=== PATIENT | female | born 1990 | race Caucasian/White ===

== ENCOUNTER 2019-10-15 16:32 | Inpatient (IN) | payer OTHER, MEDICAID, SELFPAY ==
[2019-10-15] VITALS (13 sets, daily range): BP systolic 129–186; BP diastolic 81–119; PULSE 77–94; RESP 16–23; TEMP 36.1–36.6; O2SAT 95–99; BMI 53.1
--- NOTE | 2019-10-15 16:53 | ED_ITS ---
HPI - Neuro Symptoms/Deficit <Gregory Sharp MD - Last Filed: 10/19/19 07:05> General Chief Complaint: Neuro Symptoms/Deficit Stated Complaint: thinks she had a stroke Time Seen by Provider: 10/15/19 16:45 Source: patient Mode of arrival: Wheelchair Limitations: no limitations History of Present Illness HPI Narrative: The patient arrives by he POV complaining of right-sided weakness. Onset of symptoms was 16+ hours ago. She developed weakness when she got up to go to the toilet. She called for help back. She developed right- sided weakness and had to be assisted back to her bed. She has had weakness about the course today. She has no headache, visual changes, confusion or spe ech changes. She has no facial numbness. There was no change in her face. She has had persistent weakness the right leg and right foot. She denies ability to ambulate, but she was able to get to the family car with assistance. She is medications for hypertension, her mother thinks she takes HCTZ. She has no history of diabetes. She is nonsmoker. She has no history of heart disease or CVA. On Anticoagulants: No Related Data Previous Rx's Medication Instructions Recorded VIT#96/FERROUS FUM/FA 1 tab PO Q DAY #90 02/11/11 ( Tablet) Allergies Allergy/AdvReac Type Severity Reaction Status Date / Time Penicillins Allergy Unknown Rash Verified 10/16/19 14:04 hydrocodone AdvReac Unknown Nausea Verified 10/16/19 14:04 Review of Systems <Gregory Sharp MD - Last Filed: 10/19/19 07:05> Constitutional Constitutional: Denies chills, Denies fever(s) and Reports weakness Eyes Eyes: Denies blind spots and Denies change in vision ENT Ears, Nose, Mouth, and Throat: Denies change in voice Cardiovascular Cardiovascular: Denies chest pain, Denies irregular heart rhythm, Denies lightheadedness and Denies dyspnea Respiratory Respiratory: Denies cough, Denies dyspnea and Denies wheezing Gastrointestinal Gastrointestinal: Denies abdominal pain, Denies diarrhea, Denies nausea and Denies vomiting Musculoskeletal Musculoskeletal: Denies back pain, Denies myalgias and Reports numbness Comments: Right-sided weakness Integumentary/Breasts Skin/Breast: Denies erythema and Denies rash Neurologic Neurologic: Denies confusion, Reports numbness and Reports weakness Psychiatric Psychiatric: Denies anxiety, Denies confusion and Denies depression Allergic/Immunologic Allergic/Immunologic: Denies wheezing Patient History <Gregory Sharp MD - Last Filed: 10/19/19 07:05> Medical History (Updated 10/15/19 @ 23:08 by ELMER Schumacher) Hypertension (Acute) Tobacco dependence (Acute) Surgical History No history of previous surgery (Acute) Family History (Updated 10/15/19 @ 23:07 by ELMER Schumacher) Mother CVA (cerebral vascular accident) Father Heart disease Social History household members: spouse and children Smoking Status: Current every day smoker Smoking Status: Current every day smoker alcohol intake frequency: 0-2 drinks per day Substance Use Type: does not use Exam <Gregory Sharp MD - Last Filed: 10/19/19 07:05> Initial Vital Signs Initial Vital Signs: Vital Signs Temperature 97.3 F L 10/15/19 16:35 Pulse Rate 84 10/15/19 16:35 Respiratory Rate 16 10/15/19 16:35 Blood Pressure 176/113 H 10/15/19 16:35 Pulse Oximetry 95 10/15/19 16:35 Const General: cooperative, well developed and No acute distress Nutritional Appearance: well nourished [facility] Head: normocephalic and atraumatic Mouth: oral mucosae normal and moist mucous membranes Throat: posterior oropharynx normal Eyes General: appearance normal, both eyes and all related structures Eyelids: eyelids normal Conjunctivae: conjunctivae normal Sclera: sclerae normal Pupils: PERRL EOM: EOM intact bilaterally Neck Neck: No JVD Chest Chest: normal inspection of the chest Resp Effort & Inspection: normal respiratory effort and able to speak in complete sentences Auscultation: clear to auscultation bilaterally, no rales, no rhonchi and no wheezes Cardio Rate: regular rate Rhythm: regular rhythm Heart Sounds: no click, no gallops, no murmurs and no rubs Pulses: normal peripheral pulses GI Inspection: non-distended, large pannus and obesity Palpation: soft, no hepatosplenomegaly, No guarding, No pulsatile mass and No tender Auscultation: normal bowel sounds Back/Spine/Pelvis Back: No CVA tenderness Cervical Spine: cervical ROM normal Thoracic/Lumbar Spine: thoracic and lumbar spine normal to inspection Skin General: no rashes or lesions noted and No petechiae Neuro General: patient alert and patient oriented x3 Speech: speech normal Motor: other (Right-sided weakness.) Sensory Exam: other (Right on tingling/numbness.) Other: See NIHSS. Extrem General: no pedal edema and no calf tenderness Psych Appearance: well kempt Mental Status: mental status grossly normal Attitude: cooperative Thought Content: normal Judgment: judgment good <Ethan John DO - Last Filed: 10/16/19 06:06> Initial Vital Signs Initial Vital Signs: Vital Signs Temperature 97.3 F L 10/15/19 16:35 Pulse Rate 84 10/15/19 16:35 Respiratory Rate 16 10/15/19 16:35 Blood Pressure 176/113 H 10/15/19 16:35 Pulse Oximetry 95 10/15/19 16:35 Scores <Gregory Sharp MD - Last Filed: 10/19/19 07:05> NIH Stroke Scale Level of Conciousness: Alert, keenly responsive Ask month/age: Answers both questions correctly. Open/close eyes, close hand: Performs both tasks correctly Best gaze horizontal: Normal Visual haider: No visual loss Facial palsy: Normal symetrical movement Left arm drift: No drift for full 10 sec Right arm drift: Drifts down, not to bed Left leg drift: No drift for full 10 sec Right leg drift: Some effort against gravity, cannot maintain, drifts down to bed Limb ataxia: Present in one limb Sensory on face/arms/legs: Mild to moderate sensory loss, can tell touch Best language: No aphasia, normal Dysarthria: Normal Extinction or inattention: No abnormality Total NIH Stroke scale score: 5 Course <Gregory Sharp MD - Last Filed: 10/19/19 07:05> Course Course Narrative: The patient developed symptoms greater than 16 hours ago, limited interventions at this time. Her head CT is normal. Initial NIHSS is 5, based on right-sided weakness and numbness in the right arm. The weakness has improved since arrival. She is a smoker. Initial blood pressure was 176/119. She implies that she is compliant with her hypertension medications. A repeat blood pressure reveals systolic pressure of 183. Labetalol 10 mg IV was ordered. She has received aspirin. She is not a candidate for tPA based on the timeline. A CT angio of the head and neck has been ordered, cares transition to my ER partner, Dr. John. Assuming there is no findings suggesting need for neurosurgical intervention, the patient was admitted locally. Her blood pressure is improved to 162 systolic after receiving the labetalol. The current hospitalist, Dr Powell, has already been notified of the patient. Orders Ordered: Acetaminophen (Tylenol) 650 mg PO Q4HR PRN PRN Reason: Fever/Mild Pain (1-3) Last Admin: 10/17/19 08:35 Dose: 650 mg Documented by: FAUZIA Aspirin (Aspirin Ec) 81 mg PO DAILY COUNT INCLUDES THE [facility] Last Admin: 10/18/19 10:32 Dose: 81 mg Documented by: Admin: 10/17/19 08:34 Dose: 81 mg Documented by: Admin: 10/16/19 08:24 Dose: Not Given Documented by: Admin: 10/16/19 08:16 Dose: 81 mg Documented by: FAUZIA Atorvastatin Calcium (Lipitor) 40 mg PO BEDTIME COUNT INCLUDES THE [facility] Last Admin: 10/18/19 21:15 Dose: 40 mg Documented by: Admin: 10/17/19 20:22 Dose: 40 mg Documented by: Admin: 10/16/19 21:03 Dose: 40 mg Documented by: JEFFREY Clopidogrel Bisulfate (Plavix) 75 mg PO DAILY COUNT INCLUDES THE [facility] Last Admin: 10/18/19 10:31 Dose: 75 mg Documented by: Admin: 10/17/19 08:34 Dose: 75 mg Documented by: Admin: 10/16/19 08:24 Dose: Not Given Documented by: Admin: 10/16/19 08:16 Dose: 75 mg Documented by: FAUZIA Dextrose (D50w) 25 gm IV PRN PRN; Protocol PRN Reason: Hypoglycemia Enoxaparin Sodium (Lovenox) 40 mg SUBCUT DAILY COUNT INCLUDES THE [facility] Last Admin: 10/18/19 10:31 Dose: 40 mg Documented by: MARLYS Fish Oil (Fish Oil) 1,000 mg PO DAILY COUNT INCLUDES THE [facility] Last Admin: 10/18/19 10:31 Dose: 1,000 mg Documented by: Admin: 10/17/19 08:35 Dose: 1,000 mg Documented by: FAUZIA Insulin Aspart (Novolog Flexpen) [address] [facility] COUNT INCLUDES THE [facility]; Protocol Last Admin: 10/18/19 21:12 Dose: Not Given Documented by: Admin: 10/18/19 17:03 Dose: Not Given Documented by: Admin: 10/18/19 13:04 Dose: Not Given Documented by: Admin: 10/18/19 08:42 Dose: Not Given Documented by: Admin: 10/17/19 20:22 Dose: Not Given Documented by: Admin: 10/17/19 17:13 Dose: Not Given Documented by: Admin: 10/17/19 11:48 Dose: Not Given Documented by: Admin: 10/17/19 08:13 Dose: Not Given Documented by: Admin: 10/16/19 20:54 Dose: Not Given Documented by: Admin: 10/16/19 16:53 Dose: Not Given Documented by: Admin: 10/16/19 12:11 Dose: Not Given Documented by: FAUZIA Labetalol HCl (Trandate) 10 mg IV Q4HR PRN PRN Reason: Hypertension Lisinopril (Zestril) 10 mg PO DAILY COUNT INCLUDES THE [facility] Last Admin: 10/18/19 10:31 Dose: 10 mg Documented by: MARLYS Metformin HCl (Glucophage) 500 mg PO 0800,1700 COUNT INCLUDES THE [facility] Last Admin: 10/18/19 17:11 Dose: 500 mg Documented by: Admin: 10/18/19 10:44 Dose: 500 mg Documented by: Admin: 10/17/19 17:23 Dose: 500 mg Documented by: PATRICIO Naloxone HCl (Narcan) 0.2 mg IV Q2MIN PRN PRN Reason: Opiate Reversal Ondansetron HCl (Zofran) 4 mg IV Q6HR PRN PRN Reason: Nausea And Vomiting Sodium Chloride (Normal Saline 0.9% Flush) 10 ml IV BID COUNT INCLUDES THE [facility] Last Admin: 10/18/19 21:15 Dose: 10 ml Documented by: Admin: 10/18/19 10:32 Dose: 10 ml Documented by: Admin: 10/17/19 20:22 Dose: 10 ml Documented by: PATRICIO Sodium Chloride (Normal Saline 0.9% Flush) 10 ml IV PRN PRN PRN Reason: Flush Discontinued Medications Acetaminophen (Tylenol) 650 mg PO Q6HR PRN PRN Reason: Fever/Mild Pain (1-3) Last Admin: 10/16/19 11:20 Dose: 650 mg Documented by: FAUZIA Aspirin (Aspirin) 325 mg PO NOW ONE Stop: 10/15/19 18:36 Last Admin: 10/15/19 18:57 Dose: Not Given Documented by: KAYLEY Aspirin (Aspirin Chew) 324 mg PO NOW ONE Stop: 10/15/19 18:54 Last Admin: 10/15/19 19:00 Dose: 324 mg Documented by: KAYLEY Aspirin (Aspirin Ec) 81 mg PO DAILY EDUARDO Atorvastatin Calcium (Lipitor) 20 mg PO BEDTIME EDUARDO Clopidogrel Bisulfate (Plavix) 75 mg PO DAILY EDUARDO Sodium Chloride (Normal Saline 0.9%) 1,000 mls @ 150 mls/hr IV CONT EDUARDO Last Infusion: 10/16/19 11:20 Dose: 0 mls/hr Documented by: Admin: 10/16/19 08:58 Dose: 150 mls/hr Documented by: Infusion: 10/16/19 02:59 Dose: 0 mls/hr Documented by: Admin: 10/16/19 02:59 Dose: 150 mls/hr Documented by: Infusion: 10/16/19 00:07 Dose: 150 mls/hr Documented by: Infusion: 10/15/19 21:46 Dose: 150 mls/hr Documented by: Admin: 10/15/19 17:27 Dose: 150 mls/hr Documented by: KAYLEY Sodium Chloride (Normal Saline 0.9%) 1,000 mls @ 100 mls/hr IV CONT EDUARDO Last Infusion: 10/17/19 08:36 Dose: 0 mls/hr Documented by: Admin: 10/17/19 06:56 Dose: 100 mls/hr Documented by: Infusion: 10/17/19 06:56 Dose: 100 mls/hr Documented by: Admin: 10/16/19 21:04 Dose: 100 mls/hr Documented by: JEFFREY Labetalol HCl (Trandate) 10 mg IV NOW ONE Stop: 10/15/19 17:53 Last Admin: 10/15/19 18:38 Dose: 10 mg Documented by: KAYLEY Vital Signs Vital signs: Vital Signs - 8 hr 10/15/19 16:35 10/15/19 17:24 10/15/19 17:30 Temperature 97.3 F L Pulse Rate 84 88 87 Respiratory Rate 16 20 21 Blood Pressure 176/113 H Pulse Oximetry 95 97 98 10/15/19 17:31 10/15/19 18:00 10/15/19 18:01 Temperature Pulse Rate 88 77 82 Respiratory Rate 20 20 20 Blood Pressure 182/99 H 186/103 H Pulse Oximetry 97 98 98 10/15/19 18:30 10/15/19 18:38 10/15/19 18:44 Temperature Pulse Rate 77 94 H 90 Respiratory Rate 22 22 23 Blood Pressure 176/119 H 173/98 H Pulse Oximetry 97 99 97 10/15/19 19:08 Temperature Pulse Rate 83 Respiratory Rate Blood Pressure 162/95 H Pulse Oximetry <Ethan John, - Last Filed: 10/16/19 06:06> Course Course Narrative: Patient received in sign-out from daytime provider. I have performed an independent history and physical and concur with the above notes. Currently waiting on consultation with Stroke Team I have now spoken with Stroke Neurologist at [facility] and discussed the case. They recommend admission, echo, coags, and MRI Orders Ordered: Acetaminophen (Tylenol) 650 mg PO Q4HR PRN PRN Reason: Fever/Mild Pain (1-3) Last Admin: 10/17/19 08:35 Dose: 650 mg Documented by: FAUZIA Aspirin (Aspirin Ec) 81 mg PO DAILY COUNT INCLUDES THE [facility] Last Admin: 10/18/19 10:32 Dose: 81 mg Documented by: Admin: 10/17/19 08:34 Dose: 81 mg Documented by: Admin: 10/16/19 08:24 Dose: Not Given Documented by: Admin: 10/16/19 08:16 Dose: 81 mg Documented by: FAUZIA Atorvastatin Calcium (Lipitor) 40 mg PO BEDTIME COUNT INCLUDES THE [facility] Last Admin: 10/18/19 21:15 Dose: 40 mg Documented by: Admin: 10/17/19 20:22 Dose: 40 mg Documented by: Admin: 10/16/19 21:03 Dose: 40 mg Documented by: JEFFREY Clopidogrel Bisulfate (Plavix) 75 mg PO DAILY COUNT INCLUDES THE [facility] Last Admin: 10/18/19 10:31 Dose: 75 mg Documented by: Admin: 10/17/19 08:34 Dose: 75 mg Documented by: Admin: 10/16/19 08:24 Dose: Not Given Documented by: Admin: 10/16/19 08:16 Dose: 75 mg Documented by: FAUZIA Dextrose (D50w) 25 gm IV PRN PRN; Protocol PRN Reason: Hypoglycemia Enoxaparin Sodium (Lovenox) 40 mg SUBCUT DAILY COUNT INCLUDES THE [facility] Last Admin: 10/18/19 10:31 Dose: 40 mg Documented by: MARLYS Fish Oil (Fish Oil) 1,000 mg PO DAILY COUNT INCLUDES THE [facility] Last Admin: 10/18/19 10:31 Dose: 1,000 mg Documented by: Admin: 10/17/19 08:35 Dose: 1,000 mg Documented by: FAUZIA Insulin Aspart (Novolog Flexpen) 0 unit SUBCUT ACHS COUNT INCLUDES THE [facility]; Protocol Last Admin: 10/18/19 21:12 Dose: Not Given Documented by: Admin: 10/18/19 17:03 Dose: Not Given Documented by: Admin: 10/18/19 13:04 Dose: Not Given Documented by: Admin: 10/18/19 08:42 Dose: Not Given Documented by: Admin: 10/17/19 20:22 Dose: Not Given Documented by: Admin: 10/17/19 17:13 Dose: Not Given Documented by: Admin: 10/17/19 11:48 Dose: Not Given Documented by: Admin: 10/17/19 08:13 Dose: Not Given Documented by: Admin: 10/16/19 20:54 Dose: Not Given Documented by: Admin: 10/16/19 16:53 Dose: Not Given Documented by: Admin: 10/16/19 12:11 Dose: Not Given Documented by: FAUZIA Labetalol HCl (Trandate) 10 mg IV Q4HR PRN PRN Reason: Hypertension Lisinopril (Zestril) 10 mg PO DAILY COUNT INCLUDES THE [facility] Last Admin: 10/18/19 10:31 Dose: 10 mg Documented by: MARLYS Metformin HCl (Glucophage) 500 mg PO 0800,1700 COUNT INCLUDES THE [facility] Last Admin: 10/18/19 17:11 Dose: 500 mg Documented by: Admin: 10/18/19 10:44 Dose: 500 mg Documented by: Admin: 10/17/19 17:23 Dose: 500 mg Documented by: PATRICIO Naloxone HCl (Narcan) 0.2 mg IV Q2MIN PRN PRN Reason: Opiate Reversal Ondansetron HCl (Zofran) 4 mg IV Q6HR PRN PRN Reason: Nausea And Vomiting Sodium Chloride (Normal Saline 0.9% Flush) 10 ml IV BID COUNT INCLUDES THE [facility] Last Admin: 10/18/19 21:15 Dose: 10 ml Documented by: Admin: 10/18/19 10:32 Dose: 10 ml Documented by: Admin: 10/17/19 20:22 Dose: 10 ml Documented by: PATRICIO Sodium Chloride (Normal Saline 0.9% Flush) 10 ml IV PRN PRN PRN Reason: Flush Discontinued Medications Acetaminophen (Tylenol) 650 mg PO Q6HR PRN PRN Reason: Fever/Mild Pain (1-3) Last Admin: 10/16/19 11:20 Dose: 650 mg Documented by: FAUZIA Aspirin (Aspirin) 325 mg PO NOW ONE Stop: 10/15/19 18:36 Last Admin: 10/15/19 18:57 Dose: Not Given Documented by: ELARTIN Aspirin (Aspirin Chew) 324 mg PO NOW ONE Stop: 10/15/19 18:54 Last Admin: 10/15/19 19:00 Dose: 324 mg Documented by: RMARTIN Aspirin (Aspirin Ec) 81 mg PO DAILY COUNT INCLUDES THE [facility] Atorvastatin Calcium (Lipitor) 20 mg PO BEDTIME COUNT INCLUDES THE [facility] Clopidogrel Bisulfate (Plavix) 75 mg PO DAILY COUNT INCLUDES THE [facility] Sodium Chloride (Normal Saline 0.9%) 1,000 mls @ 150 mls/hr IV CONT COUNT INCLUDES THE [facility] Last Infusion: 10/16/19 11:20 Dose: 0 mls/hr Documented by: Admin: 10/16/19 08:58 Dose: 150 mls/hr Documented by: Infusion: 10/16/19 02:59 Dose: 0 mls/hr Documented by: Admin: 10/16/19 02:59 Dose: 150 mls/hr Documented by: Infusion: 10/16/19 00:07 Dose: 150 mls/hr Documented by: Infusion: 10/15/19 21:46 Dose: 150 mls/hr Documented by: Admin: 10/15/19 17:27 Dose: 150 mls/hr Documented by: KAYLEY Sodium Chloride (Normal Saline 0.9%) 1,000 mls @ 100 mls/hr IV CONT EDUARDO Last Infusion: 10/17/19 08:36 Dose: 0 mls/hr Documented by: Admin: 10/17/19 06:56 Dose: 100 mls/hr Documented by: Infusion: 10/17/19 06:56 Dose: 100 mls/hr Documented by: Admin: 10/16/19 21:04 Dose: 100 mls/hr Documented by: JEFFREY Labetalol HCl (Trandate) 10 mg IV NOW ONE Stop: 10/15/19 17:53 Last Admin: 10/15/19 18:38 Dose: 10 mg Documented by: KAYLEY Vital Signs Vital signs: Vital Signs - 8 hr 10/15/19 16:35 10/15/19 17:24 10/15/19 17:30 Temperature 97.3 F L Pulse Rate 84 88 87 Respiratory Rate 16 20 21 Blood Pressure 176/113 H Pulse Oximetry 95 97 98 10/15/19 17:31 10/15/19 18:00 10/15/19 18:01 Temperature Pulse Rate 88 77 82 Respiratory Rate 20 20 20 Blood Pressure 182/99 H 186/103 H Pulse Oximetry 97 98 98 10/15/19 18:30 10/15/19 18:38 10/15/19 18:44 Temperature Pulse Rate 77 94 H 90 Respiratory Rate 22 22 23 Blood Pressure 176/119 H 173/98 H Pulse Oximetry 97 99 97 10/15/19 19:08 Temperature Pulse Rate 83 Respiratory Rate Blood Pressure 162/95 H Pulse Oximetry MDM - Neuro Symptoms/Deficit <Gregory Sharp MD - Last Filed: 10/19/19 07:05> Lab Data Result diagrams: 10/17/19 06:00 10/17/19 06:00 Labs: Lab Results 10/15/19 10/15/19 10/15/19 Range/Units 16:47 16:47 16:47 WBC 9.3 (4.5-11.0) X10^3/uL RBC 6.26 H (4.0-5.2) X10^6/uL Hgb 19.1 H (12.0-16.0) g/dL Hct 57.4 H (36-46) % MCV 91.7 (80-100) fL MCH 30.5 (26-34) PG MCHC 33.3 (30-36) % RDW 14.9 H (11.6-14.8) % Plt Count 209 (150-400) X10^3/uL Neut % (Auto) 50.4 (50-75) % Lymph % (Auto) 39.6 (25-40) % [place] % (Auto) 8.5 (3-14) % Eos % (Auto) 0.9 L (2-4) % Baso % (Auto) 0.6 (0-2) % Neut # (Auto) 4700 (1050-3870) /uL Lymph # (Auto) 3700 (4011-0762) /uL [place] # (Auto) 800 (0-900) /uL Eos # (Auto) 100 (0-450) /uL Baso # (Auto) 100 (0-100) /uL PT 11.4 (10.1-12.7) SECONDS INR 1.0 (0.9-1.3) APTT 41 H (26.4-36.2) SECONDS Sodium 137 (137-145) mmol/L Potassium 4.0 (3.4-5.1) mmol/L Chloride 107 (98-107) mmol/L Carbon Dioxide 26 (22-32) mmol/L BUN 13 (7-17) mg/dL Creatinine 0.63 (0.52-1.04) mg/dL Estimated GFR > 60.0 (>60) mL/min BUN/Creatinine Ratio 20.6 (6-22) Glucose 123 H (70-100) mg/dL Calcium 9.1 (8.4-10.2) mg/dL Ethyl Alcohol < 10 ( - 10) mg/dL COVID-19 PCR (Negative) 10/15/19 Range/Units 19:04 WBC (4.5-11.0) X10^3/uL RBC (4.0-5.2) X10^6/uL Hgb (12.0-16.0) g/dL Hct (36-46) % MCV (80-100) fL MCH (26-34) PG MCHC (30-36) % RDW (11.6-14.8) % Plt Count (150-400) X10^3/uL Neut % (Auto) (50-75) % Lymph % (Auto) (25-40) % [place] % (Auto) (3-14) % Eos % (Auto) (2-4) % Baso % (Auto) (0-2) % Neut # (Auto) (1861-0462) /uL Lymph # (Auto) (1441-4403) /uL [place] # (Auto) (0-900) /uL Eos # (Auto) (0-450) /uL Baso # (Auto) (0-100) /uL PT (10.1-12.7) SECONDS INR (0.9-1.3) APTT (26.4-36.2) SECONDS Sodium (137-145) mmol/L Potassium (3.4-5.1) mmol/L Chloride (98-107) mmol/L Carbon Dioxide (22-32) mmol/L BUN (7-17) mg/dL Creatinine (0.52-1.04) mg/dL Estimated GFR (>60) mL/min BUN/Creatinine Ratio (6-22) Glucose (70-100) mg/dL Calcium (8.4-10.2) mg/dL Ethyl Alcohol ( - 10) mg/dL COVID-19 PCR Negative (Negative) Point of Care Testing Glucose POC [address] scan - head: Radiologist's Impression: 80 Gregory Sharp MD Find Patient Imaging - Mehreen Hart 29 F 1990 ACTIVITY DATE EXAM STATUS AUTHOR 10/15/19 16:[address] [address] [address] Scan Report Signed Patient: Mehreen HartMR#: [id number] : 1990Acct:[id number] Age/Sex: 29 / FDate of Service: 10/15/19 Loc: ED Accession Number: [id number] Procedure: CT Stroke Ordering Provider: Gregory Sharp MD PROCEDURE: CT STROKE INDICATIONS: Right-sided weakness, suspect CVA. TECHNIQUE: Noncontrast 4.5 mm thick angled axial sections acquired from the foramen magnum to the vertex, with coronal reformats. For radiation dose reduction, the following was used: automated exposure control, adjustment of mA and/or kV according to patient size. COMPARISON: None. FINDINGS: Image quality: Excellent. CSF spaces: Basal cisterns are patent. No extra-axial fluid collections. Ventricles are normal in size and shape. Brain: No midline shift. No intracranial masses or hemorrhage. Fontanez-white matter interface is normal. Skull and face: Calvarium and visualized facial bones are intact, without suspicious lesions. Sinuses: Visualized sinuses and mastoids are clear. IMPRESSION: 1. No CT evidence of acute intracranial process. 2. Findings called to Dr. Sharp in the emergency room at 16:10 hours [place] daylight time. This study fulfills neurological imaging criteria for inclusion or exclusion of acute stroke therapies based on available published neurological imaging guidelines. Dictated by: Kenia Ghosh M.D. on 10/15/2019 at 16:07 Approved by: Kenia Ghosh M.D. on 10/15/2019 at 16:11 ECG Data Attestation: I personally reviewed and interpreted this ECG as follows: (Normal sinus rhythm, rate 91 beats per minute. Normal intervals. Poor R-wave progression to the anterior leads. No acute ST T wave changes. ) <Ethan John, - Last Filed: 10/16/19 06:06> Lab Data Labs: Lab Results 10/15/19 10/15/19 10/15/19 Range/Units 16:47 16:47 16:47 WBC 9.3 (4.5-11.0) X10^3/uL RBC 6.26 H (4.0-5.2) X10^6/uL Hgb 19.1 H (12.0-16.0) g/dL Hct 57.4 H (36-46) % MCV 91.7 (80-100) fL MCH 30.5 (26-34) PG MCHC 33.3 (30-36) % RDW 14.9 H (11.6-14.8) % Plt Count 209 (150-400) X10^3/uL Neut % (Auto) 50.4 (50-75) % Lymph % (Auto) 39.6 (25-40) % [place] % (Auto) 8.5 (3-14) % Eos % (Auto) 0.9 L (2-4) % Baso % (Auto) 0.6 (0-2) % Neut # (Auto) 4700 (1132-3453) /uL Lymph # (Auto) 3700 (3178-5502) /uL [place] # (Auto) 800 (0-900) /uL Eos # (Auto) 100 (0-450) /uL Baso # (Auto) 100 (0-100) /uL PT 11.4 (10.1-12.7) SECONDS INR 1.0 (0.9-1.3) APTT 41 H (26.4-36.2) SECONDS Sodium 137 (137-145) mmol/L Potassium 4.0 (3.4-5.1) mmol/L Chloride 107 (98-107) mmol/L Carbon Dioxide 26 (22-32) mmol/L BUN 13 (7-17) mg/dL Creatinine 0.63 (0.52-1.04) mg/dL Estimated GFR > 60.0 (>60) mL/min BUN/Creatinine Ratio 20.6 (6-22) Glucose 123 H (70-100) mg/dL Calcium 9.1 (8.4-10.2) mg/dL Ethyl Alcohol < 10 ( - 10) mg/dL COVID-19 PCR (Negative) 10/15/19 Range/Units 19:04 WBC (4.5-11.0) X10^3/uL RBC (4.0-5.2) X10^6/uL Hgb (12.0-16.0) g/dL Hct (36-46) % MCV (80-100) fL MCH (26-34) PG MCHC (30-36) % RDW (11.6-14.8) % Plt Count (150-400) X10^3/uL Neut % (Auto) (50-75) % Lymph % (Auto) (25-40) % [place] % (Auto) (3-14) % Eos % (Auto) (2-4) % Baso % (Auto) (0-2) % Neut # (Auto) (4543-0837) /uL Lymph # (Auto) (5926-6914) /uL [place] # (Auto) (0-900) /uL Eos # (Auto) (0-450) /uL Baso # (Auto) (0-100) /uL PT (10.1-12.7) SECONDS INR (0.9-1.3) APTT (26.4-36.2) SECONDS Sodium (137-145) mmol/L Potassium (3.4-5.1) mmol/L Chloride (98-107) mmol/L Carbon Dioxide (22-32) mmol/L BUN (7-17) mg/dL Creatinine (0.52-1.04) mg/dL Estimated GFR (>60) mL/min BUN/Creatinine Ratio (6-22) Glucose (70-100) mg/dL Calcium (8.4-10.2) mg/dL Ethyl Alcohol ( - 10) mg/dL COVID-19 PCR Negative (Negative) Point of Care Testing Glucose POC 94 Critical Care Time <Gregory Sharp MD - Last Filed: 10/19/19 07:05> Critical Care Time Critical Care Time: Yes Total Critical Care Time: 30 Attestation: Time included initial evaluation of patient, medical decision making, review of EKG, radiology and lab data, and discussion of the clinical findings with the patient. Time included consultation with the admitting hospitalist. Discharge Plan Departure Patient Disposition: Admitted As Inpatient Clinical Impression: Acute CVA (cerebrovascular accident) Hypertension Qualifiers: Hypertension type: essential hypertension Qualified Code(s): I10 - Essential (primary) hypertension Discharge Date/Time: 10/15/19 21:53 Admit Date/Time: 10/15/19 20:53 Admit Provider: Emilie Verduzco
[2019-10-15] MEDS: SODIUM CHLORIDE 0.9% 1,000 ML 150 ML IV (17:27)
[2019-10-15 17:45] LABS: Add Manual Diff / Slide Review NO; BUN Creatinine Ratio 20.6 (6-22); Basophils Absolute Auto 100 /uL (0-100); Basophils Percent Auto 0.6 % (0-2); Blood Urea Nitrogen 13 mg/dL (7-17); Calcium 9.1 mg/dL (8.4-10.2); Carbon Dioxide 26 mmol/L (22-32); Chloride 107 mmol/L (98-107); Eosinophils Absolute Auto 100 /uL (0-450); Eosinophils Percent Auto 0.9 % (2-4); Estimated Glomerular Filt Rate > 60.0 mL/min (>60); Ethanol (ETOH) < 10 mg/dL; Glucose 123 mg/dL (70-100); HEMOLYSIS 39 (0-50); Hematocrit 57.4 % (36-46); Hemoglobin 19.1 g/dL (12.0-16.0); Lymphocytes Absolute Auto 3700 /uL (1100-4500); Lymphocytes Percent Auto 39.6 % (25-40); Mean Corpuscular HGB Conc 33.3 % (30-36); Mean Corpuscular Hemoglobin 30.5 PG (26-34); Mean Corpuscular Volume 91.7 fL (80-100); Monocytes Absolute Auto 800 /uL (0-900); Monocytes Percent Auto 8.5 % (3-14); Neutrophils Absolute Auto 4700 /uL (1500-7000); Neutrophils Percent Auto 50.4 % (50-75); Platelet Count 209 X10^3/uL (150-400); Red Cell Distribution Width 14.9 % (11.6-14.8); Sodium 137 mmol/L (137-145); White Blood Cell Count 9.3 X10^3/uL (4.5-11.0)
[2019-10-15 17:46] LABS: Prothrombin Time 11.4 SECONDS (10.1-12.7); Red Blood Cell Count 6.26 X10^6/uL (4.0-5.2)
[2019-10-15 17:49] LABS: PTT Partial Thromboplastin Tim 41 SECONDS (26.4-36.2)
[2019-10-15] MEDS: LABETALOL 20 MG/4 ML SYRINGE 10 MG IV (18:38)
--- NOTE | 2019-10-15 18:58 | DI.CT.S_ITS ---
PROCEDURE: CT ANGIO HEAD AND NECK INDICATIONS: CVA with right-sided deficit TECHNIQUE: Pre-contrast 4.5 mm thick sections acquired from the foramen magnum to the vertex. After the administration of intravenous contrast, 1 mm thick sections acquired from the aortic arch through the [place]. Post-contrast 4.5 mm thick sections then re-acquired from the foramen magnum to the vertex. 3-dimensional hfatcci-coiuuobia-swoervndpj (MIP) and/or volume rendering reformats were acquired of the central intracranial vasculature and neck separately. COMPARISON: None. FINDINGS: Image quality: Excellent. HEAD CT ANGIOGRAPHY: Anterior circulation: Intracranial internal carotid arteries are normal in size and flow. The flow within the paired anterior cerebral arteries is normal and symmetric. The flow within the middle cerebral arteries is normal and symmetric. The anterior communicating artery is seen. No aneurysms are seen. Posterior circulation: Visualized portions of the vertebral arteries demonstrate normal caliber, and join to form a normal appearing basilar artery. Flow within the posterior cerebral arteries is normal and symmetric. No aneurysms are seen. NECK CT ANGIOGRAPHY: Carotid system: The great vessels demonstrate a conventional anatomy as they arise from the aortic arch. The origins of the common carotid arteries appear patent. The common carotid arteries demonstrate normal caliber and courses. The bifurcation regions are both widely patent. The internal carotid arteries demonstrate normal calibers and courses. Posterior circulation: The origins of the vertebral arteries both appear widely patent. The more superior extracranial portions of both vertebral arteries also demonstrate normal courses and calibers. They join to form a normal appearing basilar artery. Soft tissues: Visualized neck soft tissues demonstrate no suspicious abnormalities. Bones: No suspicious bony lesions. Visualized cervical spine appears normally aligned. IMPRESSION: Limited exam due to patient body habitus. No branch occlusion or hemodynamically significant stenosis of the major intracranial arterial circulation. Cervical carotid and vertebral arteries demonstrate wide patency. Any quantitative measurements of stenosis were performed using NASCET criteria. Dictated by: Ravi Acharya M.D. on 10/15/2019 at 19:49 Approved by: Ravi Acharya M.D. on 10/15/2019 at 19:53
[2019-10-15] MEDS: ASPIRIN 81 MG CHEW TAB 324 MG PO (19:00)
[2019-10-15 20:02] LABS: COVID19 -Nasal RAPID Negative (Negative)
--- NOTE | 2019-10-15 22:51 | PC.NURSE ---
Pt arrived to RM 210 from ED @ 2200 Alert/oriented. SpO2 96% RA Pt is able to bend right arm to side, unable to move right leg at all. Pt oriented to room & Call system Call light w/in reach, bed alarm on for pt safety. Continue w/plan of care.
--- NOTE | 2019-10-15 23:09 | P.HP_ITS ---
History of Present Illness History of Present Illness Date Patient Seen: 10/15/19 Time Patient Seen: 21:45 Date of Onset of Symptoms: 10/14/19 Chief complaint: thinks she had a stroke Narrative: Mehreen Perez is a 29-year-old morbidly obese female resident of [facility] and smoker with a limited medical history though does include h ypertension and use of a copper T IUD presented to the emergency department after a less than 24 hour history of development of weakness on her left side. She was in the bathroom and sitting on the toilet when she felt her left arm and leg go numb. She was unable to move off of the toilet and summoned her to come and a sister into bed. When she woke up this morning she continued to have weakness on that side. She denies a history of cervical neck problems, denies aphasia, difficulty swallowing, vision changes, headache, chest pain, shortness of breath, nausea or vomiting, dysuria, diarrhea or constipation, or falling. She states that she takes medications for hypertension but does not know what it is. In the ED they assessed her NIH score of 5. CT of the brain and CTA of the head neck were both negative for acute intracranial process. Her case was discussed with [facility] who recommended close monitoring of patient overnight and to have her undergo MRI imaging of her head as well as an echocardiogram. Temperature 97.8, blood pressure 129/81, heart rate 94, respiratory rate 20, oxygen saturation 97% on room air, she weighs 158.6 kg with a BMI 53.1. WBC 9.3, RBC 6.26, hemoglobin 19.1, hematocrit 57.4, platelet count of 209, sodium 137, potassium 4.0, chloride 107, CO2 26, creatinine 0.63, BUN 13, GFR greater than 60, glucose 123, calcium 9.1, and COVID-19 negative. Patient History Medical History (Updated 10/15/19 @ 23:08 by ELMER Schumacher) Hypertension (Acute) Tobacco dependence (Acute) Surgical History No history of previous surgery (Acute) Family & Social History Family History (Updated 10/15/19 @ 23:07 by ELMER Schumacher) Mother CVA (cerebral vascular accident) Father Heart disease Social History: household members spouse,children Prior Living Arrangements House Safety & Behavioral: Feels Safe in Current Yes Environment Been Physically Hurt or No Threatened By a Person Suicidal Ideation Description None Suicide Plan Description No Plan Tobacco & Substance use: Smoking Status Current every day smoker alcohol intake frequency 0-2 drinks per day Substance Use Type does not use Meds Home Medications and Allergies Home Medications Medication Instructions Recorded Confirmed Type VIT#96/FERROUS FUM/FA 1 tab PO Q DAY #90 02/11/11 Rx ( Tablet) Allergies Allergy/AdvReac Type Severity Reaction Status Date / Time From Vicodin Allergy Unknown NAUSEA Uncoded 06/16/17 12:08 Penicillin Allergy Unknown RASH Uncoded 06/16/17 12:08 Review of Systems Review of Systems ROS: Yes All systems reviewed with the patient and are negative except as otherwise documented Exam Vital Signs (past 8 hours): - 10/15/19 16:35 10/15/19 17:24 10/15/19 17:30 Temperature 97.3 F L Pulse Rate 84 88 87 Respiratory Rate 16 20 21 Blood Pressure 176/113 H Pulse Oximetry 95 97 98 10/15/19 17:31 10/15/19 18:00 10/15/19 18:01 Temperature Pulse Rate 88 77 82 Respiratory Rate 20 20 20 Blood Pressure 182/99 H 186/103 H Pulse Oximetry 97 98 98 10/15/19 18:30 10/15/19 18:38 10/15/19 18:44 Temperature Pulse Rate 77 94 H 90 Respiratory Rate 22 22 23 Blood Pressure 176/119 H 173/98 H Pulse Oximetry 97 99 97 10/15/19 19:08 10/15/19 22:15 Temperature 97.8 F Pulse Rate 83 94 H Respiratory Rate 20 Blood Pressure 162/95 H 129/81 Pulse Oximetry 97 Oxygen Delivery Method Room Air Narrative Exam Narrative: Gen: Alert, oriented, morbidly obese 29 y.o. female, laying flat on the gurney HEENT: normocephalic, atraumatic, conjunctiva clear, sclera non-icteric, oral mucosa pink and moist Neck: supple, full ROM, no JVD, trachea is midline Resp: Lungs CTA, non-labored breathing CV: RRR, no murmur or rubs Abd: soft, non-tender, normoactive BTs Skin: Somewhat diaphoretic, no lesions or rashes, dry and intact Neuro: Alert and oriented X 4 w left-sided weakness. Speech clear and coherent. Nursing NIH stroke scale assessment at 0100 score of 8 Extremities: Normally is ambulatory, negative Mahad?s sign Psyche: normal mood and affect. Objective Labs Result Diagrams: 10/15/19 16:47 10/15/19 16:47 Labs: Laboratory Results - last 24 hr 10/15/19 10/15/19 10/15/19 16:47 16:47 16:47 WBC 9.3 RBC 6.26 H Hgb 19.1 H Hct 57.4 H MCV 91.7 MCH 30.5 MCHC 33.3 RDW 14.9 H Plt Count 209 Neut % (Auto) 50.4 Lymph % (Auto) 39.6 Mccreary % (Auto) 8.5 Eos % (Auto) 0.9 L Baso % (Auto) 0.6 Neut # (Auto) 4700 Lymph # (Auto) 3700 Mccreary # (Auto) 800 Eos # (Auto) 100 Baso # (Auto) 100 PT 11.4 INR 1.0 APTT 41 H Sodium 137 Potassium 4.0 Chloride 107 Carbon Dioxide 26 BUN 13 Creatinine 0.63 Estimated GFR > 60.0 BUN/Creatinine Ratio 20.6 Glucose 123 H Calcium 9.1 Ethyl Alcohol < 10 COVID-19 PCR 10/15/19 19:04 WBC RBC Hgb Hct MCV MCH MCHC RDW Plt Count Neut % (Auto) Lymph % (Auto) Mccreary % (Auto) Eos % (Auto) Baso % (Auto) Neut # (Auto) Lymph # (Auto) Mccreary # (Auto) Eos # (Auto) Baso # (Auto) PT INR APTT Sodium Potassium Chloride Carbon Dioxide BUN Creatinine Estimated GFR BUN/Creatinine Ratio Glucose Calcium Ethyl Alcohol COVID-19 PCR Negative Assessment & Plan Assessment & Plan narrative: Preethi Hart will be admitted as an inpatient for further evaluation of a left-sided CVA. Suspected left-sided CVA, acute, present on admission -CT of the brain and CTA of the head and neck were negative for acute intracranial process -she will undergo MRI of the head tomorrow -echocardiogram -start Plavix and aspirin on 10/15 if no evidence of an intracranial bleed -allow for permissive hypertension for brain perfusion -initiate atorvastatin 40 mg p.o. daily for anti-platelet effect -consider tertiary hospital transfer if patient develops worsening symptoms -PT/OT/speech will need to see her in the morning Tobacco dependence, chronic, present on admission -encouraged patient to quit smoking as this represents significant risk factor for CVA Morbid obesity, chronic, present on admission -she has a BMI of 53.2, she will be counseled on the need for weight loss Consults: ED consulted with [facility]. Patient is admitted under inpatient status with expected length of stay greater than 2 midnights due to severity of presenting symptoms, risk of adverse event, and complexity of treatment plan. FEN: IV NS at 100 mL/hour, NPO until swallow screen then low-sodium diet,BMP and magnesium in the am. VTE prophylaxis: Bilateral SCDs Dispo: Unknown at this time, she may require a short rehab stay or in-home rehabilitation Code Status: Full code as discussed with patient COVID-19 COVID-19 status: Negative Result date/Date tested (Pos, Neg/Pending): 10/15/19 Quality VTE Deep Vein Thrombosis/Pulmonary Embolism Present on Admission: No
[2019-10-16] VITALS (7 sets, daily range): BP systolic 145–169; BP diastolic 86–105; PULSE 77–98; RESP 16–20; TEMP 36.1–37.3; O2SAT 95–98
[2019-10-16] MEDS: SODIUM CHLORIDE 0.9% 1,000 ML 150 ML IV ×2 (02:59→08:58)
--- NOTE | 2019-10-16 05:48 | PC.NURSE ---
Slept most of the shift, awake now swallow evaluation done. No coughing noted, swallow without any problems. Able to move her RUE & RLE in bed & repositioned self in bed indep. Declined to transfer to BS, used bed barragan in bed but unable to void. Bladder scanned FLIGHT STEWARD reported 80 cc in the bladder. NPO all shift per order, will cont. POC & monitor.
[2019-10-16 06:25] LABS: HEMOLYSIS < 15 (0-50); Potassium 3.6 mmol/L (3.4-5.1)
[2019-10-16 06:26] LABS: Alanine Aminotransferase 37 IU/L (<35); Albumin 3.5 g/dL (3.5-5.0); Albumin Globulin Ratio 1.1 (1.0-2.8); Alkaline Phosphatase 66 U/L (38-126); Aspartate Aminotransferase 32 IU/L (14-36); BUN Creatinine Ratio 20.3 (6-22); Bilirubin Total 0.7 mg/dL (0.2-1.3); Blood Urea Nitrogen 13 mg/dL (7-17); Calcium 8.5 mg/dL (8.4-10.2); Carbon Dioxide 22 mmol/L (22-32); Chloride 109 mmol/L (98-107); Estimated Glomerular Filt Rate > 60.0 mL/min (>60); Globulin 3.3 g/dL (1.7-4.1); Glucose 118 mg/dL (70-100); Sodium 137 mmol/L (137-145); Total Protein 6.8 g/dL (6.3-8.2)
[2019-10-16 06:28] LABS: Add Manual Diff / Slide Review NO; Basophils Absolute Auto 0 /uL (0-100); Basophils Percent Auto 0.6 % (0-2); Eosinophils Absolute Auto 100 /uL (0-450); Hemoglobin 18.2 g/dL (12.0-16.0); Lymphocytes Absolute Auto 3600 /uL (1100-4500); Lymphocytes Percent Auto 46.6 % (25-40); Mean Corpuscular HGB Conc 33.8 % (30-36); Mean Corpuscular Hemoglobin 30.8 PG (26-34); Mean Corpuscular Volume 91.2 fL (80-100); Monocytes Absolute Auto 600 /uL (0-900); Neutrophils Absolute Auto 3400 /uL (1500-7000); Neutrophils Percent Auto 43.8 % (50-75); Platelet Count 189 X10^3/uL (150-400); Red Blood Cell Count 5.92 X10^6/uL (4.0-5.2); Red Cell Distribution Width 14.7 % (11.6-14.8); White Blood Cell Count 7.8 X10^3/uL (4.5-11.0)
[2019-10-16 07:45] LABS: Cholesterol 166 mg/dL (140-199); HDL Cholesterol 25 mg/dL (40-60); LDL Cholesterol Calculated 99 mg/dL (<100); Triglycerides 209 mg/dL (35-150)
[2019-10-16] MEDS: CLOPIDOGREL 75 MG TABLET PO (08:16)
[2019-10-16] MEDS: ASPIRIN EC 81 MG TABLET PO (08:16)
[2019-10-16 08:52] LABS: Ur Creatinine Normal (Normal); Ur Specific Gravity Normal (Normal); Urine pH Normal (Normal)
[2019-10-16 08:53] LABS: UR Morphine/Opiate cutoff 300 Negative (Negative); Urine Amphetamines Positive (Negative); Urine Barbiturates Negative (Negative); Urine Benzodiazepines Negative (Negative); Urine Cocaine Negative (Negative); Urine MDMA Negative (Negative); Urine Methadone Negative (Negative); Urine Methamphetamines Positive (Negative); Urine Oxycodone Negative (Negative); Urine Phencyclidine Negative (Negative); Urine Tetrahydrocannabinol Negative (Negative); Urine Tricyclic Antidepressant Negative (Negative)
--- NOTE | 2019-10-16 10:08 | PC.NURSE ---
Day shift: Pt off unit for MRI at approx 1005.
--- NOTE | 2019-10-16 10:16 | PC.NURSE ---
Day shift: Per Benito ct mri technologist Pt did not fit in MRI. Dr Melgar is aware. Pt back in room at this time. Call light in reach. Agrees to not get OOB w/o help from staff.
--- NOTE | 2019-10-16 10:34 | DI.ECHO.S_ITS ---
[facility]---------+ [facility] +---------+ : : [address] : : : : [id number] : : : : Phone: [phone] Echocardiogram Report + + :Name: MAURICE WANG Study Date: 10/16/2019 Height: 68 in : :[facility] Weight: 349 lb : : Gender: Female BSA: 2.6 m2 : :: 1990 Age: 29 yrs BP: 133/86 mmHg: :Reason For Study: CVA : :Ordering Physician: : :HOSPITALISTKATLIN Performed By: Brooke Kilgore : :Referring: KUSH JETT : + + Interpretation Summary The ejection fraction is estimated to be 55-60%. Injection of contrast documented no interatrial shunt. Procedure: A two-dimensional transthoracic echocardiogram with color flow and Doppler was performed. The study quality was technically adequate. A saline contrast injection was performed to assess for cardiac shunting. The injection was performed through an intravenous line in the left arm. There is no prior echocardiogram noted for this patient. The patient was in sinus rhythm with heart rates between 69-100 bpm during the exam. Left Ventricle: The left ventricle is normal in size and wall thickness. The ejection fraction is estimated to be 55-60%. Left ventricular wall motion is normal. Diastolic parameters suggest probable normal left ventricular diastolic function and normal filling pressures. Right Ventricle: The right ventricle is normal in size and function. Atria: Both atria are normal in size. A prominent eustachian valve is noted. There is no Doppler evidence for an interatrial shunt. Injection of contrast documented no interatrial shunt. Mitral Valve: The mitral valve is normal in structure and function. There is trace mitral regurgitation. Aortic Valve: The aortic valve is trileaflet. The aortic valve opens well. There is no aortic valve stenosis. No aortic regurgitation is present. Tricuspid Valve: The tricuspid valve is normal in structure and function. Pulmonary artery pressures cannot be estimated because of the lack of a measurable TR jet velocity but the IVC suggests a CVP of around 3 mmHg. There is a trace or physiologic amount of tricuspid regurgitation. Pulmonic Valve: The pulmonic valve is not well visualized. The pulmonic valve is not well seen, but is grossly normal. There is no pulmonic valvular regurgitation. Great Vessels: The aortic root is normal size. The ascending aorta is mildly enlarged. The IVC is of normal diameter and collapses greater than 50% with a sniff. This suggests a low right atrial pressure of 3 mm Hg. Pericardium/ Pleura There is no pericardial effusion. There is no pleural effusion. MMode/2D Measurements & Calculations LVIDd: 5.0 cm LVOT diam: 2.1 cm LVIDs: 3.5 cm Ao root diam: 3.4 cm FS: 29.8 % asc Aorta Diam: 3.6 cm EPSS: 1.4 cm Ao Arch Diam (Prox Trans): 2.9 cm IVSd: 0.96 cm LVPWd: 1.1 cm LV sawyer. diameter/BSA (cm/m^2): 1.9 LV sys. diameter/BSA (cm/m^2): 1.4 LA A2 area: 20.1 cm2 RA long axis: 5.2 cm LA A4 area: 17.6 cm2 RA area: 20.2 cm2 LA length (vol): 5.6 cm RA vol: 66.3 ml LA vol: 53.9 ml RA : 25.6 ml/m2 LA vol index: 20.8 ml/m2 IVC diam: 1.5 cm RVD1 (basal): 3.8 cm TAPSE: 2.3 cm Doppler Measurements & Calculations Ao V2 max: 136.8 cm/sec LVOT Max John: 101.8 cm/sec Ao V2 mean: 90.9 cm/sec LV V1 max P.1 mmHg Ao max P.5 mmHg LV V1 VTI: 20.4 cm Ao mean P.7 mmHg MELONY(I,D): 2.5 cm2 Ao V2 VTI: 28.0 cm MELONY(V,D): 2.6 cm2 sev ratio: 0.73 MLEONY indexed to BSA (cm^2/m^2): 0.97 MV E max john: 105.6 cm/sec PA V2 max: 87.5 cm/sec MV A max john: 85.3 cm/sec PA V2 mean: 61.9 cm/sec MV E/A: 1.2 PA mean P.7 mmHg Med Peak E' John: 9.9 cm/sec PA pr(Accel): 57.2 mmHg E/E' med: 10.6 Lat Peak E' John: 9.1 cm/sec E/E' lat: 11.6 E/e' average: 11.1 MV dec time: 0.20 sec [facility] 70.0 ml Reading Physician:02:51 PM
[2019-10-16] MEDS: ACETAMINOPHEN 325 MG TABLET 650 MG PO (11:20)
--- NOTE | 2019-10-16 13:29 | CM.DANOTE ---
Patient is a 29 year old female who was admitted on 10/15/19 for possible CVA. Pt has [facility] for insurance and her PCP is not listed. EMR was reviewed. Per MD, pt with morbid obesity and to have MRI/Echo/CAT scan to r/o CVA. PT/OT ordered and pending. SW met bedside with pt and explained role and she had just come back from MRI and they could not complete as pt's size did not allow for her to fit in the machine. Pt was very tearful and stating she was feeling worry and concern about what medical complications she might have and feeling very alone. Spouse had recently left to go back to [facility] where they live with their two children ages 8 and 13 yrs? Pt has a supportive sister in [place] who can come later to be with the pt. SW inquired if pt would like a referral to the Metal Flow Coordinator for additional support and pt declined offer. SW inquired if pt is feeling anxiety and pt denied and inquired if pt is established or has hx of any mental health counseling and pt denied as well and continued to cry. Pt states she is feeling a lot of back pain and states the pain is new and not chronic. SW inquired about her UDS testing positive for meth and amphetamines and pt was vague and states she is unsure why it would be positive and denied use or self medicating. SW encouraged pt to talk with MD about any medications or drug use not listed for best treatment and care. Pt appears to have spotty/patchy hair on top and longer in the back and unable to confirm if due to pt hair pulling or purposeful for another reason? Pt needed to have RN and OPAL MINER come in to help adjust pt and very vague in her answers so further bedside assessment needed later when pt better able to participate. Plan: SW to follow closely after PT/OT eval towards determining if Inpt Rehab vs SNF vs home for d/c planning and for further bedside assessment regarding possible drug use and mental health needs? JOSSELIN Joseph Discharge Planning/Care Management Advanced directive, confirm from FAMILY Start: 10/15/19 22:21 Freq: Q24H Status: Active Protocol: Document 10/15/19 22:21 KMD (Rec: 10/15/19 22:22 KMD [id number]) Advance Directive, confirm on record Time 22:22 Person contacted Patient Copy received No CM Discharge Assessment Start: 10/16/19 13:23 Freq: Status: Active Protocol: Document 10/16/19 13:23 BF (Rec: 10/16/19 13:28 BF [id number]) Discharge Planning Assessment Assigned Welder Assembler JOSSELIN Winkler Advance Directives? No Advance Directives on File No History Provided By Patient,Medical Record Has Patient been admitted in last 30 No days? Prior Living Arrangements House Household Members spouse,children Type of transporation used prior to Relies on Others admit Independent with ADL's Yes Is patient alert and oriented? Yes Caregiver for Another Yes: children ages around 8 and 13? Comment Pending MRI/CAT scan/Echo to determine rehab needs Barriers to Discharge Yes Discharge Plan Inpatient Rehab Unit Community Services Physical Therapy Transportation Arrangement to be determined based on d/c needs. Spouse lives on [id number] and sister lives in [place] Additional Comment Pending PT/OT and imaging to determine d/c needs Review Status In Process Please Provide Date Initial DC 10/16/19 Assessment Was Performed Next Review Type Continued Stay Review
--- NOTE | 2019-10-16 14:30 | OT.IP.EVAL ---
Current Diagnoses Cerebral infarction, unspecified (10/15/19) Past Medical History (Last Updated 10/15/19 @ 23:08 by ELMER Schumacher) Hypertension (Acute) Tobacco dependence (Acute) Surgical History (Last Reviewed 10/15/19 @ 17:56 by Gregory Sharp MD) No history of previous surgery (Acute) Occupational Therapy Inpatient Evaluation/Re-Eval M1 PT/OT-IP Prior Functional Status Start: 10/16/19 09:46 Freq: NEEDED Status: Active Protocol: Document 10/16/19 14:35 CGR (Rec: 10/16/19 15:07 CGR [email or web address]) Medical Review Prior Functional Status Medical History Reviewed Yes Communication Pt is an effective verbal communicator. Mobility and Gait Pt was IND in all functional mobility Activities of Daily Living and IADL's Pt was IND in all ADLs Social History Household Members spouse,children Living Arrangements House Number of Floors (Floors) Two Floors Number of Stairs To Enter/Railing? no steps to enter to lower level. 7 steps then 8 with landing and railing on L assending to get to second floor. Home Environment Standard Height Toilet,Walk in Shower,Tub/Shower Home Equipment Grab Bars In Shower Employment Status Unknown Additional Social History Comment Pt lives in a 2 story home with her mother, 8 year old sister, pt's and pt's 2 children ages 8 & 13. Pt states that her husbands mother may also be moving in. There is a bedroom on the lower level if she was unable to do stairs. M2 OT-IP Current Condition Start: 10/16/19 14:35 Freq: Status: Active Protocol: Document 10/16/19 14:35 CGR (Rec: 10/16/19 15:07 CGR [email or web address]) Occupational Therapy Current Condition Current Condition Evaluation Date 10/16/19 Treatment Diagnosis R sided weakness Diagnosis Onset Date 10/15/19 M3 OT- IP Subjective and Pain Start: 10/16/19 14:35 Freq: Status: Active Protocol: Document 10/16/19 14:35 CGR (Rec: 10/16/19 15:07 CGR [email or web address]) OT- Subjective Occupational Therapy Visit Type Type Initial Evaluation Visit Start Time 13:24 Visit Stop Time 14:30 Total Visit Minutes 37 Notes coeval with P.T. split visit from [id number] then [id number]. OT Pain Assessment Pain When Pain Assessed At Rest Pain Present Pain Present Denied Pain M4 OT- IP ADL's Start: 10/16/19 14:35 Freq: Status: Active Protocol: Document 10/16/19 14:35 CGR (Rec: 10/16/19 15:07 CGR [email or web address]) OT [id number] Comments OT Self-Feeding Comments Not performed during session. OT ADL-Grooming General Evaluation Grooming Ability Standby Assistance Areas Needing Assistance Face Washing Comments OT Grooming Comments set up needed for face washing . OT ADL-Oral Care Comments Oral Care Comments pt declined OT ADL-Dressing General Eval Lower Body Dressing Ability Total Assistance Areas Needing Assistance Socks Comments OT Dressing Comments seated EOB OT ADL-Toileting Comments OT Toileting Comments Not performed OT ADL-Bathing Comments OT Bathing Comments Not performed M5 OT- IP IADL's Start: 10/16/19 14:35 Freq: Status: Active Protocol: Document 10/16/19 14:35 CGR (Rec: 10/16/19 15:07 CGR [email or web address]) OT-Instrumental Activities of Daily Living Deficits IADL Deficits Identified Deficits Home Safety Awareness Awareness of Need for Assistance at Home Good Awareness Ability to Problem Solve Emergency Able to Problem Solve Situations Medication Management Medication Management No Deficits Identified Money Management Money Management No Deficits Identified Meal Preparation Meal Preparation Caregiver Provides Assist Traffic Operations Manager Traffic Operations Manager Caregiver Provides Assist Driving Driving Comments 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 M6 OT- IP Functional Cognition Start: 10/16/19 14:35 Freq: Status: Active Protocol: Document 10/16/19 14:35 CGR (Rec: 10/16/19 15:07 CGR [email or web address]) Cognitive Factors Limiting Selfcare Function Cognitive Ability Level of Alertness Alert Patient Orientation Name,Age,Birthday,Month,Date, Year,Day of Week,Place, Situation Attention Span Ability Capable of Focused Attention, Capable of Sustained Attention Ability to Follow Commands Able to Follow Multi-Step Commands Memory Description No Deficits Noted Safety Awareness No Deficits Noted Problem Solving Ability No deficits Noted OT- Vision and Hearing OT- Hearing Assessment OT- Hearing Assessment WFL OT- Vision Assessment Visual Acuity WFL Visual Attentiveness WFL Visual Convergence Impaired Visual Mendoza WFL Diplopia Absent Visual Spacial Neglect Not Applicable Vision Assessment Comments Pt displayed what appeared to be predictive (and inconsistent) occular pursuits vs typical smooth persuits with both vertical and horizontal movement. M7 OT- IP Mobility and Balance Start: 10/16/19 14:35 Freq: Status: Active Protocol: Document 10/16/19 14:35 CGR (Rec: 10/16/19 15:07 CGR [email or web address]) OT- Bed Mobility Assessment Supine to Sit Supine to Sit Assist Standby Assistance,Bedrails Scooting Scooting to Edge of Bed Standby Assistance OT-Transfer Assessment Sit to and From Stand Sit to and from Stand Moderate Assistance,2 Person Assistance Transfers Transfer Ability Moderate Assistance,2 Person Assistance Technique Transfer Destination Bed,Chair Transfer Technique Stand Step Pivot Devices Transfer Assistive Devices Gait Belt Comments Mobility Comments Pt was able to take minimal steps to the chair with 2 person assist and gait belt. Pt demonstrates ability to hold weight through her right leg with mobility but is poorly coordinated with movements of the R leg. OT- Gait Assessment Comments Gait Ability Comments did not occur OT- Balance Assessment Sitting Balance and Reactions Static Sitting Balance Ability Normal Standing Balance and Reactions Static Standing Balance Ability Poor M8 OT- IP Objective Assessments Start: 10/16/19 14:35 Freq: Status: Active Protocol: Document 10/16/19 14:35 CGR (Rec: 10/16/19 15:07 CGR [email or web address]) OT Gross Range of Motion Upper Extremity Range of Motion Assessment Within Functional Limits OT Strength Upper Extremity Strength Assessment Right Impaired Comments Strength Comments RUE demonstrates grossly 3-/5 throughout except R hand which demonstrates 3+/5 with effort . LUE is a very strong 5/5 OT- Coordination Assessment Upper Extremity Finger to Nose Test Right UE Impaired Finger Tapping Test Right UE Impaired OT Sensation Assessment Comments Summary Comments Pt describes increased numbness with distal patern stopping on the neck. Numbness does not effect her face at this time. Edema Edema Absent M9 OT- IP Assessment and Plan Start: 10/16/19 14:35 Freq: Status: Active Protocol: Document 10/16/19 14:35 CGR (Rec: 10/16/19 15:07 CGR [email or web address]) OT Summary Assessment and Plan Potential Rehabilitation Potential Good Analytic Complexity at Evaluation High Summary OT Impairments Strength,Balance,Coordination, Sensation,Functional Mobility, Self-Feeding,Grooming,Dressing ,Toileting,Bathing,Toilet Transfers,Shower Transfers, Activity Tolerance Assessment Summary Pt presents as a high complexity evalution s/p admission with R sided weakness. Pt demonstrates impaired vision, strength, balacne, coordination, and sensation. Pt will benefit from Rehab upon discharge as she has good potential for recovery with adequate therapy . Pt agreeable to activity on this date but demonstrates upset with realization of her limitation. Pt will continue to benefit from OT services. Goals Self-Feeding Goal Independent Grooming Goal Independent Dressing Goal Independent Toileting Goal Independent Bathing Goal Independent Toilet Transfer Goal Independent Shower Transfer Goal Independent Days to Meet Goals 20 Frequency of Treatment Frequency Of Treatment Once a Day Treatment Plan OT Treatment Plan ADL Training,Functional Mobility,Neuromuscular Re- education,Therapeutic Exercises,Vision Retraining, Patient/Family Education, Discharge Planning Other Treatment Recommendations and Next RUE rehab. Shower if able. Treatment Focus Discharge Recommendations OT Discharge Recommendations Acute Rehab Home Equipment Needs TBD Transportation Needs at Discharge Wheelchair/Cabulance
--- NOTE | 2019-10-16 15:47 | PT.IIE ---
Current Diagnoses Cerebral infarction, unspecified (10/15/19) Surgical History (Last Reviewed 10/15/19 @ 17:56 by Gregory Sharp MD) No history of previous surgery (Acute) Medical History (Last Updated 10/15/19 @ 23:08 by ELMER Schumacher) Hypertension (Acute) Tobacco dependence (Acute) Physical Therapy Inpatient Evaluation/Re-Eval M1 PT/OT-IP Prior Functional Status Start: 10/16/19 09:46 Freq: NEEDED Status: Active Protocol: Document 10/16/19 15:12 AW (Rec: 10/16/19 15:47 AW [id number]) Medical Review Prior Functional Status Medical History Reviewed Yes Communication Pt is an effective verbal communicator. Mobility and Gait Pt was IND in all functional mobility Activities of Daily Living and IADL's Pt was IND in all ADLs Social History Household Members spouse,children Living Arrangements House Number of Floors (Floors) Two Floors Number of Stairs To Enter/Railing? no steps to enter to lower level. 7 steps then 8 with landing and railing on L assending to get to second floor. Home Environment Standard Height Toilet,Walk in Shower,Tub/Shower Home Equipment Grab Bars In Shower Employment Status Unknown Additional Social History Comment Pt lives in a 2 story home with her mother, 8 year old sister, pt's and pt's 2 children ages 8 & 13. Pt states that her husbands mother may also be moving in. There is a bedroom on the lower level if she was unable to do stairs. M2 PT-IP Current Condition Start: 10/16/19 09:46 Freq: NEEDED Status: Active Protocol: Document 10/16/19 15:12 AW (Rec: 10/16/19 15:47 AW [id number]) Physical Therapy Current Condition Current Condition Evaluation Date 10/16/19 Treatment Diagnosis R hemiparesis; difficulty in walking Onset Date 10/15/19 M3 PT-IP Subjective Start: 10/16/19 09:46 Freq: NEEDED Status: Active Protocol: Document 10/16/19 15:12 AW (Rec: 10/16/19 15:47 AW [id number]) Subjective Physical Therapy Visit Type Type Initial Evaluation Visit Start Time 13:24 Visit Stop Time 14:30 Total Visit Minutes 37 Notes Co-eval with OT. Split visit [id number] and [id number] to accommodate pt phone call. Physical Therapy Visit Comments Patient Comments Pt is tearful and tired but willing to work with PT Patient Goals To improve strength and be able to take care of herself Therapy Pain Assessment Pain When Pain Assessed At Rest Pain Present Pain Present Denied Pain M4 PT-IP Mobility and Gait Start: 10/16/19 09:46 Freq: NEEDED Status: Active Protocol: Document 10/16/19 15:12 AW (Rec: 10/16/19 15:47 AW [id number]) PT-Bed Mobility Assessment Supine to Sit Supine to Sit Standby Assistance,Bedrails Scooting Scooting to Edge of Bed Standby Assistance PT-Transfer Assessment Sit to and From Stand Sit to and from Stand Moderate Assistance,2 Person Assistance Equipment Transfer Assistive Device Gait Belt Transfers Transfer Destination Chair Transfer Technique Stand Step Pivot Transfer Ability Level of Assist Moderate Assistance,2 Person Assistance Comments Mobility Comments Pt was lying in bed when PT and OT arrived. She had transferred to a [facility] earlier in the day via slide board but had not otherwise transferred since admission. She was able to move her legs toward the left side of the bed and complete supine to sit with heavy use of the left bed rail to push up to sitting . She did not lean in sitting and was able to scoot to EOB SBA. She sat for assessment and then completed sit to stand with mod A x 2. In standing, weight was biased to the left side. Pt was encouraged to attempt to distribute her weight. She had difficulty shifting to the right side but no knee buckling was observed. Shifting her weight to the left, she was able to minimally lift her right foot until just her toes were on the ground. Min assist x 1 for standing balance was provided by OT as PT prepared the chair for transfer. With mod A x 2, pt was able pivot transfer to the chair with near full weightbearing on the right side. Movement of the RLE was poorly coordinated. In sitting, pt was able to use her left leg to move her right leg into position. She was able to scoot herself back in the chair and was positioned there with call light and lunch tray within reach. Gait Assessment Comments Gait Comments Pt unable. Transfer only. See moblility comments. Stair Climbing Assessment Comments Stair Climbing Comments Not assessed. PT-Balance Assessment Sitting Balance and Reactions Static Sitting Balance Ability Normal Dynamic Sitting Balance Ability Good Standing Balance and Reactions Static Standing Balance Ability Poor Dynamic Standing Balance Ability Poor Device Used no AD M5 PT-IP Objective Assessments Start: 10/16/19 09:46 Freq: NEEDED Status: Active Protocol: Document 10/16/19 15:12 AW (Rec: 10/16/19 15:47 AW [id number]) Orientation Orientation/Cognition Level of Alertness Alert Orientation Name,Day of Week,Place, Situation Language Function Ability Expressive Aphasia Safety Awareness Decreased Safety Awareness Memory Description No Deficits Noted Comments Pt was alert and oriented. Speech was intelligible and speech content was appropriate . Gross Range of Motion Upper Extremity ROM Assessment Within Functional Limits Lower Extremity ROM Assessment Within Functional Limits Strength Upper Extremity Strength Assessment Right Impaired Lower Extremity Strength Assessment Right Impaired Hip 3-/5 Knee 3-/5 Ankle 3-/5 Comments Strength Comments LLE grossly 5/5 Coordination Assessment Gross Coordination Gross Coordination Impaired Assessment Finger to Nose Test Activity Impossible Foot Tapping Test Activity Impossible Sensation Assessment Sensation Gross Sensation Right UE Impaired,Left UE Impaired,Right LE Impaired, Left LE Impaired Light Touch Impaired Proprioception (Position) Impaired Sensation Description Numbness Comments Sensation Comments Pt describes dull light touch sensation in BLE with distal more affected than proximal. Muscle Tone Muscle Tone WNL No Muscle Tone Location Bilateral Lower Extremity Type of Tone Hypotonicity Other Assessments Other Other Assessments On vision testing, haider appear intact. Pt does exhibit poor tracking on smooth pursuits - especially horizontally - and impaired saccades. Facial symmetry is normal and tongue does not deviate. M6 PT-IP Treatment Start: 10/16/19 09:46 Freq: NEEDED Status: Active Protocol: Document 10/16/19 15:12 AW (Rec: 10/16/19 15:47 AW [id number]) Physical Therapy Treatment Education Education Provided Safety Other Treatments Other Treatment Performed Provided education on role of PT, plan of care, importance of high repetitions for rehab potential, and the need to force movement of her RUE and RLE as much as possible. M7 PT-IP Assessment and Plan Start: 10/16/19 09:46 Freq: NEEDED Status: Active Protocol: Document 10/16/19 15:12 AW (Rec: 10/16/19 15:47 AW [id number]) PT Summary Assessment and Plan Potential Rehabilitation Potential Fair Status of Condition at Evaluation Evolving Summary Impairments Strength,Balance,Coordination, Sensation,Tone,Bed Mobility, Transfers,Gait,Activity Tolerance Assessment Summary Adela is a 29 yo woman seen for PT evaluation after being admitted with right-sided weakness and numbness. She is independent at baseline and lives with family on [facility]. MRI has been ordered but not completed since MRI will not accommodate pt's habitus. CT and CTA were negative for acute process. On evaluation, pt presents with right hemiparesis, right-sided sensation impairment, balance impairment, coordination, and visual tracking difficulty. Pt was tearful at evaluation with realization of profound weakness but is willing to work hard with therapy. Pt will benefit from continued rehab at discharge to maximize functional independence prior to return home. Goals Bed Mobility Goal Independent Transfer Goal Contact Guard Assistance Gait Goal Contact Guard Assistance Gait Distance 50 Other Goals - stairs goal to be added if pt going home and needing to access second floor Days to Meet Goals 20 Frequency of Treatment Frequency Of Treatment Twice a Day Treatment Plan Physical Therapy Treatment Plan Bed Mobility Training,Transfer Training,Gait Training, Therapeutic Exercise,Balance Retraining,Discharge Planning, Neuromuscular Re-ed, Coordination Retraining Other Recommendations and Next Treatment sit to stand, standing Focus tolerance, transfers, gait with 2PA and chair follow Recommendations To Nursing Amount of Assist Needed 2 Person Assist Discharge Recommendations PT Discharge Recommendations Acute Rehab Equipment Needed for Home Before defer to rehab setting Discharge Transportation Needs at Discharge Wheelchair/Cabulance
--- NOTE | 2019-10-16 15:59 | PM.PN.1 ---
Subjective Subjective Date Patient Seen: 10/16/19 Interval history: Mehreen Perez is a 29-year-old morbidly obese female resident of [facility] with a past medical history significant for untreated hypertension, tobacco dependence, morbid obesity, methamphetamine use and copper IUD who presented to the emergency department with right-sided hemiparesis. The patient is resting in bed comfortably. She continues to have right-sided hemiparesis with mild improvement with ability to move right upper extremity more than left lower extremity. She denies headache, shortness of breath, chest pain, abdominal pain, nausea, vomiting, fever, chills, dysuria, diarrhea or constipation. She is voiding and eliminating without difficulty. Discussed stroke risk factors including untreated hypertension, tobacco dependence, morbid obesity, methamphetamine use, and now new diabetes in detail. Exam Vital Signs (past 8 hours): - 10/16/19 13:47 10/16/19 16:34 10/16/19 16:58 Temperature 98.8 F 97 F L Pulse Rate 93 H 98 H Respiratory Rate 17 17 Blood Pressure 145/102 H 162/105 H Pulse Oximetry 95 95 96 10/16/19 20:07 Temperature 98.5 F Pulse Rate 86 Respiratory Rate 20 Blood Pressure 169/104 H Pulse Oximetry 95 Oxygen Delivery Method Room Air Oxygen Flow Rate 0 Narrative Exam Narrative: General: Young female lying in bed and in no acute distress, somnolent, flushed, possibly withdrawing from methamphetamines HEENT: Normocephalic, atraumatic. External ears without defect. Pupils equal, round, and reactive to light and accommodation. Anicteric sclerae, moist conjunctivae, and no lid lag. Oropharynx free of erythema and cobble stoning with moist mucosa. Neck: Supple with full range of motion. No jugular venous distension. No lymphadenopathy or thyromegaly. Cardiovascular: Regular rate and rhythm without murmurs, rubs, or gallops appreciated. Pulmonary: Clear to auscultation bilaterally without crackles, wheezes, or rhonchi. Normal respiratory effort with no use of accessory muscles. Abdomen: Soft, obese, bowel sounds present, nontender, nondistended. No hepatosplenomegaly or masses appreciated. Extremities: No clubbing, cyanosis, or edema. Skin: Normal temperature, turgor, and texture; no rash, ulcers, or subcutaneous nodules appreciated. Neurological: Right-sided hemiparesis with mild improvement with ability to move right upper extremity more than left lower extremity. Cerebellar function not intact with [id number] and [id number] on right. No facial droop. No slurred speech. Psychiatric: Normal mood and affect. Alert and oriented to person, place, and time. Objective Labs Result Diagrams: 10/16/19 05:52 10/16/19 05:52 Labs: Laboratory Results - last 24 hr 10/16/19 10/16/19 10/16/19 05:52 05:52 05:52 WBC 7.8 RBC 5.92 H Hgb 18.2 H Hct 54.0 H MCV 91.2 MCH 30.8 MCHC 33.8 RDW 14.7 Plt Count 189 Neut % (Auto) 43.8 L Lymph % (Auto) 46.6 H Emery % (Auto) 8.0 Eos % (Auto) 1.0 L Baso % (Auto) 0.6 Neut # (Auto) 3400 Lymph # (Auto) 3600 Emery # (Auto) 600 Eos # (Auto) 100 Baso # (Auto) 0 Sodium 137 Potassium 3.6 Chloride 109 H Carbon Dioxide 22 BUN 13 Creatinine 0.64 Estimated GFR > 60.0 BUN/Creatinine Ratio 20.3 Glucose 118 H Hemoglobin A1c 7.0 H Calcium 8.5 Magnesium 2.0 Total Bilirubin 0.7 AST 32 ALT 37 H Alkaline Phosphatase 66 Total Protein 6.8 Albumin 3.5 Globulin 3.3 Albumin/Globulin Ratio 1.1 Triglycerides Cholesterol LDL Cholesterol, Calc HDL Cholesterol U Opiates 300ng/mL cut Ur Oxycodone Screen Urine Methadone Screen Ur Barbiturates Screen U Tricyclic Antidepress Ur Phencyclidine Scrn Ur Amphetamines Screen U Methamphetamines Scrn Ur MDMA Scrn (Ecstasy) U Benzodiazepines Scrn Urine Cocaine Screen U Marijuana (THC) Screen 10/16/19 10/16/19 05:52 08:00 WBC RBC Hgb Hct MCV MCH MCHC RDW Plt Count Neut % (Auto) Lymph % (Auto) Emery % (Auto) Eos % (Auto) Baso % (Auto) Neut # (Auto) Lymph # (Auto) Emery # (Auto) Eos # (Auto) Baso # (Auto) Sodium Potassium Chloride Carbon Dioxide BUN Creatinine Estimated GFR BUN/Creatinine Ratio Glucose Hemoglobin A1c Calcium Magnesium Total Bilirubin AST ALT Alkaline Phosphatase Total Protein Albumin Globulin Albumin/Globulin Ratio Triglycerides 209 H Cholesterol 166 LDL Cholesterol, Calc 99 HDL Cholesterol 25 L U Opiates 300ng/mL cut Negative Ur Oxycodone Screen Negative Urine Methadone Screen Negative Ur Barbiturates Screen Negative U Tricyclic Antidepress Negative Ur Phencyclidine Scrn Negative Ur Amphetamines Screen Positive H U Methamphetamines Scrn Positive H Ur MDMA Scrn (Ecstasy) Negative U Benzodiazepines Scrn Negative Urine Cocaine Screen Negative U Marijuana (THC) Screen Negative Assessment & Plan Assessment & Plan narrative: Mehreen Perez is a 29-year-old morbidly obese female resident of [facility] with a past medical history significant for untreated hypertension, tobacco dependence, morbid obesity, methamphetamine use and copper IUD who presented to the emergency department with right-sided hemiparesis. 1. 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 Active. -Patient presented with right-sided hemiparesis. -NIH score 5.Continue to monitor neurological status closely. -CT of the brain and CTA of the head and neck were negative for acute intracranial process -MR stroke protocol not performed due to body habitus. Consider repeat CTA head and neck in 48 hours. -EKG demonstrated SR without acute ischemic changes. Continue to monitor closely on telemetry. -Allow for permissive hypertension for 24 hours for cerebral perfusion. Plan to start antihypertensive after if indicated. -Ordered echocardiogram to assess heart structure, function and embolic source, pending. -Rsk stratify with fasting lipid panel which demonstrated fair lipid control and hemoglobin A1C at 7.0%V indicative of diabetes. -Continue aspirin 81 mg daily, plavix 75 mg daily for 3 weeks, and atorvastatin 40 mg daily at bedtime for stroke prophylaxis. -Continue physical and occupational therapy evaluation and treatment. 2. Newly diagnosed diabetes mellitus type 2, chronic, present on admission. Stable. -Hemoglobin A1c 7.0 indicative of diabetes and counseled the patient extensively on diabetes. -Continue ACHS blood glucose checks and low-dose correctional scale insulin. -Continue heart healthy/carbohydrate consistent diet 3. Untreated hypertension, chronic, present on admission. Stable. -Allow for permissive hypertension x 24 hours. Plan to start antihypertensive after if indicated. Continue monitoring BP closely. -Recommend indefinite cessation of smoking and methamphetamine use as this contributes to hypertension. 4. Tobacco dependence, chronic, present on admission. Stable. -Counseled patient on smoking cessation as this represents significant risk factor for CVA. 5. Morbid obesity, chronic, present on admission. Stable. -BMI 53.2. -Counseled patient on lifestyle modification including diet and exercise. -Consulted petroleum refining equipment operator and we appreciate her recommendations. 6. Methamphetamine use, chronic, present on admission. Stable. -Patient reports intermittent special occasion use with prior regular use. Last use several weeks ago. -Counseled patient on indefinite cessation of methamphetamine use as this represents significant risk factor for CVA. Code Status: Full code as discussed with patient VTE prophylaxis: Bilateral SCDs Disposition: Patient likely to discharge in 1-2 days possibly to inpatient stroke rehabilitation. Quality VTE Deep Vein Thrombosis/Pulmonary Embolism Present on Admission: No
--- NOTE | 2019-10-16 16:36 | PC.NURSE ---
Addendum entered by Earnestine Holt R.N. 10/16/19 22:40: Pt appears asleep most evening. Tele NSR per ICU staff. CBG @ 105. Using bedpan to void. Call light w/in reach, bed alarm on for pt safety. Continue w/plan of care. Original Note: Pt resting at this time & wanting to be left alone. SpO2 96% RA Refusing SCD's. HL left hand intact/patent. Tele in place. Call light w/in reach, bed alrm on for pt safety.
[2019-10-16] MEDS: ATORVASTATIN 20 MG TABLET 40 MG PO (21:03)
[2019-10-16] MEDS: SODIUM CHLORIDE 0.9% 1,000 ML 100 ML IV (21:04)
[2019-10-17] VITALS (9 sets, daily range): BP systolic 137–184; BP diastolic 81–103; PULSE 69–75; RESP 16–20; TEMP 35.9–36.9; O2SAT 94–98
--- NOTE | 2019-10-17 04:09 | PC.NURSE ---
Patient seen and assessed. Is alert and oriented except to day of month. NIH is 6 for weakness/numbness and ataxia of right extremities. Breath sounds CTA with RA sat of 94%. HRR and telemetry was SR. Denies nausea. BT are hypoactive and passing flatus. Voiding per bedpan; denies dysuria, frequency or urgency. Is able to turn herself. Gait not assessed as not out of bed this shift. Wearing bilateral calf SCD's. Denies pain. Fall risk score is high and bed alarm is activated.
[2019-10-17 06:42] LABS: Alanine Aminotransferase 38 IU/L (<35); Albumin 3.6 g/dL (3.5-5.0); Albumin Globulin Ratio 1.1 (1.0-2.8); Alkaline Phosphatase 64 U/L (38-126); Aspartate Aminotransferase 32 IU/L (14-36); BUN Creatinine Ratio 20.6 (6-22); Bilirubin Total 0.6 mg/dL (0.2-1.3); Blood Urea Nitrogen 13 mg/dL (7-17); Calcium 8.6 mg/dL (8.4-10.2); Carbon Dioxide 22 mmol/L (22-32); Chloride 110 mmol/L (98-107); Estimated Glomerular Filt Rate > 60.0 mL/min (>60); Globulin 3.3 g/dL (1.7-4.1); Glucose 121 mg/dL (70-100); HEMOLYSIS < 15 (0-50); Magnesium 2.1 mg/dL (1.6-2.3); Potassium 3.9 mmol/L (3.4-5.1); Sodium 138 mmol/L (137-145); Total Protein 6.9 g/dL (6.3-8.2)
[2019-10-17 06:49] LABS: Add Manual Diff / Slide Review NO; Basophils Absolute Auto 0 /uL (0-100); Basophils Percent Auto 0.3 % (0-2); Eosinophils Absolute Auto 100 /uL (0-450); Eosinophils Percent Auto 0.9 % (2-4); Hematocrit 52.7 % (36-46); Hemoglobin 17.7 g/dL (12.0-16.0); Lymphocytes Absolute Auto 3500 /uL (1100-4500); Lymphocytes Percent Auto 44.7 % (25-40); Mean Corpuscular HGB Conc 33.6 % (30-36); Mean Corpuscular Hemoglobin 30.7 PG (26-34); Mean Corpuscular Volume 91.3 fL (80-100); Monocytes Absolute Auto 700 /uL (0-900); Monocytes Percent Auto 9.4 % (3-14); Neutrophils Absolute Auto 3500 /uL (1500-7000); Neutrophils Percent Auto 44.7 % (50-75); Platelet Count 191 X10^3/uL (150-400); Red Blood Cell Count 5.77 X10^6/uL (4.0-5.2); Red Cell Distribution Width 14.6 % (11.6-14.8); White Blood Cell Count 7.8 X10^3/uL (4.5-11.0)
[2019-10-17] MEDS: SODIUM CHLORIDE 0.9% 1,000 ML 100 ML IV (06:56)
[2019-10-17] MEDS: CLOPIDOGREL 75 MG TABLET PO (08:34)
[2019-10-17] MEDS: ASPIRIN EC 81 MG TABLET PO (08:34)
[2019-10-17] MEDS: FISH OIL 1,000 MG CAPSULE 1000 MG PO (08:35)
[2019-10-17] MEDS: ACETAMINOPHEN 325 MG TABLET 650 MG PO (08:35)
--- NOTE | 2019-10-17 10:29 | PT.IPTN ---
Current Diagnoses Cerebral infarction, unspecified (10/15/19) Physical Therapy Treatment Note M2 PT-IP Current Condition Start: 10/16/19 09:46 Freq: NEEDED Status: Active Protocol: Document 10/16/19 15:12 AW (Rec: 10/16/19 15:47 AW [id number]) Physical Therapy Current Condition Current Condition Evaluation Date 10/16/19 Treatment Diagnosis R hemiparesis; difficulty in walking Onset Date 10/15/19 M3 PT-IP Subjective Start: 10/16/19 09:46 Freq: NEEDED Status: Active Protocol: Document 10/17/19 10:29 AB (Rec: 10/17/19 11:21 AB [email or web address]) Subjective Physical Therapy Visit Type Type Treatment Note Visit Start Time 10:29 Visit Stop Time 10:59 Total Visit Minutes 30 Number of PLATINUM AND PALLADIUM KETTLE TENDER Visits 0 Physical Therapy Visit Comments Patient Comments pt initially sleepy but woke up and agreed to get up. pt is weepy and has been calling familyon her phone during tx session. M4 PT-IP Mobility and Gait Start: 10/16/19 09:46 Freq: NEEDED Status: Active Protocol: Document 10/17/19 10:29 AB (Rec: 10/17/19 11:21 AB [email or web address]) PT-Bed Mobility Assessment Supine to Sit Supine to Sit Moderate Assistance,Head of Bed Elevated,Bedrails PT-Transfer Assessment Sit to and From Stand Sit to and from Stand Moderate Assistance,Maximum Assistance,1 Person Assistance ,2 Person Assistance,Use of Upper Extremities Equipment Transfer Assistive Device Gait Belt,Front Wheeled Walker Orthotic/Prosthetic Devices or Brace: No Transfers Transfer Destination Chair Transfer Technique Stand Step Pivot Transfer Ability Level of Assist Maximum Assistance,2 Person Assistance,Use of Upper Extremities Comments Mobility Comments completed supine to sit mod A and max cues. pt was able to sit on EOB SBA to CGA. completed sit to stand mod to max A x 2 and max cues. step transfer using FWW max A x 2 and max cues. pt with RLE weakness and hyperextends/lock R knee during weight bearing but still artemio during transfers. also has decrease trunk control affecting standing balance and mobiltiy. completed RLE exercises sitting on chair. positioned pt on chair. call light and table placed within reach. Gait Assessment Comments Gait Comments unable at this time M5 PT-IP Objective Assessments Start: 10/16/19 09:46 Freq: NEEDED Status: Active Protocol: Document 10/16/19 15:12 AW (Rec: 10/16/19 15:47 AW [id number]) Orientation Orientation/Cognition Level of Alertness Alert Orientation Name,Day of Week,Place, Situation Language Function Ability Expressive Aphasia Safety Awareness Decreased Safety Awareness Memory Description No Deficits Noted Comments Pt was alert and oriented. Speech was intelligible and speech content was appropriate . Gross Range of Motion Upper Extremity ROM Assessment Within Functional Limits Lower Extremity ROM Assessment Within Functional Limits Strength Upper Extremity Strength Assessment Right Impaired Lower Extremity Strength Assessment Right Impaired Hip 3-/5 Knee 3-/5 Ankle 3-/5 Comments Strength Comments LLE grossly 5/5 Coordination Assessment Gross Coordination Gross Coordination Impaired Assessment Finger to Nose Test Activity Impossible Foot Tapping Test Activity Impossible Sensation Assessment Sensation Gross Sensation Right UE Impaired,Left UE Impaired,Right LE Impaired, Left LE Impaired Light Touch Impaired Proprioception (Position) Impaired Sensation Description Numbness Comments Sensation Comments Pt describes dull light touch sensation in BLE with distal more affected than proximal. Muscle Tone Muscle Tone WNL No Muscle Tone Location Bilateral Lower Extremity Type of Tone Hypotonicity Other Assessments Other Other Assessments On vision testing, haider appear intact. Pt does exhibit poor tracking on smooth pursuits - especially horizontally - and impaired saccades. Facial symmetry is normal and tongue does not deviate. M6 PT-IP Treatment Start: 10/16/19 09:46 Freq: NEEDED Status: Active Protocol: Document 10/17/19 10:29 AB (Rec: 10/17/19 11:21 AB [email or web address]) Physical Therapy Treatment Education Education Provided Safety M7 PT-IP Assessment and Plan Start: 10/16/19 09:46 Freq: NEEDED Status: Active Protocol: Document 10/17/19 10:29 AB (Rec: 10/17/19 11:21 AB [email or web address]) PT Summary Assessment and Plan Potential Rehabilitation Potential Fair Summary Impairments ROM,Strength,Balance, Coordination,Sensation,Tone, Cognition,Bed Mobility, Transfers,Gait,Activity Tolerance Progress Towards Goals Slow Progress due to Medical Issues Assessment Summary pt with R sided weakness requiring max A x 2 for transfers. presents with R knee buckling during transfers . Pt will require SNF vs acute rehab to improve strength and mobility. Goals Bed Mobility Goal Standby Assistance Transfer Goal Minimal Assistance Gait Goal Minimal Assistance Gait Distance 25 Days to Meet Goals 10 Frequency of Treatment Frequency Of Treatment Twice a Day Treatment Plan Physical Therapy Treatment Plan Bed Mobility Training,Transfer Training,Gait Training, Therapeutic Exercise,Balance Retraining,Discharge Planning, Neuromuscular Re-ed, Coordination Retraining Other Recommendations and Next Treatment standing balance/tolerance Focus Recommendations To Nursing Amount of Assist Needed 2 Person Assist Discharge Recommendations PT Discharge Recommendations SNF Rehab,Acute Rehab Transportation Needs at Discharge Wheelchair/Cabulance
--- NOTE | 2019-10-17 10:29 | PT.IPTN ---
Current Diagnoses Cerebral infarction, unspecified (10/15/19) Physical Therapy Treatment Note M2 PT-IP Current Condition Start: 10/16/19 09:46 Freq: NEEDED Status: Active Protocol: Document 10/16/19 15:12 AW (Rec: 10/16/19 15:47 AW [id number]) Physical Therapy Current Condition Current Condition Evaluation Date 10/16/19 Treatment Diagnosis R hemiparesis; difficulty in walking Onset Date 10/15/19 M3 PT-IP Subjective Start: 10/16/19 09:46 Freq: NEEDED Status: Active Protocol: Document 10/17/19 10:29 AB (Rec: 10/17/19 11:21 AB [email or web address]) Subjective Physical Therapy Visit Type Type Treatment Note Visit Start Time 10:29 Visit Stop Time 10:59 Total Visit Minutes 30 Number of STOCK HANDLER FLOORPERSON Visits 0 Physical Therapy Visit Comments Patient Comments pt initially sleepy but woke up and agreed to get up. pt is weepy and has been calling familyon her phone during tx session. M4 PT-IP Mobility and Gait Start: 10/16/19 09:46 Freq: NEEDED Status: Active Protocol: Document 10/17/19 10:29 AB (Rec: 10/17/19 11:21 AB [email or web address]) PT-Bed Mobility Assessment Supine to Sit Supine to Sit Moderate Assistance,Head of Bed Elevated,Bedrails PT-Transfer Assessment Sit to and From Stand Sit to and from Stand Moderate Assistance,Maximum Assistance,1 Person Assistance ,2 Person Assistance,Use of Upper Extremities Equipment Transfer Assistive Device Gait Belt,Front Wheeled Walker Orthotic/Prosthetic Devices or Brace: No Transfers Transfer Destination Chair Transfer Technique Stand Step Pivot Transfer Ability Level of Assist Maximum Assistance,2 Person Assistance,Use of Upper Extremities Comments Mobility Comments completed supine to sit mod A and max cues. pt was able to sit on EOB SBA to CGA. completed sit to stand mod to max A x 2 and max cues. step transfer using FWW max A x 2 and max cues. pt with RLE weakness and hyperextends/lock R knee during weight bearing but still artemio during transfers. also has decrease trunk control affecting standing balance and mobiltiy. completed RLE exercises sitting on chair. positioned pt on chair. call light and table placed within reach. Gait Assessment Comments Gait Comments unable at this time M5 PT-IP Objective Assessments Start: 10/16/19 09:46 Freq: NEEDED Status: Active Protocol: Document 10/16/19 15:12 AW (Rec: 10/16/19 15:47 AW [id number]) Orientation Orientation/Cognition Level of Alertness Alert Orientation Name,Day of Week,Place, Situation Language Function Ability Expressive Aphasia Safety Awareness Decreased Safety Awareness Memory Description No Deficits Noted Comments Pt was alert and oriented. Speech was intelligible and speech content was appropriate . Gross Range of Motion Upper Extremity ROM Assessment Within Functional Limits Lower Extremity ROM Assessment Within Functional Limits Strength Upper Extremity Strength Assessment Right Impaired Lower Extremity Strength Assessment Right Impaired Hip 3-/5 Knee 3-/5 Ankle 3-/5 Comments Strength Comments LLE grossly 5/5 Coordination Assessment Gross Coordination Gross Coordination Impaired Assessment Finger to Nose Test Activity Impossible Foot Tapping Test Activity Impossible Sensation Assessment Sensation Gross Sensation Right UE Impaired,Left UE Impaired,Right LE Impaired, Left LE Impaired Light Touch Impaired Proprioception (Position) Impaired Sensation Description Numbness Comments Sensation Comments Pt describes dull light touch sensation in BLE with distal more affected than proximal. Muscle Tone Muscle Tone WNL No Muscle Tone Location Bilateral Lower Extremity Type of Tone Hypotonicity Other Assessments Other Other Assessments On vision testing, haider appear intact. Pt does exhibit poor tracking on smooth pursuits - especially horizontally - and impaired saccades. Facial symmetry is normal and tongue does not deviate. M6 PT-IP Treatment Start: 10/16/19 09:46 Freq: NEEDED Status: Active Protocol: Document 10/17/19 10:29 AB (Rec: 10/17/19 11:21 AB [email or web address]) Physical Therapy Treatment Exercises Exercises Gluteal Sets,Heel Slides, Seated Knee Flexion/Extension Education Education Provided Safety M7 PT-IP Assessment and Plan Start: 10/16/19 09:46 Freq: NEEDED Status: Active Protocol: Document 10/17/19 10:29 AB (Rec: 10/17/19 11:21 AB [email or web address]) PT Summary Assessment and Plan Potential Rehabilitation Potential Fair Summary Impairments ROM,Strength,Balance, Coordination,Sensation,Tone, Cognition,Bed Mobility, Transfers,Gait,Activity Tolerance Progress Towards Goals Slow Progress due to Medical Issues Assessment Summary pt with R sided weakness requiring max A x 2 for transfers. presents with R knee buckling during transfers . Pt will require SNF vs acute rehab to improve strength and mobility. Goals Bed Mobility Goal Standby Assistance Transfer Goal Minimal Assistance Gait Goal Minimal Assistance Gait Distance 25 Days to Meet Goals 10 Frequency of Treatment Frequency Of Treatment Twice a Day Treatment Plan Physical Therapy Treatment Plan Bed Mobility Training,Transfer Training,Gait Training, Therapeutic Exercise,Balance Retraining,Discharge Planning, Neuromuscular Re-ed, Coordination Retraining Other Recommendations and Next Treatment standing balance/tolerance Focus Recommendations To Nursing Amount of Assist Needed 2 Person Assist Discharge Recommendations PT Discharge Recommendations SNF Rehab,Acute Rehab Transportation Needs at Discharge Wheelchair/Cabulance
--- NOTE | 2019-10-17 11:50 | PT.IPTN ---
Addendum entered and electronically signed by Mary Kate Malin PTA 10/18/19 09:11: Mary Kate Malin PTA reesigned SPTA Amarilys Plank's from 10/17/19 pm note secondary to time stamp error with Ivonne Naravez PTA esign yesterday and documentation not pulled into note correctly to view. Original Note: Current Diagnoses Cerebral infarction, unspecified (10/15/19) Physical Therapy Treatment Note M2 PT-IP Current Condition Start: 10/16/19 09:46 Freq: NEEDED Status: Active Protocol: Document 10/17/19 11:50 TP (Rec: 10/17/19 12:37 TP [id number]) Physical Therapy Current Condition Current Condition Evaluation Date 10/16/19 Treatment Diagnosis R hemiparesis; difficulty in walking Onset Date 10/15/19 M3 PT-IP Subjective Start: 10/16/19 09:46 Freq: NEEDED Status: Active Protocol: Document 10/17/19 11:50 TP (Rec: 10/17/19 12:37 TP [id number]) Subjective Physical Therapy Visit Type Type Treatment Note Visit Start Time 11:50 Visit Stop Time 12:02 Total Visit Minutes 12 Notes Student BUSHRA Panda supervised by BUSHRA Coronado. Pt's sister present throughout tx. Number of CREATIVE TECHNOLOGIST Visits 1 Physical Therapy Visit Comments Patient Comments Pt in pain sitting in chair. Wants to return to bed. Patient Goals To improve strength and be able to take care of herself Therapy Pain Assessment Pain When Pain Assessed At Rest Pain Present Pain Present Pain Reported M4 PT-IP Mobility and Gait Start: 10/16/19 09:46 Freq: NEEDED Status: Active Protocol: Document 10/17/19 11:50 TP (Rec: 10/17/19 12:37 TP [id number]) PT-Bed Mobility Assessment Rolling Type of Rolling Log Rolling Sit to Supine Sit to Supine Moderate Assistance,1 Person Assistance Scooting Scooting Up and Down in Bed Minimal Assistance,Moderate Assistance PT-Transfer Assessment Sit to and From Stand Sit to and from Stand Moderate Assistance,Maximum Assistance,2 Person Assistance ,Use of Upper Extremities Equipment Transfer Assistive Device Gait Belt,Front Wheeled Walker Orthotic/Prosthetic Devices or Brace: No Transfers Transfer Destination Bed Transfer Technique Stand Step Pivot Transfer Ability Level of Assist Moderate Assistance,Maximum Assistance,2 Person Assistance ,Use of Upper Extremities Comments Mobility Comments Pt sitting reclined in chair with sister present in room upon arrival. Pt expressed desire to return to bed, noting pain in back from sitting in chair. Stated she is a side sleeper and would like to lay on her side. Gait belt donned for safety. Bed and chair positioned for transfer to L uninvolved side. Sit to stand MaxAx2, with SPTA in front blocking R foot and knee, and CREATIVE TECHNOLOGIST on R involved side assisting R hand hold on FWW, Mod-MaxA x2. Pt stood to weightbear for approx. 10 sec. with Min-ModA x2. Step pivot and sit at EOB , FWW Min-ModA x2. Sit to supine, Min A x1 to assist with BLE. Bridging for lateral shift R with Reema x1 to anchor BLE. Log roll to L, SBA. Pt positioned in L sidelying, pillow support between legs and for RUE. Call light and all other needs within reach. Bed alarm activated for safety. Lunch placed on tray at EOB. Sister present upon exit. Gait Assessment Comments Gait Comments see mobility comments Stair Climbing Assessment Comments Stair Climbing Comments Not assessed PT-Balance Assessment Sitting Balance and Reactions Static Sitting Balance Ability Normal Dynamic Sitting Balance Ability Good Standing Balance and Reactions Static Standing Balance Ability Poor Dynamic Standing Balance Ability Poor Device Used FWW M5 PT-IP Objective Assessments Start: 10/16/19 09:46 Freq: NEEDED Status: Active Protocol: Document 10/16/19 15:12 AW (Rec: 10/16/19 15:47 AW [id number]) Orientation Orientation/Cognition Level of Alertness Alert Orientation Name,Day of Week,Place, Situation Language Function Ability Expressive Aphasia Safety Awareness Decreased Safety Awareness Memory Description No Deficits Noted Comments Pt was alert and oriented. Speech was intelligible and speech content was appropriate . Gross Range of Motion Upper Extremity ROM Assessment Within Functional Limits Lower Extremity ROM Assessment Within Functional Limits Strength Upper Extremity Strength Assessment Right Impaired Lower Extremity Strength Assessment Right Impaired Hip 3-/5 Knee 3-/5 Ankle 3-/5 Comments Strength Comments LLE grossly 5/5 Coordination Assessment Gross Coordination Gross Coordination Impaired Assessment Finger to Nose Test Activity Impossible Foot Tapping Test Activity Impossible Sensation Assessment Sensation Gross Sensation Right UE Impaired,Left UE Impaired,Right LE Impaired, Left LE Impaired Light Touch Impaired Proprioception (Position) Impaired Sensation Description Numbness Comments Sensation Comments Pt describes dull light touch sensation in BLE with distal more affected than proximal. Muscle Tone Muscle Tone WNL No Muscle Tone Location Bilateral Lower Extremity Type of Tone Hypotonicity Other Assessments Other Other Assessments On vision testing, haider appear intact. Pt does exhibit poor tracking on smooth pursuits - especially horizontally - and impaired saccades. Facial symmetry is normal and tongue does not deviate. M6 PT-IP Treatment Start: 10/16/19 09:46 Freq: NEEDED Status: Active Protocol: Document 10/17/19 11:50 TP (Rec: 10/17/19 12:37 TP [id number]) Physical Therapy Treatment Education Education Provided Safety Other Treatments Other Treatment Performed Education for safe use of FWW for transfers. M7 PT-IP Assessment and Plan Start: 10/16/19 09:46 Freq: NEEDED Status: Active Protocol: Document 10/17/19 11:50 TP (Rec: 10/17/19 12:37 TP [id number]) PT Summary Assessment and Plan Potential Rehabilitation Potential Fair Status of Condition at Evaluation Evolving Summary Impairments ROM,Strength,Balance, Coordination,Sensation,Tone, Cognition,Bed Mobility, Transfers,Gait,Activity Tolerance Progress Towards Goals Slow Progress due to Medical Issues Assessment Summary Pt has R sided weakness and pain in back, decreasing mobility. Decrease in LE strength results in slow, uncontrolled eccentric contraction when sitting from a standing position. Pt also uses momentum to move trunk, R UE and R LE during bed mobility. Pt used this technique, and hit her R arm/ hand on bedrail. Denied pain in R UE, and skin intact. Pt education needed for safe bed mobility with hemiparesis. Goals Bed Mobility Goal Standby Assistance Transfer Goal Minimal Assistance Gait Goal Minimal Assistance Gait Distance 25 Days to Meet Goals 10 Frequency of Treatment Frequency Of Treatment Twice a Day Treatment Plan Physical Therapy Treatment Plan Bed Mobility Training,Transfer Training,Gait Training, Therapeutic Exercise,Balance Retraining,Discharge Planning, Neuromuscular Re-ed, Coordination Retraining Other Recommendations and Next Treatment standing balance/tolerance, Focus bed mobility Recommendations To Nursing Amount of Assist Needed 2 Person Assist Discharge Recommendations PT Discharge Recommendations SNF Rehab,Acute Rehab Equipment Needed for Home Before defer to rehab setting Discharge Transportation Needs at Discharge Wheelchair/Cabulance
--- NOTE | 2019-10-17 12:02 | PT.IPTN ---
Note reviewed by Lida Carosn PTA Current Diagnoses Cerebral infarction, unspecified (10/15/19) Physical Therapy Treatment Note M2 PT-IP Current Condition Start: 10/16/19 09:46 Freq: NEEDED Status: Active Protocol: Document 10/16/19 15:12 AW (Rec: 10/16/19 15:47 AW [id number]) Physical Therapy Current Condition Current Condition Evaluation Date 10/16/19 Treatment Diagnosis R hemiparesis; difficulty in walking Onset Date 10/15/19 M3 PT-IP Subjective Start: 10/16/19 09:46 Freq: NEEDED Status: Active Protocol: Document 10/17/19 10:29 AB (Rec: 10/17/19 11:21 AB [id number]) Subjective Physical Therapy Visit Type Type Treatment Note Visit Start Time 10:29 Visit Stop Time 10:59 Total Visit Minutes 30 Number of MANAGER OF PROJECT MANAGEMENT Visits 0 Physical Therapy Visit Comments Patient Comments pt initially sleepy but woke up and agreed to get up. pt is weepy and has been calling familyon her phone during tx session. M4 PT-IP Mobility and Gait Start: 10/16/19 09:46 Freq: NEEDED Status: Active Protocol: Document 10/17/19 10:29 AB (Rec: 10/17/19 11:21 AB [id number]) PT-Bed Mobility Assessment Supine to Sit Supine to Sit Moderate Assistance,Head of Bed Elevated,Bedrails PT-Transfer Assessment Sit to and From Stand Sit to and from Stand Moderate Assistance,Maximum Assistance,1 Person Assistance ,2 Person Assistance,Use of Upper Extremities Equipment Transfer Assistive Device Gait Belt,Front Wheeled Walker Orthotic/Prosthetic Devices or Brace: No Transfers Transfer Destination Chair Transfer Technique Stand Step Pivot Transfer Ability Level of Assist Maximum Assistance,2 Person Assistance,Use of Upper Extremities Comments Mobility Comments completed supine to sit mod A and max cues. pt was able to sit on EOB SBA to CGA. completed sit to stand mod to max A x 2 and max cues. step transfer using FWW max A x 2 and max cues. pt with RLE weakness and hyperextends/lock R knee during weight bearing but still artemio during transfers. also has decrease trunk control affecting standing balance and mobiltiy. completed RLE exercises sitting on chair. positioned pt on chair. call light and table placed within reach. Gait Assessment Comments Gait Comments unable at this time M5 PT-IP Objective Assessments Start: 10/16/19 09:46 Freq: NEEDED Status: Active Protocol: Document 10/16/19 15:12 AW (Rec: 10/16/19 15:47 AW [id number]) Orientation Orientation/Cognition Level of Alertness Alert Orientation Name,Day of Week,Place, Situation Language Function Ability Expressive Aphasia Safety Awareness Decreased Safety Awareness Memory Description No Deficits Noted Comments Pt was alert and oriented. Speech was intelligible and speech content was appropriate . Gross Range of Motion Upper Extremity ROM Assessment Within Functional Limits Lower Extremity ROM Assessment Within Functional Limits Strength Upper Extremity Strength Assessment Right Impaired Lower Extremity Strength Assessment Right Impaired Hip 3-/5 Knee 3-/5 Ankle 3-/5 Comments Strength Comments LLE grossly 5/5 Coordination Assessment Gross Coordination Gross Coordination Impaired Assessment Finger to Nose Test Activity Impossible Foot Tapping Test Activity Impossible Sensation Assessment Sensation Gross Sensation Right UE Impaired,Left UE Impaired,Right LE Impaired, Left LE Impaired Light Touch Impaired Proprioception (Position) Impaired Sensation Description Numbness Comments Sensation Comments Pt describes dull light touch sensation in BLE with distal more affected than proximal. Muscle Tone Muscle Tone WNL No Muscle Tone Location Bilateral Lower Extremity Type of Tone Hypotonicity Other Assessments Other Other Assessments On vision testing, haider appear intact. Pt does exhibit poor tracking on smooth pursuits - especially horizontally - and impaired saccades. Facial symmetry is normal and tongue does not deviate. M6 PT-IP Treatment Start: 10/16/19 09:46 Freq: NEEDED Status: Active Protocol: Document 10/17/19 10:29 AB (Rec: 10/17/19 11:21 AB [id number]) Physical Therapy Treatment Exercises Exercises Gluteal Sets,Heel Slides, Seated Knee Flexion/Extension Education Education Provided Safety M7 PT-IP Assessment and Plan Start: 10/16/19 09:46 Freq: NEEDED Status: Active Protocol: Document 10/17/19 10:29 AB (Rec: 10/17/19 11:21 AB [id number]) PT Summary Assessment and Plan Potential Rehabilitation Potential Fair Summary Impairments ROM,Strength,Balance, Coordination,Sensation,Tone, Cognition,Bed Mobility, Transfers,Gait,Activity Tolerance Progress Towards Goals Slow Progress due to Medical Issues Assessment Summary pt with R sided weakness requiring max A x 2 for transfers. presents with R knee buckling during transfers . Pt will require SNF vs acute rehab to improve strength and mobility. Goals Bed Mobility Goal Standby Assistance Transfer Goal Minimal Assistance Gait Goal Minimal Assistance Gait Distance 25 Days to Meet Goals 10 Frequency of Treatment Frequency Of Treatment Twice a Day Treatment Plan Physical Therapy Treatment Plan Bed Mobility Training,Transfer Training,Gait Training, Therapeutic Exercise,Balance Retraining,Discharge Planning, Neuromuscular Re-ed, Coordination Retraining Other Recommendations and Next Treatment standing balance/tolerance Focus Recommendations To Nursing Amount of Assist Needed 2 Person Assist Discharge Recommendations PT Discharge Recommendations SNF Rehab,Acute Rehab Transportation Needs at Discharge Wheelchair/Cabulance
--- NOTE | 2019-10-17 14:59 | PM.PN.1 ---
Subjective Subjective Date Patient Seen: 10/17/19 Interval history: Patient is a 29-year-old female who was admitted to the hospital for an acute left brain CVA. Patient has morbid obesity in this unable to have an MRI of the brain. CT a of the head neck were negative. She continues to have profound weakness involving the right arm and right leg. Right arm weakness appears to be worse than right leg. She requires a maximum 2 person assist. Patient is unable an unsafe to be discharged home. Will continue to pursue acute rehabilitation post discharge. Patient denies any blurred vision, and denies any history of speech abnormalities. Exam Vital Signs (past 8 hours): - 10/17/19 07:53 10/17/19 08:00 10/17/19 12:00 Temperature 96.7 F L 96.6 F L Pulse Rate 73 69 Respiratory Rate 16 16 Blood Pressure 151/89 H 153/98 H Pulse Oximetry 98 94 94 Oxygen Delivery Method Room Air Oxygen Flow Rate 0 Narrative Exam Narrative: Pleasant obese female lying in bed in no obvious distress Lungs: Clear to auscultation Cardiac exam regular rate and rhythm normal S1-S2 Abdomen: Soft nontender nondistended Extremities: No edema Neuro exam: Cranial nerves 2-12 are intact, strength is weak 3 plus out of 5 in the right lower extremity, 1+ out of 5 in the right upper extremity, patient reports numbness along the right side, reflexes are brisk and equal, gait is not assessed Speech is fluent and clear, Objective Labs Result Diagrams: 10/17/19 06:00 10/17/19 06:00 Labs: Laboratory Results - last 24 hr 10/17/19 10/17/19 06:00 06:00 WBC 7.8 RBC 5.77 H Hgb 17.7 H Hct 52.7 H MCV 91.3 MCH 30.7 MCHC 33.6 RDW 14.6 Plt Count 191 Neut % (Auto) 44.7 L Lymph % (Auto) 44.7 H [place] % (Auto) 9.4 Eos % (Auto) 0.9 L Baso % (Auto) 0.3 Neut # (Auto) 3500 Lymph # (Auto) 3500 [place] # (Auto) 700 Eos # (Auto) 100 Baso # (Auto) 0 Sodium 138 Potassium 3.9 Chloride 110 H Carbon Dioxide 22 BUN 13 Creatinine 0.63 Estimated GFR > 60.0 BUN/Creatinine Ratio 20.6 Glucose 121 H Calcium 8.6 Magnesium 2.1 Total Bilirubin 0.6 AST 32 ALT 38 H Alkaline Phosphatase 64 Total Protein 6.9 Albumin 3.6 Globulin 3.3 Albumin/Globulin Ratio 1.1 Assessment & Plan Assessment & Plan narrative: Mehreen Perez is a 29-year-old morbidly obese female resident of [facility] with a past medical history significant for untreated hypertension, tobacco dependence, morbid obesity, methamphetamine use and copper IUD who presented to the emergency department with right-sided hemiparesis. 1. 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 Active. -Patient presented with right-sided hemiparesis. -NIH score 5.Continue to monitor neurological status closely. -CT of the brain and CTA of the head and neck were negative for acute intracranial process -MR stroke protocol not performed due to body habitus. Consider repeat CTA head and neck in 48 hours. -EKG demonstrated SR without acute ischemic changes. Continue to monitor closely on telemetry. -Allow for permissive hypertension for 24 hours for cerebral perfusion. Plan to start antihypertensive after if indicated. -Rsk stratify with fasting lipid panel which demonstrated fair lipid control and hemoglobin A1C at 7.0%V indicative of diabetes. -Continue aspirin 81 mg daily, plavix 75 mg daily for 3 weeks, and atorvastatin 40 mg daily at bedtime for stroke prophylaxis. -Continue physical and occupational therapy evaluation and treatment.+ -patient would benefit from acute rehab at discharge, will pursue acute rehab versus [facility] as she is now a 2 person maximum assist. 2. Newly diagnosed diabetes mellitus type 2, chronic, present on admission. Stable. -Hemoglobin A1c 7.0 indicative of diabetes and counseled the patient extensively on diabetes. -Continue [facility] blood glucose checks and low-dose correctional scale insulin. -Continue heart healthy/carbohydrate consistent diet -would initiate metformin at this time, 500 b.i.d. 3. Untreated hypertension, chronic, present on admission. Stable. -Allow for permissive hypertension x 24 hours. Plan to start antihypertensive after if indicated. Continue monitoring BP closely. -Recommend indefinite cessation of smoking and methamphetamine use as this contributes to hypertension. -will start DANA-inhibitor given history of diabetes 4. Tobacco dependence, chronic, present on admission. Stable. -Counseled patient on smoking cessation as this represents significant risk factor for CVA. 5. Morbid obesity, chronic, present on admission. Stable. -BMI 53.2. -Counseled patient on lifestyle modification including diet and exercise. -Consulted visual c developer and we appreciate her recommendations. 6. Methamphetamine use, chronic, present on admission. Stable. -Patient reports intermittent special occasion use with prior regular use. Last use several weeks ago. -Counseled patient on indefinite cessation of methamphetamine use as this represents significant risk factor for CVA. Code Status: Full code as discussed with patient VTE prophylaxis: Bilateral SCDs will initiate Lovenox as well Disposition: Patient likely to discharge in 1-2 days possibly to inpatient stroke rehabilitation. Quality VTE Deep Vein Thrombosis/Pulmonary Embolism Present on Admission: No
--- NOTE | 2019-10-17 15:00 | OT.IP.TRT ---
Current Diagnoses Cerebral infarction, unspecified (10/15/19) Occupational Therapy Treatment Note M2 OT-IP Current Condition Start: 10/16/19 14:35 Freq: Status: Active Protocol: Document 10/16/19 14:35 CGR (Rec: 10/16/19 15:07 CGR [id number]) Occupational Therapy Current Condition Current Condition Evaluation Date 10/16/19 Treatment Diagnosis R sided weakness Diagnosis Onset Date 10/15/19 M3 OT- IP Subjective and Pain Start: 10/16/19 14:35 Freq: Status: Active Protocol: Document 10/17/19 14:50 [facility] (Rec: 10/17/19 16:05 [facility] [id number]) OT- Subjective Occupational Therapy Visit Type Type Treatment Note Visit Start Time 14:50 Visit Stop Time 15:00 Total Visit Minutes 10 Occupational Therapy Visit Comments Patient Comments Pt very drowsy and sleepy but willing to talk to OT . Patient/Caregiver Goals Pt wanting to go home, but realizes would benefit from acute rehab prior to going home. OT Pain Assessment Pain When Pain Assessed At Rest Pain Present Pain Present Denied Pain M4 OT- IP ADL's Start: 10/16/19 14:35 Freq: Status: Active Protocol: Document 10/16/19 14:35 CGR (Rec: 10/16/19 15:07 CGR [id number]) OT [id number] Comments OT Self-Feeding Comments Not performed during session. OT ADL-Grooming General Evaluation Grooming Ability Standby Assistance Areas Needing Assistance Face Washing Comments OT Grooming Comments set up needed for face washing . OT ADL-Oral Care Comments Oral Care Comments pt declined OT ADL-Dressing General Eval Lower Body Dressing Ability Total Assistance Areas Needing Assistance Socks Comments OT Dressing Comments seated EOB OT ADL-Toileting Comments OT Toileting Comments Not performed OT ADL-Bathing Comments OT Bathing Comments Not performed M5 OT- IP IADL's Start: 10/16/19 14:35 Freq: Status: Active Protocol: Document 10/16/19 14:35 [facility] (Rec: 10/16/19 15:07 CGR [email or web address]) OT-Instrumental Activities of Daily Living Deficits IADL Deficits Identified Deficits Home Safety Awareness Awareness of Need for Assistance at Home Good Awareness Ability to Problem Solve Emergency Able to Problem Solve Situations Medication Management Medication Management No Deficits Identified Money Management Money Management No Deficits Identified Meal Preparation Meal Preparation Caregiver Provides Assist Automotive Hardware Engineer Automotive Hardware Engineer Caregiver Provides Assist Driving Driving Comments 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 M6 OT- IP Functional Cognition Start: 10/16/19 14:35 Freq: Status: Active Protocol: Document 10/17/19 14:50 [facility] (Rec: 10/17/19 16:05 [facility] [id number]) Cognitive Factors Limiting Selfcare Function Cognitive Tests ACL Pt able to answer all home safety questions with 100% accuracy. M9 OT- IP Assessment and Plan Start: 10/16/19 14:35 Freq: Status: Active Protocol: Document 10/17/19 14:50 [facility] (Rec: 10/17/19 16:05 [facility] [id number]) OT Summary Assessment and Plan Potential Rehabilitation Potential Good Analytic Complexity at Evaluation High Summary OT Impairments Strength,Balance,Coordination, Sensation,Functional Mobility, Self-Feeding,Grooming,Dressing ,Toileting,Bathing,Toilet Transfers,Shower Transfers, Activity Tolerance Progress Towards Goals Slow Progress due to Activity Tolerance Assessment Summary Pt will benefit from acute rehab to help improve strength , coordination, smoothness of movement for right UE and how it coordinates with the rest of her body. Goals Self-Feeding Goal Independent Grooming Goal Independent Dressing Goal Independent Toileting Goal Independent Bathing Goal Independent Toilet Transfer Goal Independent Shower Transfer Goal Independent Days to Meet Goals 19 Frequency of Treatment Frequency Of Treatment Once a Day Treatment Plan OT Treatment Plan ADL Training,Functional Mobility,Neuromuscular Re- education,Therapeutic Exercises,Vision Retraining, Patient/Family Education, Discharge Planning Other Treatment Recommendations and Next stand at sink Treatment Focus Discharge Recommendations OT Discharge Recommendations Acute Rehab Home Equipment Needs TBD Transportation Needs at Discharge Wheelchair/Cabulance
--- NOTE | 2019-10-17 16:15 | DIET.PN ---
Dietary Progress Note two attempts to work c pt today, first pt was sleeping in am, second pt was working c hospitalist. Per nursing pt may be more receptive to nutrition education tomorrow, will plan for same.
[2019-10-17] MEDS: METFORMIN HCL 500 MG TABLET PO (17:23)
[2019-10-17] MEDS: SODIUM CHLORIDE 0.9% FLUSH 10 ML IV (20:22)
[2019-10-17] MEDS: ATORVASTATIN 20 MG TABLET 40 MG PO (20:22)
--- NOTE | 2019-10-17 22:52 | PC.NURSE ---
Pt currently sleeping. NIH 6. pt ate her dinner, no problem swallowing. voiding without difficulty. pt had a bed bath. cms+. still has some numbness to RUE and RLE. pt reported its improving. call light in reach. bed alarm active.
[2019-10-18] VITALS (8 sets, daily range): BP systolic 123–158; BP diastolic 70–99; PULSE 68–87; RESP 16–20; TEMP 36.1–36.9; O2SAT 92–97
--- NOTE | 2019-10-18 02:15 | PC.NURSE ---
Patient is oriented but very drowsy so minimally responsive to questions asked. NIH = 5 as still with weakness/numbness/ataxia in right extremities. Breath sounds diminished but CTA with RA sat of 97%. HRR. Denies nausea. BT present; has not had a BM since 10/13. Denies dysuria, frequency or urgency with urination. Able to move self in bed. Gait not assessed at this time but reportedly needing 2 assist to pivot from bed to chair. Denies pain. Refuses SCD's tonight so reminded to ankle wave. Fall risk score is high and bed alarm is activated.
--- NOTE | 2019-10-18 09:08 | PC.NURSE ---
Patient still sleeping in bed. Woke patient up to attempt breakfast and medications. Patient states she did not sleep well last night I was uncomfortable and declined taking her morning medications at this time. States she will take them later, and wants to sleep. Will attempt again. Call light within reach. Continue to follow.
[2019-10-18] MEDS: CLOPIDOGREL 75 MG TABLET PO (10:31)
[2019-10-18] MEDS: lisinopriL 10 MG TABLET PO (10:31)
[2019-10-18] MEDS: ENOXAPARIN 40 MG/0.4 ML SYRINGE SUBCUT (10:31)
[2019-10-18] MEDS: FISH OIL 1,000 MG CAPSULE 1000 MG PO (10:31)
[2019-10-18] MEDS: SODIUM CHLORIDE 0.9% FLUSH 10 ML IV ×2 (10:32→21:15)
[2019-10-18] MEDS: ASPIRIN EC 81 MG TABLET PO (10:32)
[2019-10-18] MEDS: METFORMIN HCL 500 MG TABLET PO ×2 (10:44→17:11)
--- NOTE | 2019-10-18 12:27 | PT.IPTN ---
Current Diagnoses Cerebral infarction, unspecified (10/15/19) Physical Therapy Treatment Note M2 PT-IP Current Condition Start: 10/16/19 09:46 Freq: NEEDED Status: Active Protocol: Document 10/18/19 12:02 TP (Rec: 10/18/19 14:13 TP [id number]) Physical Therapy Current Condition Current Condition Evaluation Date 10/16/19 Treatment Diagnosis R hemiparesis; difficulty in walking Onset Date 10/15/19 M3 PT-IP Subjective Start: 10/16/19 09:46 Freq: NEEDED Status: Active Protocol: Document 10/18/19 12:02 TP (Rec: 10/18/19 14:13 TP [id number]) Subjective Physical Therapy Visit Type Type Treatment Note Visit Start Time 12:02 Visit Stop Time 12:27 Total Visit Minutes 25 Notes Student BUSHRA Panda supervised by BUSHRA Hartmann. 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 Patient Goals To improve strength and be able to take care of herself M4 PT-IP Mobility and Gait Start: 10/16/19 09:46 Freq: NEEDED Status: Active Protocol: Document 10/18/19 12:02 TP (Rec: 10/18/19 14:13 TP [id number]) PT-Bed Mobility Assessment Supine to Sit Supine to Sit Standby Assistance Sit to Supine Sit to Supine Standby Assistance Scooting Scooting to Edge of Bed Standby Assistance PT-Transfer Assessment Sit to and From Stand Sit to and from Stand Minimal Assistance,Moderate Assistance,2 Person Assistance ,Use of Upper Extremities Equipment Transfer Assistive Device Gait Belt,Front Wheeled Walker ,Platform Walker Orthotic/Prosthetic Devices or Brace: No Transfers Transfer Destination Bed,Chair Transfer Technique Stand Step Pivot Transfer Ability Level of Assist Minimal Assistance,Moderate Assistance,2 Person Assistance ,Use of Upper Extremities Comments Mobility Comments Pt in L sidelying resting in bed, flat upon arrival. Pt agreeable to participate with PT, but tearful and frustrated to still be in the hospital. Expressed multiple times the desire to D/C home to see her kids. Impulsive supine to sit , SBA. Gait belt and non-skid socks donned for safety. Sit to stand, FWW Min-ModA x2. Step pivot to chair FWW Min- ModA x2 with assistance [facility] for R hand on FWW and management of FWW. Stand to sit Min-ModA x2 with verbal and contact cues to reach back LUE to chair and lower slowly . Pt called sister on cell phone to request her presence for caregiver training this afternoon. NURISA spoke with sister, explaining necessity of pt to mobilize safely prior to discharge. Sister will be present for caregiver training today at 1500. Sit to stand with PFWW, ModA x2 successful on 2nd attempt with wt shift foward. Standing with Min-ModA x1 to adjust platform to FWW for R UE support. Ambulation in room approximately 25' R platform FWW, Min-ModA x2, with assistance needed to navigate PFWW. Ambulation occurs using momentum for R circumduction to advance R LE. Stand to sit at L EOB. Impulsive sit to supine, then L sidelying SBA. Pt positioned in L sidelying with pillow support. Call light, bed alarmed and all other needs within reach. Nursing notified of pt's progress and CGT in pm. Gait Assessment Gait Gait Assistance Required: Minimum Assistance,Moderate Assistance,2 Person Assist Distance (Feet) 25 Able to Maintain Weight Bearing Status Yes During Gait Assistive Devices Assistive Device Platform Walker Orthotic/Prosthetic Devices or Brace: No Gait Deviations General Gait Pattern Ataxic,Decreased Stride Length ,Decreased Feet Clearance, Flexed Trunk,Step-to Gait Factors Limiting Gait Function Factors Limiting Gait Function Abnormal Tonal Influences, Decreased Activity Tolerance, Decreased Sensation,Decreased Strength,Incoordination, Limited Range of Motion,Pain, Poor Balance,Poor Safety Awareness Comments Gait Comments see mobility comments Stair Climbing Assessment Comments Stair Climbing Comments Not assessed PT-Balance Assessment Sitting Balance and Reactions Static Sitting Balance Ability Normal Dynamic Sitting Balance Ability Good Standing Balance and Reactions Static Standing Balance Ability Poor Dynamic Standing Balance Ability Poor Device Used FWW, PFWW M5 PT-IP Objective Assessments Start: 10/16/19 09:46 Freq: NEEDED Status: Active Protocol: Document 10/16/19 15:12 AW (Rec: 10/16/19 15:47 AW [id number]) Orientation Orientation/Cognition Level of Alertness Alert Orientation Name,Day of Week,Place, Situation Language Function Ability Expressive Aphasia Safety Awareness Decreased Safety Awareness Memory Description No Deficits Noted Comments Pt was alert and oriented. Speech was intelligible and speech content was appropriate . Gross Range of Motion Upper Extremity ROM Assessment Within Functional Limits Lower Extremity ROM Assessment Within Functional Limits Strength Upper Extremity Strength Assessment Right Impaired Lower Extremity Strength Assessment Right Impaired Hip 3-/5 Knee 3-/5 Ankle 3-/5 Comments Strength Comments LLE grossly 5/5 Coordination Assessment Gross Coordination Gross Coordination Impaired Assessment Finger to Nose Test Activity Impossible Foot Tapping Test Activity Impossible Sensation Assessment Sensation Gross Sensation Right UE Impaired,Left UE Impaired,Right LE Impaired, Left LE Impaired Light Touch Impaired Proprioception (Position) Impaired Sensation Description Numbness Comments Sensation Comments Pt describes dull light touch sensation in BLE with distal more affected than proximal. Muscle Tone Muscle Tone WNL No Muscle Tone Location Bilateral Lower Extremity Type of Tone Hypotonicity Other Assessments Other Other Assessments On vision testing, haider appear intact. Pt does exhibit poor tracking on smooth pursuits - especially horizontally - and impaired saccades. Facial symmetry is normal and tongue does not deviate. M6 PT-IP Treatment Start: 10/16/19 09:46 Freq: NEEDED Status: Active Protocol: Document 10/18/19 12:02 TP (Rec: 10/18/19 14:13 TP [id number]) Physical Therapy Treatment Education Education Provided Safety Other Treatments Other Treatment Performed Education for safe use of FWW, PFWW for transfers. M7 PT-IP Assessment and Plan Start: 10/16/19 09:46 Freq: NEEDED Status: Active Protocol: Document 10/18/19 12:02 TP (Rec: 10/18/19 14:13 TP [id number]) PT Summary Assessment and Plan Potential Rehabilitation Potential Fair Status of Condition at Evaluation Evolving Summary Impairments ROM,Strength,Balance, Coordination,Sensation,Tone, Cognition,Bed Mobility, Transfers,Gait,Activity Tolerance Progress Towards Goals Slow Progress due to Pain,Slow Progress due to Medical Issues Assessment Summary Pt is motivated to discharge home to be with kids. Desires to be independent without addressing current mobility needs. Pt's R sided weakness makes safe mobility difficult. Dynamic standing balance impaired, requiring R platform FWW with Min-ModA x2, with specific assistance for PFWW management. Gait and balance improved with cues to slow down and control movement. Bed mobility impulsive. Education needed to provide techniques for safe bed mobility. SNF rehab recommended for pt. Pt says she will not go to a usp and will discharge herself. PT to continue strength and endurance for impaired R UE and LE, gait training with R platform FWW, and techniques for bed mobility with R sided weakness . Caregiver training to occur today at 1500. Pt says [id number] may have FWW. Information for acquiring platform will be provided during caregiver training. Goals Bed Mobility Goal Standby Assistance Transfer Goal Minimal Assistance Gait Goal Minimal Assistance Gait Distance 25 Days to Meet Goals 10 Frequency of Treatment Frequency Of Treatment Twice a Day Treatment Plan Physical Therapy Treatment Plan Bed Mobility Training,Transfer Training,Gait Training, Therapeutic Exercise,Balance Retraining,Discharge Planning, Neuromuscular Re-ed, Coordination Retraining Other Recommendations and Next Treatment standing balance/tolerance, Focus ambulation, safe bed mobility Recommendations To Nursing Amount of Assist Needed 2 Person Assist Discharge Recommendations PT Discharge Recommendations SNF Rehab,Acute Rehab Other Discharge Recommendations Caregiver training to occur today for assessment of safety and mobility for home at 1500 in case of pt refusal of SNF recommendation. Equipment Needed for Home Before Platform, FWW, pt checking to Discharge see if bariatric FWW present at home, defer to rehab setting Transportation Needs at Discharge Wheelchair/Cabulance
--- NOTE | 2019-10-18 13:04 | DIET.PN ---
Dietary Progress Note Assessment: 29y F admitted for acute left brain CVA referred to nutrition for morbid obesity (BMI 50.8) and new onset DM2 (A1c 7.0). HT: 172.7cm WT: 151.5kg BMI:50.8 Labs: A1c 7.0, TG 208 H, HDL 25 L MNA: not calculated in Admit Assessment Quinn: 19 Usual Day: B: cereal L: whatever is available D: meat, starch (noodles/potato), veg Pt shops for groceries independently, admits to more snacking and more sugary foods to cope c pandemic. Has never been told she was diabetic before this admit. Nutrition Diagnosis: 1. altered nutrition laboratory values r/t undesirable coping mechanisms aeb pt reports eating sugary snacks to cope c stress of global pandemic, A1c 7.0, TG 208, pt BMI 50.8. 2. morbid obesity r/t undesirable food choices aeb BMI 50.8, pt admits snacking more on sugar during covid. Interventions: 1. Discussed plan to return for DM ed and reiterated importance of healthy eating as mobility is compromised at this time. Pts size and recent CVA will make weight loss and care challenging. Pt turned self in bed but needed my help to adjust R leg as she could not move it independently when rolling. Diet Order: HH/CCD Monitoring/Evaluations: RD to continue DM training and healthy eating education daily until d/c
--- NOTE | 2019-10-18 16:32 | PT.IPTN ---
Addendum entered and electronically signed by Derrek Malin PTA 10/19/19 09:16: provided added information during tx: had tingling in B hands prior to hospitalization. He is concerned that his hasn't received another or results of CT or MRI talked about since ER admission date. PLATFORM SUPERVISOR instructed PROM R ankle DF and MTPs flexion to facilitated with cuing for performance to improve self activation during gait advancement with no trace muscle contraction noted, demonstration of extensor tone PF, knee extension and hip IR. Encourage TELEPHONE INSTRUMENT SUPERVISOR to assist patient with additional ROM to R foot/ toes between PT treatments for muscle re-education reinforcement. Original Note: Current Diagnoses Cerebral infarction, unspecified (10/15/19) Physical Therapy Treatment Note M2 PT-IP Current Condition Start: 10/16/19 09:46 Freq: NEEDED Status: Active Protocol: Document 10/18/19 12:02 TP (Rec: 10/18/19 14:13 TP [id number]) Physical Therapy Current Condition Current Condition Evaluation Date 10/16/19 Treatment Diagnosis R hemiparesis; difficulty in walking Onset Date 10/15/19 M3 PT-IP Subjective Start: 10/16/19 09:46 Freq: NEEDED Status: Active Protocol: Document 10/18/19 15:19 SP (Rec: 10/18/19 17:37 SP [id number]) Subjective Physical Therapy Visit Type Type Treatment Note Visit Start Time 15:19 Visit Stop Time 16:32 Total Visit Minutes 51 Notes Student BUSHRA Panda attended and provided assist as needed during mobility, supervised by Derrek TOMLINSON. completed caregiver training with assisting with mobility transfers, gait during tx. Split tx ([id number], [id number] ) secondary to needing acquire DME needs for tx and discuss with PT and care mgt team patient and family DC discussion to continue tx needs to assess. Physical Therapy Visit Comments Patient Comments Pt continues to discuss wants to go home to see her kids and do PT at home. Patient Goals To improve strength and be able to take care of herself Therapy Pain Assessment Pain Present Pain Present Denied Pain M4 PT-IP Mobility and Gait Start: 10/16/19 09:46 Freq: NEEDED Status: Active Protocol: Document 10/18/19 15:19 SP (Rec: 10/18/19 17:37 SP [id number]) PT-Bed Mobility Assessment Supine to Sit Supine to Sit Standby Assistance Sit to Supine Sit to Supine Standby Assistance Scooting Scooting to Edge of Bed Standby Assistance Scooting Up and Down in Bed Standby Assistance PT-Transfer Assessment Sit to and From Stand Sit to and from Stand Contact Guard Assistance, Moderate Assistance,2 Person Assistance,Use of Upper Extremities Equipment Transfer Assistive Device Gait Belt,Platform Walker Orthotic/Prosthetic Devices or Brace: No Transfers Transfer Destination Bed,Toilet,Wheelchair Transfer Technique Stand Step Pivot Transfer Ability Level of Assist Contact Guard Assistance, Moderate Assistance,2 Person Assistance,Use of Upper Extremities Comments Mobility Comments Pt in L sidelying when arrived , in room when arrived . Long discussion on DC plans and progress making in PT in am and recommendation of acute rehab/skilled rehab to improve strength and functional mobiltiy. Patient very resistant and feels would be beneficial. PLATFORM SUPERVISOR /SPTA left room to get w/c and slide board if needed for transfers depending on support need. Pt wanted to assess for home and if can help her. L sidelying > sitting SBA with use of L bed rail with LUE and pushing to transition to sitting. Scoot to EOB SBA, sitting at EOB good balance without self support of UE. donned gait belt, SPT transfer using L bed rail to stand, Min A by and CGA by PLATFORM SUPERVISOR, transitioned LUE to w/c L arm rest step pivot transfer EOB to w/c Reema x1, CGA x1 for balance then cued for safe slow descent with good demonstration. Pt was able sit <> stand from w/c pushing up from w/c arm rest LUE Mod A x1, CGA x1 then patient placed RUE onto platform of FWW assisted strap for safety secure. Pt ambulated across room and back step to gait Mod A x1 by , CGA by PLATFORM SUPERVISOR with alot assisting PFWW pacing and reposition obstacle mgt and cuing quality R LE postioning/ sequencing with PFWW approx 25 ft then returned to L side bed. Step pivot backing up to EOB and reaching back prior to sitting with Min A for grading safely . Sit > stand from EOB Min A x1, CGA x1 using PFWW walked to bathroom with cuing for pivoting to L, Mod A x1, CGA x1 for balance and backing up to toilet. Pt used L grab bar for slow descent to toilet with Mod A of , CGA of PLATFORM SUPERVISOR. Pt was able to complete toileting including BM and self hygiene in sitting stable . Sit to stand Mod A of 1, Min A x1 to PFWW while using grab bar for self support. Ambulated to bed usign PFWW Min A x1and CGA x 1. Pt step pivot backing up and side step at EOB with PFWW assist of cuing. Min A for slow descent of and cuing for reaching back with LUE. sitting>L sidelying SBA, provided pillow for support. Pt had call light and all needs in reach and leavign as well, TELEPHONE INSTRUMENT SUPERVISOR in room doing sugar assessment when left. Gait Assessment Gait Gait Assistance Required: Contact Guard Assist,Minimum Assistance,2 Person Assist Distance (Feet) 25 Able to Maintain Weight Bearing Status Yes During Gait Assistive Devices Assistive Device Platform Walker Gait Deviations General Gait Pattern Ataxic,Decreased Stride Length ,Decreased Feet Clearance, Flexed Trunk,Step-to Gait Factors Limiting Gait Function Factors Limiting Gait Function Abnormal Tonal Influences, Decreased Activity Tolerance, Decreased Sensation,Decreased Strength,Incoordination, Limited Range of Motion,Pain, Poor Balance,Poor Safety Awareness Comments Gait Comments see mobility comments Stair Climbing Assessment Comments Stair Climbing Comments Not assessed, stated an stay on main level, no stairs to enter house if needed. PT-Balance Assessment Sitting Balance and Reactions Static Sitting Balance Ability Normal Dynamic Sitting Balance Ability Good Standing Balance and Reactions Static Standing Balance Ability Good Dynamic Standing Balance Ability Fair Device Used PFWW M5 PT-IP Objective Assessments Start: 10/16/19 09:46 Freq: NEEDED Status: Active Protocol: Document 10/16/19 15:12 AW (Rec: 10/16/19 15:47 AW [id number]) Orientation Orientation/Cognition Level of Alertness Alert Orientation Name,Day of Week,Place, Situation Language Function Ability Expressive Aphasia Safety Awareness Decreased Safety Awareness Memory Description No Deficits Noted Comments Pt was alert and oriented. Speech was intelligible and speech content was appropriate . Gross Range of Motion Upper Extremity ROM Assessment Within Functional Limits Lower Extremity ROM Assessment Within Functional Limits Strength Upper Extremity Strength Assessment Right Impaired Lower Extremity Strength Assessment Right Impaired Hip 3-/5 Knee 3-/5 Ankle 3-/5 Comments Strength Comments LLE grossly 5/5 Coordination Assessment Gross Coordination Gross Coordination Impaired Assessment Finger to Nose Test Activity Impossible Foot Tapping Test Activity Impossible Sensation Assessment Sensation Gross Sensation Right UE Impaired,Left UE Impaired,Right LE Impaired, Left LE Impaired Light Touch Impaired Proprioception (Position) Impaired Sensation Description Numbness Comments Sensation Comments Pt describes dull light touch sensation in BLE with distal more affected than proximal. Muscle Tone Muscle Tone WNL No Muscle Tone Location Bilateral Lower Extremity Type of Tone Hypotonicity Other Assessments Other Other Assessments On vision testing, haider appear intact. Pt does exhibit poor tracking on smooth pursuits - especially horizontally - and impaired saccades. Facial symmetry is normal and tongue does not deviate. M6 PT-IP Treatment Start: 10/16/19 09:46 Freq: NEEDED Status: Active Protocol: Document 10/18/19 15:19 SP (Rec: 10/18/19 17:37 SP [id number]) Physical Therapy Treatment Education Education Provided Safety Other Treatments Other Treatment Performed Education for safe use PFWW for transfers. M7 PT-IP Assessment and Plan Start: 10/16/19 09:46 Freq: NEEDED Status: Active Protocol: Document 10/18/19 15:19 SP (Rec: 10/18/19 17:37 SP [id number]) PT Summary Assessment and Plan Potential Rehabilitation Potential Fair Status of Condition at Evaluation Evolving Summary Impairments ROM,Strength,Balance, Coordination,Sensation,Tone, Cognition,Bed Mobility, Transfers,Gait,Activity Tolerance Progress Towards Goals Slow Progress due to Pain,Slow Progress due to Medical Issues Assessment Summary Pt is motivated to discharge home to be with kids. Desires to be independent without addressing current mobility needs. Pt's R sided weakness makes safe mobility difficult. Dynamic standing balance impaired, requiring R platform FWW with Min-ModA x2, with specific assistance for PFWW management. Gait and balance improved with cues to slow down and control movement. Bed mobility impulsive. Education needed to provide techniques for safe bed mobility. SNF rehab recommended for pt. Pt says she will not go to a half-way and will discharge herself. PT to continue strength and endurance for impaired R UE and LE, gait training with R platform FWW, and techniques for bed mobility with R sided weakness . Caregiver training to occur today at 1500. Pt says [id number] may have FWW. Information for acquiring platform will be provided during caregiver training. Goals Bed Mobility Goal Standby Assistance Transfer Goal Minimal Assistance Gait Goal Minimal Assistance Gait Distance 25 Days to Meet Goals 10 Frequency of Treatment Frequency Of Treatment Twice a Day Treatment Plan Physical Therapy Treatment Plan Bed Mobility Training,Transfer Training,Gait Training, Therapeutic Exercise,Balance Retraining,Discharge Planning, Neuromuscular Re-ed, Coordination Retraining Other Recommendations and Next Treatment standing balance/tolerance, Focus ambulation, safe slow bed mobility with RUE/ RLE repositioning Recommendations To Nursing Amount of Assist Needed 2 Person Assist Discharge Recommendations PT Discharge Recommendations SNF Rehab,Acute Rehab Other Discharge Recommendations Pt agreeable to acute rehab at end of tx to improve strength . Equipment Needed for Home Before R Platform, defer to rehab Discharge setting Transportation Needs at Discharge Wheelchair/Cabulance
--- NOTE | 2019-10-18 17:19 | PM.PN.1 ---
Subjective Subjective Date Patient Seen: 10/18/19 Interval history: Patient continues to have significant right upper extremity weakness, right lower extremity weakness appears to be improved. She reports feeling tired. Otherwise patient has no significant complaints Exam Vital Signs (past 8 hours): - 10/18/19 11:55 10/18/19 15:45 Temperature 97.1 F L 97.6 F Pulse Rate 68 83 Respiratory Rate 16 18 Blood Pressure 123/76 140/99 H Pulse Oximetry 96 93 Oxygen Delivery Method Room Air Oxygen Flow Rate 0 Narrative Exam Narrative: Pleasant female resting comfortably in no obvious distress Lungs: Clear to auscultation Cardiac exam: Regular rate and rhythm normal S1-S2 Abdomen: Soft nontender nondistended Extremities: No edema Neuro exam: Unchanged from yesterday Objective Labs Result Diagrams: 10/17/19 06:00 10/17/19 06:00 Assessment & Plan Assessment & Plan narrative: Assessment & Plan narrative: Mehreen Perez is a 29-year-old morbidly obese female resident of [facility] with a past medical history significant for untreated hypertension, tobacco dependence, morbid obesity, methamphetamine use and copper IUD who presented to the emergency department with right-sided hemiparesis. 1. 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 Active. -Patient presented with right-sided hemiparesis. -NIH score 5.Continue to monitor neurological status closely. -CT of the brain and CTA of the head and neck were negative for acute intracranial process -MR stroke protocol not performed due to body habitus. -EKG demonstrated SR without acute ischemic changes. Continue to monitor closely on telemetry. --Rsk stratify with fasting lipid panel which demonstrated fair lipid control and hemoglobin A1C at 7.0%V indicative of diabetes. -Continue aspirin 81 mg daily, plavix 75 mg daily for 3 weeks, and atorvastatin 40 mg daily at bedtime for stroke prophylaxis. -Continue physical and occupational therapy evaluation and treatment.+ -patient would benefit from acute rehab at discharge, will pursue acute rehab versus senior care as she is now a 2 person maximum assist. -patient has been accepted to acute rehab anticipate discharge tomorrow 2. Newly diagnosed diabetes mellitus type 2, chronic, present on admission. Stable. -Hemoglobin A1c 7.0 indicative of diabetes and counseled the patient extensively on diabetes. -Continue [facility] blood glucose checks and low-dose correctional scale insulin. -Continue heart healthy/carbohydrate consistent diet -would initiate metformin at this time, 500 b.i.d. 3. Untreated hypertension, chronic, present on admission. Stable. -Allow for permissive hypertension x 24 hours. Plan to start antihypertensive after if indicated. Continue monitoring BP closely. -Recommend indefinite cessation of smoking and methamphetamine use as this contributes to hypertension. -will start DANA-inhibitor given history of diabetes 4. Tobacco dependence, chronic, present on admission. Stable. -Counseled patient on smoking cessation as this represents significant risk factor for CVA. 5. Morbid obesity, chronic, present on admission. Stable. -BMI 53.2. -Counseled patient on lifestyle modification including diet and exercise. -Consulted rn palliative care and we appreciate her recommendations. 6. Methamphetamine use, chronic, present on admission. Stable. -Patient reports intermittent special occasion use with prior regular use. Last use several weeks ago. -Counseled patient on indefinite cessation of methamphetamine use as this represents significant risk factor for CVA. Code Status: Full code as discussed with patient VTE prophylaxis: Bilateral SCDs will initiate Lovenox as well Disposition: Patient likely to discharge tomorrow to acute rehab Quality VTE Deep Vein Thrombosis/Pulmonary Embolism Present on Admission: No
--- NOTE | 2019-10-18 17:26 | OT.IPNOTE ---
Pt just completed caregiver training earlier with FOOD CHECKER and her family and now realizing that it would be best for her to go to rehab. Pt too tired at this time to do OT treatment. Therefore check on pt tomorrow.
[2019-10-18] MEDS: ATORVASTATIN 20 MG TABLET 40 MG PO (21:15)
[2019-10-19] VITALS: BP 144/103; PULSE 86; RESP 20; TEMP 36.2; O2SAT 95
[2019-10-19 03:01] VITALS: BP 155/88; PULSE 75; RESP 18; TEMP 36.6; O2SAT 95
[2019-10-19 07:00] VITALS: BP 136/99; PULSE 78; RESP 16; TEMP 36.3; O2SAT 96
[2019-10-19] MEDS: lisinopriL 10 MG TABLET PO (09:40)
[2019-10-19] MEDS: FISH OIL 1,000 MG CAPSULE 1000 MG PO (09:40)
[2019-10-19] MEDS: ENOXAPARIN 40 MG/0.4 ML SYRINGE SUBCUT (09:40)
[2019-10-19] MEDS: METFORMIN HCL 500 MG TABLET PO (09:40)
[2019-10-19] MEDS: ASPIRIN EC 81 MG TABLET PO (09:40)
[2019-10-19] MEDS: CLOPIDOGREL 75 MG TABLET PO (09:40)
[2019-10-19] MEDS: SODIUM CHLORIDE 0.9% FLUSH 10 ML IV (09:40)
--- NOTE | 2019-10-19 10:33 | PC.NURSE ---
Patient sleeping this morning, woke up to eat breakfast and then went right back to sleep. Patient withdrawn and not receptive to care at this time. She took medications without difficulty, then when O.T. entered for second time this morning to attempt working with patient she kept her eyes closed and mumbled, not wanting to wake up again. Patient moving her self and turning in bed easily, laying on her right side with multiple pillows. Per critical care clinical nurse specialist patient received bed bath and also agreed to shower. Call light within reach, and bed alarm on for safety. Continue to follow.
--- NOTE | 2019-10-19 10:38 | OT.IPNOTE ---
Attempted to see pt for Ot treatment and pt wanting to sleep and states too tired, therefore to try to see pt in the PM.
[2019-10-19 11:00] VITALS: BP 144/92; PULSE 73; RESP 16; TEMP 36.2; O2SAT 97
--- NOTE | 2019-10-19 11:29 | PM.DS.1 ---
History of Present Illness History of Present Illness Chief complaint: thinks she had a stroke Narrative: Mehreen Perez is a 29-year-old morbidly obese female resident of [facility] and smoker with a limited medical history though does include hypertension and use of a copper T IUD presented to the emergency department after a less than 24 hour history of development of weakness on her left side. She was in the bathroom and sitting on the toilet when she felt her left arm and leg go numb. She was unable to move off of the toilet and summoned her to come and a sister into bed. When she woke up this morning she continued to have weakness on that side. She denies a history of cervical neck problems, denies aphasia, difficulty swallowing, vision changes, headache, chest pain, shortness of breath, nausea or vomiting, dysuria, diarrhea or constipation, or falling. She states that she takes medications for hypertension but does not know what it is. In the ED they assessed her NIH score of 5. CT of the brain and CTA of the head neck were both negative for acute intracranial process. Her case was discussed with [facility] who recommended close monitoring of patient overnight and to have her undergo MRI imaging of her head as well as an echocardiogram. Temperature 97.8, blood pressure 129/81, heart rate 94, respiratory rate 20, oxygen saturation 97% on room air, she weighs 158.6 kg with a BMI 53.1. WBC 9.3, RBC 6.26, hemoglobin 19.1, hematocrit 57.4, platelet count of 209, sodium 137, potassium 4.0, chloride 107, CO2 26, creatinine 0.63, BUN 13, GFR greater than 60, glucose 123, calcium 9.1, and COVID-19 negative. Discharge Providers Provider Date of admission: 10/15/19 20:53 Discharge Date: 10/19/19 Consults: 10/15/19 22:28 Consult to Discharge Planning Routine Comment: Consult to Occupational Therapy Evaluate & Treat Comment: Physician Instructions: Evaluate and treat Consult to Physical Therapy Evaluate & Treat Comment: Physician Instructions: Evaluate and Treat 10/17/19 07:02 Consult to Dietitian, Adult Urgent Comment: Reason For Exam: CVA/DM Discharge provider: Lionel Castanon MD Summary Hospital Course Discharge Diagnosis: 1. Acute left-sided CVA with right hemiparesis, present on admission 2. Type 2 diabetes, non-insulin requiring, new diagnosis present on admission 3. Chronic hypertension 4. Tobacco dependence 5. Methamphetamine abuse/dependence 6. Severe obesity, BMI 53 Hospital Course: Mehreen Perez is a 29-year-old morbidly obese female resident of [facility] with a past medical history significant for untreated hypertension, tobacco dependence, morbid obesity, methamphetamine use and copper IUD who presented to the emergency department with right-sided hemiparesis. 1. 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 Active. -Patient presented with right-sided hemiparesis. NIH score 5. -labs notable for polycythemia hemoglobin 19.1, hematocrit 57.4 on admission likely contributor to CVA and requiring further hematology evaluation -Neurologically stable with some improvement since admission but still with significant weakness on the right side. She is 2 person max assist -CT of the brain and CTA of the head and neck were negative for acute intracranial process -MR stroke protocol not performed due to body habitus. -EKG demonstrated SR without acute ischemic changes. No AFib on telemetry -total cholesterol 166, triglycerides 209, LDL 99, HDL 25 -Continue aspirin 81 mg daily, plavix 75 mg daily for 3 weeks, and atorvastatin 40 mg daily at bedtime. -Continue physical and occupational therapy evaluation and treatment. -patient appears quite withdrawn, consider initiating SSRI -discharge to acute inpatient rehab at [facility] 2. Polycythemia, present on admission, active -hemoglobin 19.1, hematocrit 57.4 on admission, last hemoglobin 17.7 and hematocrit 52.7, normal WBC and platelet counts -differential includes due to cigarette smoking versus myeloproliferative disorder such as polycythemia vera -consider hematology consult at acute inpatient rehab 3. Newly diagnosed diabetes mellitus type 2, chronic, present on admission. Stable. -Hemoglobin A1c 7.0 indicative of diabetes and counseled the patient extensively on diabetes. -Continue ACHS blood glucose checks and low-dose correctional scale insulin. -Continue heart healthy/carbohydrate consistent diet -started metformin 500 mg b.i.d. 4. Untreated hypertension, chronic, present on admission. Stable. -Allowed for permissive hypertension x 24 hours. -Recommend indefinite cessation of smoking and methamphetamine use as this contributes to hypertension. -initiated lisinopril 10 mg daily in light of history of diabetes 5. Tobacco dependence, chronic, present on admission. Stable. -Counseled patient on smoking cessation as this represents significant risk factor for CVA. 6. Morbid obesity, chronic, present on admission. Stable. -BMI 53.2. -Counseled patient on lifestyle modification including diet and exercise. -Consulted water fabricator operator and we appreciate her recommendations. 7. Methamphetamine use, chronic, present on admission. Stable. -Patient reports intermittent special occasion use with prior regular use. Last use several weeks ago. -Counseled patient on indefinite cessation of methamphetamine use as this represents significant risk factor for CVA. Code Status: Full code as discussed with patient VTE prophylaxis: Enoxaparin Status at Discharge Cognitive/behavioral status at discharge: oriented Functional status at discharge: bed bound Overall status at discharge: patient is not back to baseline Time Spent with Patient Time spent: Greater than 30 minutes Exam Vital Signs (past 8 hours): - 10/19/19 07:00 Temperature 97.4 F L Pulse Rate 78 Respiratory Rate 16 Blood Pressure 136/99 H Pulse Oximetry 96 Oxygen Delivery Method Room Air Oxygen Flow Rate 0 Objective Labs Result Diagrams: 10/17/19 06:00 10/17/19 06:00 Discharge Plan Discharge Plan Patient Disposition: Xfer Inpatient Rehab Other facility: [facility] Discharge orders & Medications Discharge Orders: Discharge (Order); Ordered 10/19/19 Ordered By: Lionel Castanon Prescriptions: Continued VIT#96/FERROUS FUM/FA ( Tablet) 1 tab PO Q DAY Qty: 90 RF: 3 Discharge Health Status Multidrug resistant organism: No MDRO Diet/Activity/Treatments Diet: Carb-consistent/Diabetic Liquid consistency: Normal/Thin Food texture: Regular Special Rehabilitation Services Reason for rehabilitation: Therapy following stroke Rehab type: Physical therapy and Occupational therapy Quality VTE Deep Vein Thrombosis/Pulmonary Embolism Present on Admission: No
--- NOTE | 2019-10-19 11:59 | PT.IPTN ---
Addendum entered and electronically signed by Sanjuanita Hernández PT 10/19/19 12:04: Pt notes tingling to right face, arm, leg during mobility, not present at rest at this time. Original Note: Current Diagnoses Cerebral infarction, unspecified (10/15/19) Physical Therapy Treatment Note M2 PT-IP Current Condition Start: 10/16/19 09:46 Freq: NEEDED Status: Active Protocol: Document 10/18/19 12:02 TP (Rec: 10/18/19 14:13 TP [id number]) Physical Therapy Current Condition Current Condition Evaluation Date 10/16/19 Treatment Diagnosis R hemiparesis; difficulty in walking Onset Date 10/15/19 M3 PT-IP Subjective Start: 10/16/19 09:46 Freq: NEEDED Status: Active Protocol: Document 10/19/19 11:40 AW (Rec: 10/19/19 12:02 AW [id number]) Subjective Physical Therapy Visit Type Type Treatment Note Visit Start Time 11:25 Visit Stop Time 11:36 Total Visit Minutes 11 Number of FINANCE INTERN Visits 0 Physical Therapy Visit Comments Patient Comments Pt states she is very tired and has not slept much. Therapy Pain Assessment Pain Present Pain Present Denied Pain M4 PT-IP Mobility and Gait Start: 10/16/19 09:46 Freq: NEEDED Status: Active Protocol: Document 10/19/19 11:40 AW (Rec: 10/19/19 12:02 AW [id number]) PT-Bed Mobility Assessment Supine to Sit Supine to Sit Standby Assistance Sit to Supine Sit to Supine Standby Assistance Scooting Scooting to Edge of Bed Standby Assistance PT-Transfer Assessment Sit to and From Stand Sit to and from Stand Moderate Assistance,1 Person Assistance,Use of Upper Extremities Equipment Transfer Assistive Device Gait Belt,Platform Walker Orthotic/Prosthetic Devices or Brace: No Transfers Transfer Destination Bed,Chair Transfer Technique Stand Step Pivot Transfer Ability Level of Assist Moderate Assistance,1 Person Assistance,Use of Upper Extremities Comments Mobility Comments Pt in R sidelying when arrived . She required some encouragement but was ultimately willing to work with PT. She completed supine to sit SBA, using momentum to get to sitting. She needed verbal cues to increase awareness of and to protect her right shoulder. She was able to sit EOB without UE support. She then used momentum to bring her right arm up to the platform. PT assisted to secure the strap on the platform. Pt stood from the bed mod A x 1 and ambulated 5 feet to transfer to the chair. Gait with PFWW required mod A x 1 to steady the walker and verbal cueing for RLE advancement. Transfer to the chair required mod A x 1 to control descent. Pt agreed to stand again and was able to distribute her weight more evenly but continued with L>R WB. She stood ~3 minutes before requesting return to the bed. She ambulated the 5 feet back to the bed with PFWW mod A x 1. She sat and completed sit to supine SBA. Pt was positioned on the bed with call light in reach. Gait Assessment Gait Gait Assistance Required: Moderate Assistance,1 Person Assist Distance (Feet) 5 Assistive Devices Assistive Device Platform Walker Orthotic/Prosthetic Devices or Brace: No Gait Deviations General Gait Pattern Ataxic,Decreased Stride Length ,Decreased Feet Clearance, Flexed Trunk,Step-to Gait Factors Limiting Gait Function Factors Limiting Gait Function Abnormal Tonal Influences, Decreased Activity Tolerance, Decreased Sensation,Decreased Strength,Incoordination, Limited Range of Motion,Pain, Poor Balance,Poor Safety Awareness Comments Gait Comments see mobility comments M5 PT-IP Objective Assessments Start: 10/16/19 09:46 Freq: NEEDED Status: Active Protocol: Document 10/16/19 15:12 AW (Rec: 10/16/19 15:47 AW [id number]) Orientation Orientation/Cognition Level of Alertness Alert Orientation Name,Day of Week,Place, Situation Language Function Ability Expressive Aphasia Safety Awareness Decreased Safety Awareness Memory Description No Deficits Noted Comments Pt was alert and oriented. Speech was intelligible and speech content was appropriate . Gross Range of Motion Upper Extremity ROM Assessment Within Functional Limits Lower Extremity ROM Assessment Within Functional Limits Strength Upper Extremity Strength Assessment Right Impaired Lower Extremity Strength Assessment Right Impaired Hip 3-/5 Knee 3-/5 Ankle 3-/5 Comments Strength Comments LLE grossly 5/5 Coordination Assessment Gross Coordination Gross Coordination Impaired Assessment Finger to Nose Test Activity Impossible Foot Tapping Test Activity Impossible Sensation Assessment Sensation Gross Sensation Right UE Impaired,Left UE Impaired,Right LE Impaired, Left LE Impaired Light Touch Impaired Proprioception (Position) Impaired Sensation Description Numbness Comments Sensation Comments Pt describes dull light touch sensation in BLE with distal more affected than proximal. Muscle Tone Muscle Tone WNL No Muscle Tone Location Bilateral Lower Extremity Type of Tone Hypotonicity Other Assessments Other Other Assessments On vision testing, haider appear intact. Pt does exhibit poor tracking on smooth pursuits - especially horizontally - and impaired saccades. Facial symmetry is normal and tongue does not deviate. M6 PT-IP Treatment Start: 10/16/19 09:46 Freq: NEEDED Status: Active Protocol: Document 10/19/19 11:40 AW (Rec: 10/19/19 12:02 AW [id number]) Physical Therapy Treatment Education Education Provided Safety M7 PT-IP Assessment and Plan Start: 10/16/19 09:46 Freq: NEEDED Status: Active Protocol: Document 10/19/19 11:40 AW (Rec: 10/19/19 12:02 AW [id number]) PT Summary Assessment and Plan Potential Rehabilitation Potential Fair Status of Condition at Evaluation Stable Summary Impairments ROM,Strength,Balance, Coordination,Sensation,Tone, Cognition,Bed Mobility, Transfers,Gait,Activity Tolerance Progress Towards Goals Slow Progress due to Medical Issues,Slow Progress due to Activity Tolerance Goals Bed Mobility Goal Standby Assistance Transfer Goal Minimal Assistance Gait Goal Minimal Assistance Gait Distance 25 Days to Meet Goals 10 Frequency of Treatment Frequency Of Treatment Twice a Day Treatment Plan Physical Therapy Treatment Plan Bed Mobility Training,Transfer Training,Gait Training, Therapeutic Exercise,Balance Retraining,Discharge Planning, Neuromuscular Re-ed, Coordination Retraining Other Recommendations and Next Treatment trial FWW (remove platform) Focus with 2PA for ambulation; standing balance/tolerance, safe slow bed mobility with RUE/ RLE repositioning Recommendations To Nursing Amount of Assist Needed 2 Person Assist,PT/OT Assist Only Discharge Recommendations PT Discharge Recommendations SNF Rehab,Acute Rehab Equipment Needed for Home Before defer to rehab setting Discharge Transportation Needs at Discharge Wheelchair/Cabulance
[2019-10-19 13:48] LABS: COVID19 -Nasal RAPID Negative (Negative)
--- NOTE | 2019-10-19 14:18 | PT-IP ANOTE ---
Contacted pt for PM treatment. She was getting dressed and gathering her belongings with help from ELBERT. Plan is for S transport to [facility] rehab at 1500. Counseled pt to continue to increase awareness of her right shoulder for joint protection as she moves, especially because she tends to use momentum to position herself. No charge.
--- NOTE | 2019-10-19 14:37 | CM.DPNOTE ---
DC Note [facility] inpt rehab has secured auth from patient's insurance and is accepted for admission today. Patient aware an agreeable to this plan. Arranged BLS for p/u at 1500, updated Annmarie at [facility]. COVID-19 test completed and Neg. Faxed DC summary per Annmarie's request. Completed BLS medical necessity form which was signed by Dr Castanon. N2N number given to NICOLAS Cowan P# [phone] P: DC to [facility] via BLS today JOSSELIN Wen
--- NOTE | 2019-10-19 15:21 | PC.NURSE ---
Report called to Sanjuanita at [facility] rehab. IV dc'd and patient dressed with assistance of FIREPERSON, waiting for order picker by [facility] for transport. Paperwork packet ready. Patient requested her sister Maria Guadalupe [phone] be notified, unable to reach her but left message.
[2019-10-19 16:00] VITALS: BP 139/101; PULSE 102; RESP 20; TEMP 36.1
== END 2019-10-19 16:10 | DRG 45 ==
LOC: ED 18:58 → AC 20:54
PROVIDERS: Emergency Medicine; Internal Medicine; Admitting Provider Nurse Practitioner Family; Emergency Provider Emergency Medicine; Referring Provider Emergency Medicine; Visit Provider Nurse Practitioner Family
DX: I63.9 Cerebral infarction, unspecified (principal); G81.91 Hemiplegia, unspecified affecting right dominant side; Z68.43 Body mass index [BMI] 50.0-59.9, adult; E66.01 Morbid (severe) obesity due to excess calories; F15.20 Other stimulant dependence, uncomplicated; D75.1 Secondary polycythemia; I10 Essential (primary) hypertension; F17.210 Nicotine dependence, cigarettes, uncomplicated; R29.705 NIHSS score 5; E11.9 Type 2 diabetes mellitus without complications; Z11.59 Encounter for screening for other viral diseases
CPT/HCPCS: 36415; 70450; 70496; 70498; 80048; 80053; 80061; 80305; 80320; 82962; 83036; 83735; 85025; 85610; 85730; 87635; 93005; 93306; 96361; 96374; 97110; 97116; 97163; 97167; 97530; 99285; 99291; A9270; J1650; Q9967

== ENCOUNTER 2021-07-22 04:55 | Emergency (ER) | payer OTHER, MEDICAID, SELFPAY ==
[2019-10-15 22:15] VITALS: BMI 53.1
[2021-07-22] VITALS (8 sets, daily range): BP systolic 151–265; BP diastolic 91–160; PULSE 92–125; RESP 16–24; O2SAT 97–99; BMI 48.7
--- NOTE | 2021-07-22 04:56 | ED.DENTAL ---
HPI - Dental/Oral General Chief complaint: Dental/Oral Stated complaint: dental abcess, right side face swollen Time Seen by Provider: 07/22/21 04:56 History of Present Illness HPI Narrative: 31-year-old female smoker with history of diabetes, hypertension and prior stroke presents with a chief complaint of a dental fracture few days ago and subsequent rapid and significant swelling of her right lower jaw. She is having significant pain and difficulty opening her mouth and therefore eating and drinking less than normal. She admits that she has not been taking her blood pressure or diabetic meds either. Her brother just 2 days ago and she admits that this is likely contributing to her difficulty in managing herself. To complicate things further she was playing catch with a baseball with her kid and was struck in the face by baseball in the same location that she had facial swelling from the dental abscess. She she denies nausea or vomiting. She has had no fever but admits to chills. She denies any blurred vision or trouble with speech. She denies abdominal pain. Related Data Home Medications Medication Instructions Recorded Confirmed Adult Aspirin EC Low Strength 81 mg PO DAILY 07/22/21 07/22/21 lisinopril 10 mg PO DAILY 07/22/21 07/22/21 metformin 500 mg PO BID 07/22/21 07/22/21 Previous Rx's Medication Instructions Recorded VIT#96/FERROUS FUM/FA 1 tab PO Q DAY #90 02/11/11 ( Tablet) clindamycin HCl 300 mg capsule 300 mg PO Q8H #30 cap 07/22/21 ketorolac 10 mg tablet 10 mg PO Q6H PRN #20 tab 07/22/21 Allergies Allergy/AdvReac Type Severity Reaction Status Date / Time Penicillins Allergy Unknown Rash Verified 10/16/19 14:04 hydrocodone AdvReac Unknown Nausea Verified 10/16/19 14:04 Review of Systems Review of Systems Narrative: GENERAL: See HPI HEENT: See HPI RESPIRATORY: Denies dyspnea, cough, wheezing, hemoptysis, sputum. CARDIOVASCULAR: Denies chest pain, palpitations, orthopnea, edema, GASTROINTESTINAL: Denies nausea, vomiting, abdominal pain, diarrhea, constipation, melena. : Denies dysuria, frequency, incontinence, hematuria, urinary retention. MUSCULOSKELETAL: denies weakness, joint pain, or bony pain SKIN: Denies rash, skin lesions, or other NEUROLOGIC: Denies weakness, headache, numbness, change in speech, confusion, seizures, incoordination. PSYCHIATRIC: No concerning psychosocial issues. 12 point review of systems is negative except for those stated above Patient History Medical History Hypertension Tobacco dependence Surgical History No history of previous surgery Family History Mother CVA (cerebral vascular accident) Father Heart disease Social History household members: spouse and children Smoking Status: Current every day smoker Smoking Status: Current every day smoker alcohol intake frequency: 0-2 drinks per day Substance Use Type: does not use Exam Narrative Exam Narrative: GENERAL: [31] year old patient appears stated age. Well-developed patient, in mild distress. Tearful, clearly uncomfortable HEAD: Atraumatic. Normocephalic. EYES: Pupils equal round and reactive. Extraocular motions intact. No scleral icterus. No injection or drainage. ENT: Significant right mandibular pain and swelling, it is tense and indurated with erythema and even ecchymosis. Intraoral exam demonstrates poor dentition throughout with dental fractures in the right lower molar, there is no obvious or palpable abscess internally. Nose without bleeding, purulent drainage. Throat without erythema, tonsillar hypertrophy or exudate. Airway patent. NECK: Trachea midline. Non tender CARDIOVASCULAR: Tachycardic but regular rhythm without murmurs, gallops, or rubs. RESPIRATORY: Clear to auscultation. Breath sounds equal bilaterally. No wheezes, rales, or rhonchi. GASTROINTESTINAL: Abdomen soft, non-tender, nondistended. EXTREMITIES: No edema or joint tenderness. BACK: Nontender without deformity or crepitance. No flank tenderness. NEURO: AOx3. SKIN: No rash or erythema of visible areas Initial Vital Signs Initial Vital Signs: Vital Signs Pulse Rate 125 H 07/22/21 05:02 Respiratory Rate 20 07/22/21 05:02 Blood Pressure 265/160 H 07/22/21 05:02 Pulse Oximetry 99 07/22/21 05:02 Course Orders Ordered: ED Orders 07/22/21 05:05 CT facial bones w con Stat 07/22/21 05:10 A1C [Hemoglobin A1C% w Est Avg Glu] Stat CBC Auto Diff [Complete Blood Count AUTO DIFF] Stat CMP [Comprehensive Metabolic Panel] Stat HCG Quantitative /Beta subunit Stat Lactate (Lactic Acid) Stat 07/22/21 05:15 Blood Culture Stat 07/22/21 06:05 Urine Culture Stat Urine Microscopic Stat 07/22/21 06:20 COVID19 -Nasal RAPID/Pre-Proc Stat Clindamycin Phosphate (Cleocin) 600 mg in 50 mls @ 50 mls/hr IV Q8H EDUARDO Last Infusion: 07/22/21 05:45 Dose: Infused Documented by: Discontinued Medications Sodium Chloride (Normal Saline 0.9%) 1,000 mls @ 1,000 mls/hr IV BOLUS ONE Stop: 07/22/21 06:01 Last Titration: 07/22/21 06:51 Dose: Infused Documented by: Sodium Chloride (Normal Saline 0.9%) 1,000 mls @ 1,000 mls/hr IV BOLUS ONE Stop: 07/22/21 07:09 Last Admin: 07/22/21 06:51 Dose: 1,000 mls/hr Documented by: Insulin Human Regular (Insulin Regular 100 Unit/Ml 3 Ml Vial) 10 unit SUBCUT NOW ONE Stop: 07/22/21 06:31 Last Admin: 07/22/21 07:00 Dose: Not Given Documented by: Insulin Human Regular (Insulin Regular 100 Unit/Ml 3 Ml Vial) 6 unit SUBCUT NOW ONE Stop: 07/22/21 06:39 Last Admin: 07/22/21 06:39 Dose: 6 unit Documented by: Ketorolac Tromethamine (Ketorolac 30 Mg/Ml Vial) 15 mg IV NOW ONE Stop: 07/22/21 05:03 Last Admin: 07/22/21 05:11 Dose: 15 mg Documented by: Labetalol HCl (Labetalol 20 Mg/4 Ml Syringe) 20 mg IV NOW ONE Stop: 07/22/21 06:31 Last Admin: 07/22/21 06:35 Dose: 20 mg Documented by: Vital Signs Vital signs: Vital Signs - 8 hr 07/22/21 05:02 07/22/21 05:30 07/22/21 05:31 Pulse Rate 122 H 114 H 114 H Respiratory Rate 20 Blood Pressure 265/160 H 210/127 H Pulse Oximetry 99 99 98 07/22/21 06:08 07/22/21 06:30 07/22/21 06:47 Pulse Rate 117 H 117 H 99 H Respiratory Rate 16 Blood Pressure 220/123 H 199/116 H 151/91 H Pulse Oximetry 99 98 97 07/22/21 06:58 Pulse Rate 93 H Respiratory Rate Blood Pressure 151/91 H Pulse Oximetry MDM - Dental/Oral Lab Data Result diagrams: 07/22/21 05:10 07/22/21 05:10 Labs: Lab Results 07/22/21 07/22/21 07/22/21 Range/Units 05:10 05:10 05:10 WBC 10.9 (4.5-11.0) X10^3/uL RBC 6.14 H (4.0-5.2) X10^6/uL Hgb 18.8 H (12.0-16.0) g/dL Hct 56.2 H (36-46) % MCV 91.5 (80-100) fL MCH 30.6 (26-34) PG MCHC 33.5 (30-36) % RDW 14.1 (11.6-14.8) % Plt Count 193 (150-400) X10^3/uL Neut % (Auto) 52.7 (50-75) % Lymph % (Auto) 37.0 (25-40) % [place] % (Auto) 9.1 (3-14) % Eos % (Auto) 0.4 L (2-4) % Baso % (Auto) 0.8 (0-2) % Neut # (Auto) 5700 (5576-8841) /uL Lymph # (Auto) 4000 (7498-6967) /uL [place] # (Auto) 1000 H (0-900) /uL Eos # (Auto) 0 (0-450) /uL Baso # (Auto) 100 (0-100) /uL Plt Morphology Comment * RBC Morphology Normal morphology Sodium 134 L (137-145) mmol/L Potassium 3.5 (3.4-5.1) mmol/L Chloride 100 (98-107) mmol/L Carbon Dioxide 24 (22-32) mmol/L BUN 10 (7-17) mg/dL Creatinine 0.76 (0.52-1.04) mg/dL Estimated GFR > 60 (>60) mL/min BUN/Creatinine Ratio 13.2 (6-22) Glucose 552 H* (70-100) mg/dL Hemoglobin A1c (4.0-6.0) % Lactate 2.7 H (0.7-2.1) mmol/L Calcium 8.3 L (8.4-10.2) mg/dL Total Bilirubin 0.6 (0.2-1.3) mg/dL AST 22 (14-36) IU/L ALT 30 (<35) IU/L Alkaline Phosphatase 117 (38-126) U/L Total Protein 7.6 (6.3-8.2) g/dL Albumin 3.9 (3.5-5.0) g/dL Globulin 3.7 (1.7-4.1) g/dL Albumin/Globulin Ratio 1.1 (1.0-2.8) HCG, Quant mIU/mL Urine RBC (0-5/HPF) Urine WBC (0-5/HPF) Ur Squamous Epith Cells (0-5/HPF) Urine Bacteria (None) Ur Culture Indicated? SARS-CoV-2 (PCR) (Negative) 07/22/21 07/22/21 07/22/21 Range/Units 05:10 05:10 06:05 WBC (4.5-11.0) X10^3/uL RBC (4.0-5.2) X10^6/uL Hgb (12.0-16.0) g/dL Hct (36-46) % MCV (80-100) fL MCH (26-34) PG MCHC (30-36) % RDW (11.6-14.8) % Plt Count (150-400) X10^3/uL Neut % (Auto) (50-75) % Lymph % (Auto) (25-40) % [place] % (Auto) (3-14) % Eos % (Auto) (2-4) % Baso % (Auto) (0-2) % Neut # (Auto) (5014-8861) /uL Lymph # (Auto) (8490-8472) /uL [place] # (Auto) (0-900) /uL Eos # (Auto) (0-450) /uL Baso # (Auto) (0-100) /uL Plt Morphology Comment RBC Morphology Sodium (137-145) mmol/L Potassium (3.4-5.1) mmol/L Chloride (98-107) mmol/L Carbon Dioxide (22-32) mmol/L BUN (7-17) mg/dL Creatinine (0.52-1.04) mg/dL Estimated GFR (>60) mL/min BUN/Creatinine Ratio (6-22) Glucose (70-100) mg/dL Hemoglobin A1c > 14.0 H (4.0-6.0) % Lactate (0.7-2.1) mmol/L Calcium (8.4-10.2) mg/dL Total Bilirubin (0.2-1.3) mg/dL AST (14-36) IU/L ALT (<35) IU/L Alkaline Phosphatase (38-126) U/L Total Protein (6.3-8.2) g/dL Albumin (3.5-5.0) g/dL Globulin (1.7-4.1) g/dL Albumin/Globulin Ratio (1.0-2.8) HCG, Quant < 2.4 mIU/mL Urine RBC 1-5/hpf (0-5/HPF) Urine WBC 0-1/hpf (0-5/HPF) Ur Squamous Epith Cells 1-5 /hpf (0-5/HPF) Urine Bacteria Many (>30) H (None) Ur Culture Indicated? Specimen cultured SARS-CoV-2 (PCR) (Negative) 07/22/21 Range/Units 06:20 WBC (4.5-11.0) X10^3/uL RBC (4.0-5.2) X10^6/uL Hgb (12.0-16.0) g/dL Hct (36-46) % MCV (80-100) fL MCH (26-34) PG MCHC (30-36) % RDW (11.6-14.8) % Plt Count (150-400) X10^3/uL Neut % (Auto) (50-75) % Lymph % (Auto) (25-40) % [place] % (Auto) (3-14) % Eos % (Auto) (2-4) % Baso % (Auto) (0-2) % Neut # (Auto) (5709-2398) /uL Lymph # (Auto) (9943-1504) /uL [place] # (Auto) (0-900) /uL Eos # (Auto) (0-450) /uL Baso # (Auto) (0-100) /uL Plt Morphology Comment RBC Morphology Sodium (137-145) mmol/L Potassium (3.4-5.1) mmol/L Chloride (98-107) mmol/L Carbon Dioxide (22-32) mmol/L BUN (7-17) mg/dL Creatinine (0.52-1.04) mg/dL Estimated GFR (>60) mL/min BUN/Creatinine Ratio (6-22) Glucose (70-100) mg/dL Hemoglobin A1c (4.0-6.0) % Lactate (0.7-2.1) mmol/L Calcium (8.4-10.2) mg/dL Total Bilirubin (0.2-1.3) mg/dL AST (14-36) IU/L ALT (<35) IU/L Alkaline Phosphatase (38-126) U/L Total Protein (6.3-8.2) g/dL Albumin (3.5-5.0) g/dL Globulin (1.7-4.1) g/dL Albumin/Globulin Ratio (1.0-2.8) HCG, Quant mIU/mL Urine RBC (0-5/HPF) Urine WBC (0-5/HPF) Ur Squamous Epith Cells (0-5/HPF) Urine Bacteria (None) Ur Culture Indicated? SARS-CoV-2 (PCR) Negative (Negative) Urine Dip Bedside Urine Glucose 1000 mg/dl Bedside Urine Bilirubin - Negative Bedside Urine Ketone - Negative Urine Specific [place] 1.010 Bedside Urine Occult Blood +++ Bedside Urine pH 6.0 Bedside Urine Protein +/- 15 Bedside Urine Urobilinogen - Negative Bedside Urine Nitrite - Negative Bedside Urine Leukocytes - Negative Esterase Imaging Data CT Facial Bones: Radiologist's Impression: Right lower mandible periodontal abscess MDM Narrative Medical decision making narrative: 31F with multiple comorbidities presents with a chief complaint of severe right lower jaw pain and swelling after breaking a tooth a few days ago. She recently lost her brother and the combination of these 2 events of led her to become medically noncompliant and as a result had significantly elevated blood pressure and blood sugars. I told her very early on my plan was to admit her to CT blood pressure, blood glucose and pain regarding her abscess under control. We had extensive discussion at the bedside and patient understands my concern including the risks of leaving which include stroke, permanent disability and potentially even . That being said she would still prefer to leave, stating that she has too many things to do at home to plan for her brother's . She understands that she may return at any point without any fear of pushed back or poor treatment. She has had questions answered to her apparent satisfaction. Discharge Plan Departure Patient Disposition: Left Against Medical Advice Clinical Impression: Abscess, dental, HTN (hypertension), Acute hyperglycemia Instructions: Tooth Abscess, DI for Dental Pain Activity Restrictions/Additional Instructions: *You have been diagnosed with [ dental abscess, hyperglycemia, and hypertension. As we discussed, I really think you'd be best off to stay in the hospital, but I completely understand that your circumstances are difficult. I'm sorry to hear about your brother.] *What to do: *Please continue to take your regular medications as directed. [x ] New medication prescriptions sent to your pharmacy: [ [facility]] [ ] New medication written as a paper prescription [ ] No new medications given *Please follow up with your primary care provider in 2-3 days, call for an appointment. Let them know you were seen in the Emergency Department and that we ask that you be seen in follow up. We will electronically transmit a record of today's note if your PCP is in our system *As we discussed, if you have any change in your plans and would like to come back, please do so without any fear of pushback from us. *If you do not have a primary care provider please contact the [facility] Resource line at [phone]. They will ask some questions about your medical history and help get you set up with a doctor in the community. *Return to Emergency Department if you should have any new, worsening or concerning symptoms, such as [fever greater than 101 F, shaking chills, worsening pain, persistent vomiting or other bothersome symptoms] Prescriptions: New clindamycin HCl 300 mg capsule 300 mg PO Q8H Qty: 30 0RF ketorolac 10 mg tablet 10 mg PO Q6H PRN (Reason: pain) Qty: 20 0RF No Action VIT#96/FERROUS FUM/FA ( Tablet) 1 tab PO Q DAY Qty: 90 3RF Adult Aspirin EC Low Strength 81 mg 81 mg PO DAILY 0RF metformin 500 mg 500 mg PO BID 0RF lisinopril 10 mg 10 mg PO DAILY 0RF Stand Alone Forms: Against Medical Advice
--- NOTE | 2021-07-22 05:05 | DI.CT.S_ITS ---
PROCEDURE: CT FACIAL BONES W CON INDICATIONS: dental abscess plus hit in face by baseball, pain and swelli TECHNIQUE: After the administration of intravenous contrast, 2.5 mm axial sections acquired from the mid-neck to the frontal sinuses, with coronal and sagittal reformats. For radiation dose reduction, the following was used: automated exposure control, adjustment of mA and/or kV according to patient size. COMPARISON: None. FINDINGS: Image quality: Excellent. Soft tissues: Soft tissue swelling noted in the right face adjacent to the body of the mandible. There is a small, approximately 8 millimeter in maximum diameter fluid collection with peripheral enhancement adjacent to the right mandible. Fluid collection is adjacent to right lower 1st molar. Periapical lucency noted adjacent to the right lower 1st molar. Enlarged bilateral level 2 neck lymph nodes are noted which are likely reactive. Vascular: Visualized vascular structures appear patent throughout. Bony vascular foramina and canals appear normal. Bones: Facial bones appear intact, without fractures, erosions, or destruction. Visualized portions of the skull base and auditory canals also appear normal. Numerous absent teeth. Periapical lucencies noted adjacent to numerous teeth. Multiple dental caries. Sinuses: Paranasal sinuses are aerated without fluid levels, mucosal thickening, or mucoceles. Mastoid air cells are aerated. IMPRESSION: 1. No fracture. 2. Extensive periodontal disease, dental caries and multiple absent teeth. 3. Cellulitis involving the right face soft tissues adjacent to the right mandible. 4. 8 millimeter right facial abscess likely related to right lower 1st molar periodontal abscess. Dictated by: Taylor Madden MD, PhD on 07/22/2021 at 8:02 Approved by: Taylor Madden MD, PhD on 07/22/2021 at 8:14
[2021-07-22] MEDS: CLINDAMYCIN 600 MG/50 ML PIGGYBACK 50 MG IV (05:10)
[2021-07-22] MEDS: SODIUM CHLORIDE 0.9% 1,000 ML 1000 ML IV ×2 (05:10→06:51)
[2021-07-22] MEDS: KETOROLAC 30 MG/ML VIAL 15 MG IV (05:11)
[2021-07-22 05:37] LABS: Basophils Absolute Auto 100 /uL (0-100); Basophils Percent Auto 0.8 % (0-2); Eosinophils Absolute Auto 0 /uL (0-450); Eosinophils Percent Auto 0.4 % (2-4); Hematocrit 56.2 % (36-46); Hemoglobin 18.8 g/dL (12.0-16.0); Lymphocytes Absolute Auto 4000 /uL (1100-4500); Mean Corpuscular HGB Conc 33.5 % (30-36); Mean Corpuscular Hemoglobin 30.6 PG (26-34); Mean Corpuscular Volume 91.5 fL (80-100); Monocytes Absolute Auto 1000 /uL (0-900); Monocytes Percent Auto 9.1 % (3-14); Neutrophils Absolute Auto 5700 /uL (1500-7000); Neutrophils Percent Auto 52.7 % (50-75); Platelet Count 193 X10^3/uL (150-400); Red Blood Cell Count 6.14 X10^6/uL (4.0-5.2); Red Cell Distribution Width 14.1 % (11.6-14.8); White Blood Cell Count 10.9 X10^3/uL (4.5-11.0)
[2021-07-22 05:38] LABS: Add Manual Diff / Slide Review SLIDE REVIEW
[2021-07-22 05:42] LABS: Alanine Aminotransferase 30 IU/L (<35); Albumin 3.9 g/dL (3.5-5.0); Albumin Globulin Ratio 1.1 (1.0-2.8); Alkaline Phosphatase 117 U/L (38-126); Aspartate Aminotransferase 22 IU/L (14-36); BUN Creatinine Ratio 13.2 (6-22); Bilirubin Total 0.6 mg/dL (0.2-1.3); Blood Urea Nitrogen 10 mg/dL (7-17); Calcium 8.3 mg/dL (8.4-10.2); Carbon Dioxide 24 mmol/L (22-32); Chloride 100 mmol/L (98-107); Estimated Glomerular Filt Rate > 60 mL/min (>60); Globulin 3.7 g/dL (1.7-4.1); HEMOLYSIS 20 (0-50); Potassium 3.5 mmol/L (3.4-5.1); Sodium 134 mmol/L (137-145); Total Protein 7.6 g/dL (6.3-8.2)
[2021-07-22 05:48] LABS: Glucose 552 mg/dL (70-100)
[2021-07-22 05:57] LABS: Lactate (Lactic Acid) 2.7 mmol/L (0.7-2.1)
[2021-07-22 06:06] LABS: RBC Morphology Normal Morphology
[2021-07-22 06:16] LABS: HCG Quantitative /Beta subunit < 2.4 mIU/mL
[2021-07-22 06:32] LABS: RBC Urine 1-5/HPF (0-5/HPF); WBC Urine 0-1/HPF (0-5/HPF)
[2021-07-22 06:33] LABS: Bacteria Urine Many (>30); Culture Indicated Urine Specimen Cultured; Squamous Epithelial Cell Urine 1-5 /HPF (0-5/HPF)
[2021-07-22] MEDS: LABETALOL 20 MG/4 ML SYRINGE IV (06:35)
[2021-07-22] MEDS: INSULIN REGULAR 100 UNIT/ML 3 ML VIAL 6 UNIT SUBCUT (06:39)
[2021-07-22 06:47] LABS: COVID19 -Nasal RAPID Negative (Negative)
[2021-07-22 06:52] LABS: Hemoglobin A1C% w Est Avg Glu > 14.0 % (4.0-6.0)
--- NOTE | 2021-07-22 06:59 | PC.NURSE ---
pt resting on stretcher, states the pressure in her jaw is gone and it feels much better, waiting for ct medication results for re-evaluation
[2021-07-22 07:23] LABS: Reflexed Lactate in 2 Hours Y
== END 2021-07-22 07:43 | disposition left against medical advice (07) ==
PROVIDERS: Emergency Provider Emergency Medicine
DX: K04.7 Periapical abscess without sinus (principal); I10 Essential (primary) hypertension; R73.9 Hyperglycemia, unspecified
CPT/HCPCS: 36415; 70487; 80053; 81003; 81015; 82962; 83036; 83605; 84702; 85025; 87040; 87077; 87086; 87186; 87635; 96361; 96365; 96372; 96375; 99284; C9803; J1885; Q9967

== ENCOUNTER → 2022-08-18 11:04 | Outpatient (CLI) | payer OTHER, MEDICAID, SELFPAY ==
[2019-10-15 22:15] VITALS: BMI 53.1
[2022-08-18 19:52] LABS: Add Manual Diff / Slide Review NO; Basophils Absolute Auto 0 /uL (0-100); Basophils Percent Auto 0.4 % (0-2); Eosinophils Absolute Auto 100 /uL (0-450); Eosinophils Percent Auto 0.7 % (2-4); Hematocrit 56.1 % (36-46); Hemoglobin 19.1 g/dL (12.0-16.0); Lymphocytes Absolute Auto 4500 /uL (1100-4500); Lymphocytes Percent Auto 46.9 % (25-40); Mean Corpuscular HGB Conc 34.1 % (30-36); Mean Corpuscular Hemoglobin 30.4 PG (26-34); Mean Corpuscular Volume 89.3 fL (80-100); Monocytes Absolute Auto 700 /uL (0-900); Monocytes Percent Auto 7.7 % (3-14); Neutrophils Absolute Auto 4200 /uL (1500-7000); Neutrophils Percent Auto 44.3 % (50-75); Platelet Count 210 X10^3/uL (150-400); Red Blood Cell Count 6.29 X10^6/uL (4.0-5.2); Red Cell Distribution Width 14.2 % (11.6-14.8); White Blood Cell Count 9.5 X10^3/uL (4.5-11.0)
[2022-08-18 20:01] LABS: Alanine Aminotransferase 34 IU/L (<35); Albumin 3.8 g/dL (3.5-5.0); Albumin Globulin Ratio 1.1 (1.0-2.8); Alkaline Phosphatase 106 U/L (38-126); Aspartate Aminotransferase 66 IU/L (14-36); BUN Creatinine Ratio 24.7 (6-22); Bilirubin Total 0.7 mg/dL (0.2-1.3); Blood Urea Nitrogen 19 mg/dL (7-17); Carbon Dioxide 23 mmol/L (22-32); Chloride 104 mmol/L (98-107); Cholesterol 83 mg/dL (140-199); Estimated Glomerular Filt Rate > 60 mL/min (>60); Globulin 3.6 g/dL (1.7-4.1); Glucose 202 mg/dL (70-100); HDL Cholesterol 30 mg/dL (40-60); HEMOLYSIS 44 (0-50); LDL Cholesterol Calculated 27 mg/dL (<100); Potassium 4.3 mmol/L (3.4-5.1); Sodium 135 mmol/L (137-145); Total Protein 7.4 g/dL (6.3-8.2); Triglycerides 131 mg/dL (35-150)
[2022-08-18 20:29] LABS: TSH w/ Reflex to FT4 0.51 uIU/mL (0.47-4.68)
[2022-08-18 20:49] LABS: Creatinine Urine Random 191.5 mg/dL
[2022-08-18 21:15] LABS: Microalbumin Urine Random 20.7 mg/dL (0-1.6)
[2022-08-20 10:55] LABS: x Labcorp Estim. Avg Glu (eAG) 321 mg/dL (.); x Labcorp Hemoglobin A1c 12.8 % (4.8-5.6)
== END ==
PROVIDERS: PCP Physician Assistant; Visit Provider Physician Assistant
DX: E11.59 Type 2 diabetes mellitus with other circulatory complications (principal); E66.01 Morbid (severe) obesity due to excess calories; I10 Essential (primary) hypertension; Z68.43 Body mass index [BMI] 50.0-59.9, adult
CPT/HCPCS: 80053; 80061; 82043; 82570; 83036; 84443; 85025

== ENCOUNTER 2024-01-02 11:20 | Observation (INO) | payer OTHER, MEDICAID, SELFPAY ==
[2019-10-15 22:15] VITALS: BMI 53.1
[2024-01-02] VITALS (23 sets, daily range): BP systolic 135–186; BP diastolic 93–113; PULSE 96–120; RESP 13–25; TEMP 36.6–37.9; O2SAT 92–98; BMI 41.8
[2024-01-02 11:59] LABS: Add Manual Diff / Slide Review NO; Basophils Absolute Auto 100 /uL (0-100); Basophils Percent Auto 0.8 % (0-2); Eosinophils Absolute Auto 100 /uL (0-450); Hematocrit 52.6 % (36-46); Hemoglobin 17.8 g/dL (12.0-16.0); Lymphocytes Absolute Auto 2800 /uL (1100-4500); Lymphocytes Percent Auto 25.6 % (25-40); Mean Corpuscular HGB Conc 33.8 % (30-36); Mean Corpuscular Hemoglobin 30.3 PG (26-34); Mean Corpuscular Volume 89.6 fL (80-100); Monocytes Absolute Auto 900 /uL (0-900); Monocytes Percent Auto 8.6 % (3-14); Neutrophils Absolute Auto 7000 /uL (1500-7000); Platelet Count 289 X10^3/uL (150-400); Red Blood Cell Count 5.87 X10^6/uL (4.0-5.2); Red Cell Distribution Width 13.9 % (11.6-14.8)
--- NOTE | 2024-01-02 12:02 | ED_ITS ---
HPI - General Adult General Chief complaint: Abdominal Pain Stated complaint: constipation t-3 Time Seen by Provider: 01/02/24 11:40 Source: patient Mode of arrival: Ambulatory History of Present Illness HPI narrative: 33-year-old woman with a history of hypertension, hyperlipidemia, diabetes with a BMI of 42 presents with severe abdominal pain and complaints of no bowel movement for 10 days. She is exceedingly uncomfortable and finding a difficult position to be in. She notes she is passing small amounts of gas. She has a low-grade fever on arrival and is slightly tachycardic. She complains that she is nauseated but no vomiting, no chest pain or palpitations. Oral intake has been decreased over the last number of days because of the severity of the abdominal pain. Related Data Home Medications Medication Instructions Recorded Confirmed lancets 30 gauge (TRUEplus Lancets) #100 ea 09/03/22 01/02/24 Previous Rx's Medication Instructions Recorded aspirin 81 mg tablet,delayed 81 mg PO DAILY #90 tabs 07/09/22 release (Adult Aspirin Regimen) dapagliflozin propanediol 10 mg 10 mg PO DAILY #90 tabs 09/03/22 tablet (Farxiga) losartan 50 mg tablet 50 mg PO DAILY #90 tabs 09/29/22 amlodipine 5 mg tablet 5 mg PO DAILY #90 tabs 05/31/23 atorvastatin 40 mg tablet 40 mg PO DAILY #90 tabs 05/31/23 metformin 1,000 mg tablet,extended 1,000 mg PO BID #180 tabs 05/31/23 release 24hr (osmotic) blood sugar diagnostic (Blood #300 ea 09/08/23 Glucose Test strips) blood-glucose meter (Blood Glucose #1 ea 09/08/23 Monitoring kit) lancets (Lancets, Super Thin) #300 ea 09/08/23 Allergies Allergy/AdvReac Type Severity Reaction Status Date / Time Penicillins Allergy Unknown Rash Verified 05/10/23 09:45 hydrocodone AdvReac Unknown Nausea Verified 05/10/23 09:45 COCONUT OIL Allergy Unknown SKIN HIVES Uncoded 05/10/23 09:45 lisinopril AdvReac Intermediate Cough Uncoded 05/10/23 09:45 losartan AdvReac Intermediate cough, Uncoded 05/10/23 09:45 dizziness Review of Systems Review of Systems Narrative: Pertinent positive and negative findings as per HPI Patient History Medical History Paralysis Stroke (~2019) Tobacco dependence Hypertension (~2018) Surgical History History of section No history of previous surgery Family History Mother Stroke Cancer Diabetes mellitus Hyperlipidemia Hypertension Father Heart disease Epileptic seizure Brother Hyperlipidemia Brother Leukemia Sister Hypertension Grandfather Stroke Grandmother Cancer Social History household members: spouse and children Smoking Status: Current every day smoker alcohol intake: never Smoking Status: Current every day smoker alcohol intake frequency: 0-2 drinks per day Substance Use Type: does not use Exam Initial Vital Signs Initial Vital Signs: Vital Signs Temperature 100.3 F H 01/02/24 11:26 Pulse Rate 115 H 01/02/24 11:26 Respiratory Rate 18 01/02/24 11:26 Blood Pressure 186/112 H 01/02/24 11:26 Pulse Oximetry 96 01/02/24 11:26 Oxygen Delivery Method Room Air 01/02/24 11:26 General: Chronically ill-appearing in significant distress, flushed, diaphoretic significant abdominal pain she is able to cooperate with exam HEENT: Moist mucous membranes, normal sclera with reactive pupils, Respiratory: Lungs are clear to auscultation, no wheezing no rales no rhonchi. Full and symmetrical air movement Cardiac: Tachycardic without murmurs Abdomen: BMI of 42, obese, mild distention, tenderness diffusely with increased tenderness in the lower quadrants. No rebound or guarding. No flank pain Skin: Face is flushed, mildly diaphoretic, no obvious areas of cellulitis or skin breakdown Neurologic: Grossly neurologically intact with no obvious asymmetries or abnormalities Extremities: No trauma, Psych: Cooperative, appropriate insight and affect Course Orders Ordered: ED Orders 01/02/24 11:45 Complete Blood Count AUTO DIFF Stat Comprehensive Metabolic Panel Stat Lactate (Lactic Acid) Stat Lipase Stat 01/02/24 12:03 CT abdomen pelvis w con Stat 01/02/24 12:08 Blood Culture Stat 01/02/24 17:00 Urinalysis and Microscopic Stat Urine Culture Stat 01/02/24 17:47 Education, smoking cessation ONGOING 01/03/24 Basic Metabolic Panel Routine Complete Blood Count AUTO DIFF Routine Acetaminophen (Acetaminophen 325 Mg Tablet) 650 mg PO Q6H PRN PRN Reason: Fever/Mild Pain (1-3) Hydrocodone Bitart/Acetaminophen (Hydrocodone/Acet 5/325 Tablet) 1 tab PO Q4H PRN PRN Reason: Pain, Moderate (4-6) Atorvastatin Calcium (Atorvastatin 20 Mg Tablet) 40 mg PO DAILY EDUARDO Hydromorphone HCl (Hydromorphone 0.5 Mg Inj) 0.5 mg IV Q15MIN PRN PRN Reason: Pain, Last Admin: 01/02/24 19:01 Dose: 0.5 mg Documented By: Admin: 01/02/24 17:05 Dose: 0.5 mg Documented By: ESV(2) Admin: 01/02/24 15:35 Dose: 0.5 mg Documented By: ESV(2) Admin: 01/02/24 12:09 Dose: 0.5 mg Documented By: ESV(2) Lactated Ringer's (Lactated Ringers) 1,000 mls @ 75 mls/hr IV CONT EDUARDO Last Admin: 01/02/24 18:59 Dose: 75 mls/hr Documented By: ESV Dextrose (D10w) 100 mls @ 999 mls/hr IV PRN PRN PRN Reason: Hypoglycemia Ciprofloxacin (Cipro) 400 mg in 200 mls @ 200 mls/hr IV Q12H EDUARDO Metronidazole (Flagyl) 500 mg in 100 mls @ 100 mls/hr IV Q8H EDUARDO Ibuprofen (Ibuprofen 600 Mg Tablet) 600 mg PO Q6H PRN PRN Reason: Fever/Mild Pain (1-3) Insulin Glargine (Insulin Glargine 100 Unit/Ml 3ml Pen) 20 unit SUBCUT 2100 COUNTS INCLUDE 234 BEDS AT THE [facility] Insulin Human Lispro (Insulin Lispro 100 Unit/Ml 3ml Vial) 0 unit SUBCUT ACHS EDUARDO; Protocol Naloxone HCl (Naloxone 0.4 Mg/Ml Vial) 0.2 mg IV Q2MIN PRN PRN Reason: Opiate Reversal Ondansetron HCl (Ondansetron 4 Mg/2 Ml Inj) 4 mg IV NOW PRN PRN Reason: Nausea And Vomiting Last Admin: 01/02/24 12:09 Dose: 4 mg Documented By: ESV(2) Ondansetron HCl (Ondansetron 4 Mg Odt) 4 mg PO NOW PRN PRN Reason: Nausea And Vomiting Discontinued Medications Sodium Chloride (Normal Saline 0.9%) 1,000 mls @ 1,000 mls/hr IV BOLUS ONE Stop: 01/02/24 13:01 Last Infusion: 01/02/24 13:27 Dose: Infused Documented By: ESV(2) Admin: 01/02/24 12:09 Dose: 1,000 mls/hr Documented By: ESV(2) Ceftriaxone Sodium 2,000 mg/ (Sodium Chloride) 100 mls @ 200 mls/hr IV NOW ONE Stop: 01/02/24 15:23 Last Infusion: 01/02/24 16:14 Dose: Infused Documented By: ESV(2) Admin: 01/02/24 15:35 Dose: 200 mls/hr Documented By: ESV(2) Metronidazole (Flagyl) 500 mg in 100 mls @ 100 mls/hr IV NOW ONE Stop: 01/02/24 16:21 Last Infusion: 01/02/24 17:32 Dose: Infused Documented By: ESV(2) Admin: 01/02/24 16:14 Dose: 100 mls/hr Documented By: ESV(2) Vital Signs Vital signs: Vital Signs - 8 hr 01/02/24 13:00 01/02/24 13:30 01/02/24 14:00 Temperature 98.9 F Pulse Rate 102 H 105 H 104 H Respiratory Rate 25 H 21 22 Blood Pressure Pulse Oximetry 95 94 94 Oxygen Delivery Method Room Air 01/02/24 14:30 01/02/24 14:49 01/02/24 14:49 Temperature Pulse Rate 103 H 102 H Respiratory Rate 24 24 Blood Pressure 144/93 H Pulse Oximetry 98 Oxygen Delivery Method 01/02/24 15:00 01/02/24 15:30 01/02/24 16:00 Temperature Pulse Rate 100 H 96 H 101 H Respiratory Rate 21 17 17 Blood Pressure Pulse Oximetry 96 98 96 Oxygen Delivery Method 01/02/24 16:08 01/02/24 16:08 01/02/24 16:15 Temperature Pulse Rate 103 H Respiratory Rate 19 Blood Pressure 142/97 H 155/106 H Pulse Oximetry 95 Oxygen Delivery Method 01/02/24 16:15 01/02/24 16:30 01/02/24 16:30 Temperature Pulse Rate 100 H 99 H Respiratory Rate 25 H 13 Blood Pressure 158/107 H Pulse Oximetry 95 96 Oxygen Delivery Method 01/02/24 16:45 01/02/24 16:45 01/02/24 17:06 Temperature Pulse Rate 101 H 100 H Respiratory Rate 13 Blood Pressure 157/98 H Pulse Oximetry 96 98 Oxygen Delivery Method 01/02/24 17:07 Temperature 97.8 F Pulse Rate Respiratory Rate Blood Pressure 135/97 H Pulse Oximetry Oxygen Delivery Method Medical Decision Making Lab Data 01/02/24 11:45 01/02/24 11:45 Labs: Lab Results 01/02/24 01/02/24 Range/Units 11:45 17:00 WBC 11.0 (4.5-11.0) X10^3/uL RBC 5.87 H (4.0-5.2) X10^6/uL Hgb 17.8 H (12.0-16.0) g/dL Hct 52.6 H (36-46) % MCV 89.6 (80-100) fL MCH 30.3 (26-34) PG MCHC 33.8 (30-36) % RDW 13.9 (11.6-14.8) % Plt Count 289 (150-400) X10^3/uL Neut % (Auto) 64.0 (50-75) % Lymph % (Auto) 25.6 (25-40) % [place] % (Auto) 8.6 (3-14) % Eos % (Auto) 1.0 L (2-4) % Baso % (Auto) 0.8 (0-2) % Neut # (Auto) 7000 (5165-7355) /uL Lymph # (Auto) 2800 (4845-2688) /uL [place] # (Auto) 900 (0-900) /uL Eos # (Auto) 100 (0-450) /uL Baso # (Auto) 100 (0-100) /uL Sodium 132 L (137-145) mmol/L Potassium 4.2 (3.4-5.1) mmol/L Chloride 103 (98-107) mmol/L Carbon Dioxide 22 (22-32) mmol/L BUN 16 (7-17) mg/dL Creatinine 0.60 (0.52-1.04) mg/dL Estimated GFR > 60 (>60) mL/min BUN/Creatinine Ratio 26.7 H (6-22) Glucose 398 H (70-100) mg/dL Lactate 1.1 (0.7-2.1) mmol/L Calcium 9.0 (8.4-10.2) mg/dL Total Bilirubin 0.7 (0.2-1.3) mg/dL AST 16 (14-36) IU/L ALT 22 (<35) IU/L Alkaline Phosphatase 138 H (38-126) U/L Total Protein 7.6 (6.3-8.2) g/dL Albumin 3.6 (3.5-5.0) g/dL Globulin 4.0 (1.7-4.1) g/dL Albumin/Globulin Ratio 0.9 L (1.0-2.8) Lipase 214 (23-300) U/L Urine Color Yellow Urine Appearance Cloudy Urine pH 5.0 (4.5-8.0) Ur Specific [place] 1.020 (1.000-1.035) Urine Protein Trace H (Negative) Urine Glucose (UA) 3+ H (Negative) g/dL Urine Ketones Negative (NEGATIVE) Urine Occult Blood 1+ H (Negative) Urine Nitrate Positive H (Negative) Urine Bilirubin Negative (NEGATIVE) Urine Urobilinogen 1.0 (0.2) E.U./dL Ur Leukocyte Esterase Negative (NEGATIVE) Urine RBC 0-1/hpf (0-5/HPF) Urine WBC 0-1/hpf (0-5/HPF) Ur Squamous Epith Cells 1-5 /hpf (0-5/HPF) Urine Bacteria Many (>30) H (None) Ur Culture Indicated? Specimen cultured Vol Urine Centrifuged 10ml (spun) Point of Care Testing Test Results Negative Urine Dip Bedside Urine Glucose Negative Bedside Urine Bilirubin - Negative Bedside Urine Ketone - Negative Urine Specific [place] 1.010 Bedside Urine Occult Blood + Bedside Urine pH 5.5 Bedside Urine Protein +/- 15 Bedside Urine Urobilinogen - Negative Bedside Urine Nitrite + Positive Bedside Urine Leukocytes - Negative Esterase Point of care testing: Point of Care Testing Test Results Negative Urine Dip Bedside Urine Glucose Negative Bedside Urine Bilirubin - Negative Bedside Urine Ketone - Negative Urine Specific [place] 1.010 Bedside Urine Occult Blood + Bedside Urine pH 5.5 Bedside Urine Protein +/- 15 Bedside Urine Urobilinogen - Negative Bedside Urine Nitrite + Positive Bedside Urine Leukocytes - Negative Esterase Imaging Data CT scan - abdomen/pelvis: Radiologist's Impression: PROCEDURE: CT ABDOMEN PELVIS W CON INDICATIONS: abdominal pain TECHNIQUE: After the administration of intravenous contrast, axial sections acquired from the lung bases to the pubic symphysis. Coronal and sagittal reformats were performed. For radiation dose reduction, the following was used: automated exposure control, adjustment of mA and/or kV according to patient size. COMPARISON: [facility], US, PELVIC COMPLETE, 03/21/2013, 21:29. [facility], CR, L-SPINE 2-3 VIEWS, 02/27/2014, 10:44. FINDINGS: Image quality: Diagnostic. Lower Chest: No significant findings. ABDOMEN: Liver: No solid mass. Incidental note is made of focal fatty infiltration adjacent to the falciform ligament, which is not regarded to be pathologic. Gallbladder: No radiopaque gallstones or wall thickening. Biliary ducts: No biliary dilation. Pancreas: No ductal dilation. Spleen: Size is within normal limits. Adrenal Glands: No adrenal nodules. Kidneys and Ureters: No hydronephrosis. No solid mass. No complex renal cystic lesion which requires follow up. Bowel and peritoneum: Abnormal rectal wall thickening can be seen, with surrounding inflammatory change. Just to the right of the rectum, there is a focus of soft tissue density material, as on series 2, image 128 and on series 4, image 96 measuring 4 x 3.3 cm in greatest axial dimension, with a craniocaudal extent of 2.8 cm. There is a moderate amount of free fluid seen within the perirectal/presacral region. No definite free air is seen. A few distal colonic diverticuli can be seen. The more proximal colon is within normal limits. No dilated loops of small bowel are seen. Ventral Wall: No significant ventral hernia. Abdominal Nodes: No retroperitoneal or mesenteric adenopathy by size criteria. Vessels: Aorta and inferior vena cava are normal in size. PELVIS: Pelvic Organs: No adnexal masses are seen on either side. Physiologic cystic changes can be seen of the ovaries. The IUD is seen at its expected location. Bladder: No bladder wall thickening, accounting for underdistention. Pelvic Nodes: No enlarged lymph nodes. Miscellaneous: No inguinal hernias are seen. Bones: No aggressive osseous abnormality. Incidental note is made of a limbus vertebral body involving the anterior superior portion of the L1 vertebral body. Mild levoconvex scoliotic curvature is noted. IMPRESSION: Abnormal rectal wall thickening, with surrounding inflammatory change. Just to the right of the rectum, there is a 4 cm focus of abnormal soft tissue density seen, which may represent a contained perforation. No definite free air is seen. No drainable abscess is seen at this time. Additional findings: L1 limbus type vertebral body Levoconvex lumbar scoliotic curvature IUD Note: Case discussed by telephone with Dr. Best at 1:36 p.m. [place] time on January 02, 2024. Dictated by: Titus James M.D. on 01/02/2024 at 12:29 MDM Narrative Medical decision making narrative: CC: Abdominal pain with no bowel movement for 10 days Complicating co-morbidities: BMI of 42, diabetes, hypertension, hyperlipidemia Data collected from: patient Medical records reviewed: Primary care notes from May and approximately a year ago are reviewed Differential considered: Bowel obstruction, neoplastic process, bowel perforation, acute appendicitis Exam documented above, pertinent findings include: Severe abdominal pain tender lower abdomen without rebound or guarding Lab Test results independently reviewed as above. Pertinent findings: CBC shows a white count of 11 with H&H elevated at 17.8 and 52.6 which is close to her baseline. Platelets are normal at 289 chemistries show normal creatinine, elevated blood glucose, slightly elevated alkaline phosphatase with remaining LFTs unremarkable Lipase is reassuring Imaging studies independently reviewed: CT scan of the abdomen is obtained. Reviewed in real-time with the radiologist with concern for phlegmon perirectally developing no obvious free air and no area of specific abscess that might be accessed via Interventional Radiology Consultations: Discussed with Dr. Isaac, general surgery. He is going to come into examined the patient. Treatments: Zofran, fluids, pain medications. She is started on ceftriaxone and Flagyl. She does have a penicillin allergy Re-evaluations: 325pm pain is much better controlled, patient looks much more comfortable, reviewed CT and lab findings. Informed her that Dr. Isaac was going to come and examine her offer recommendations Discussion: 33-year-old woman with severe lower abdominal/pelvic pain with no bowel movement for [address] scan suggests perirectal abscess or developing infection. No clearly drainable area. Patient is not septic. Antibiotics are initiated, care is discussed with Dr. Isaac, general surgery. We will be admitting the patient with plan for continued IV antibiotics and serial exams. Discussed with Dr. Tobin, hospitalist who a consult regarding her diabetes and hypertension management. Findings reviewed with the patient including recommendations for hospitalization and she agrees at this time. Discharge Plan Departure Patient Disposition: Admitted as Observation Clinical Impression: Acute proctitis Hypertension Qualifiers: Hypertension type: primary hypertension Qualified Code(s): I10 - Essential (primary) hypertension Diabetes Qualifiers: Diabetes mellitus type: type 2 Diabetes mellitus watermelon inspector insulin use: without watermelon inspector use Abdominal pain Qualifiers: Abdominal location: lower abdomen, unspecified Qualified Code(s): R10.30 - Lower abdominal pain, unspecified Admit Date/Time: 01/02/24 17:55 Admit Provider: Errol Isaac
[2024-01-02 12:06] LABS: Alanine Aminotransferase 22 IU/L (<35); Albumin 3.6 g/dL (3.5-5.0); Albumin Globulin Ratio 0.9 (1.0-2.8); Alkaline Phosphatase 138 U/L (38-126); Aspartate Aminotransferase 16 IU/L (14-36); BUN Creatinine Ratio 26.7 (6-22); Bilirubin Total 0.7 mg/dL (0.2-1.3); Blood Urea Nitrogen 16 mg/dL (7-17); Carbon Dioxide 22 mmol/L (22-32); Chloride 103 mmol/L (98-107); Estimated Glomerular Filt Rate > 60 mL/min (>60); Glucose 398 mg/dL (70-100); HEMOLYSIS 16 (0-50); Lipase 214 U/L (23-300); Potassium 4.2 mmol/L (3.4-5.1); Sodium 132 mmol/L (137-145); Total Protein 7.6 g/dL (6.3-8.2)
[2024-01-02] MEDS: ONDANSETRON 4 MG/2 ML INJ IV (12:09)
[2024-01-02] MEDS: HYDROMORPHONE 0.5 MG INJ IV ×5 (12:09→21:29)
[2024-01-02] MEDS: SODIUM CHLORIDE 0.9% 1,000 ML 1000 ML IV (12:09)
[2024-01-02 12:59] LABS: Lactate (Lactic Acid) 1.1 mmol/L (0.7-2.1)
[2024-01-02] MEDS: cefTRIAXone 2,000 MG in SODIUM CHLORIDE 0.9% 100 ML 200 MG IV (15:35)
[2024-01-02] MEDS: metroNIDAZOLE 500 MG/100 ML PIGGYBACK 100 MG IV (16:14)
--- NOTE | 2024-01-02 16:48 | PM.CN ---
History of Present Illness Consult details Date Patient Seen: 01/02/24 Time Patient Seen: 16:48 Chief complaint: constipation t-3 Narrative: Mehreen is a 33-year-old woman who presented to the hospital today for about 24 hours of right lower abdominal pain as well as rectal pain. She notes that she has been constipated for 9 days. She denies noticing any rectal bleeding or mucus discharge. She has never had a colonoscopy. No personal or family history of inflammatory bowel disease. CT shows inflammation around the rectum with a possible phlegmon versus abscess just to the right of the mid to upper rectum. She has a history of hypertension and diabetes for which she takes amlodipine, losartan, dapagliflozin and metformin. Meds Home Medications and Allergies Home Medications Medication Instructions Recorded Confirmed Type aspirin 81 mg tablet,delayed 81 mg PO DAILY #90 tabs 07/09/22 05/10/23 Rx release (Adult Aspirin Regimen) dapagliflozin propanediol 10 mg 10 mg PO DAILY #90 tabs 09/03/22 05/10/23 Rx tablet (Farxiga) lancets 30 gauge (TRUEplus Lancets) #100 ea 09/03/22 05/10/23 History losartan 50 mg tablet 50 mg PO DAILY #90 tabs 09/29/22 05/10/23 Rx amlodipine 5 mg tablet 5 mg PO DAILY #90 tabs 05/31/23 Rx atorvastatin 40 mg tablet 40 mg PO DAILY #90 tabs 05/31/23 Rx metformin 1,000 mg tablet,extended 1,000 mg PO BID #180 tabs 05/31/23 Rx release 24hr (osmotic) blood sugar diagnostic (Blood #300 ea 09/08/23 Rx Glucose Test strips) blood-glucose meter (Blood Glucose #1 ea 09/08/23 Rx Monitoring kit) lancets (Lancets, Super Thin) #300 ea 09/08/23 Rx Allergies Allergy/AdvReac Type Severity Reaction Status Date / Time Penicillins Allergy Unknown Rash Verified 05/10/23 09:45 hydrocodone AdvReac Unknown Nausea Verified 05/10/23 09:45 COCONUT OIL Allergy Unknown SKIN HIVES Uncoded 05/10/23 09:45 lisinopril AdvReac Intermediate Cough Uncoded 05/10/23 09:45 losartan AdvReac Intermediate cough, Uncoded 05/10/23 09:45 dizziness Exam Vital Signs (past 8 hours): - 01/02/24 11:26 01/02/24 11:39 01/02/24 11:43 Temperature 100.3 F H Pulse Rate 115 H 120 H 115 H Respiratory Rate 18 21 Blood Pressure 186/112 H Pulse Oximetry 96 97 97 Oxygen Delivery Method Room Air 01/02/24 11:43 01/02/24 11:45 01/02/24 11:45 Temperature Pulse Rate 111 H Respiratory Rate 20 Blood Pressure 144/106 H 160/106 H Pulse Oximetry 96 Oxygen Delivery Method Room Air 01/02/24 12:00 01/02/24 12:00 01/02/24 12:09 Temperature 100.3 F H Pulse Rate 107 H Respiratory Rate 24 Blood Pressure 166/113 H Pulse Oximetry 97 Oxygen Delivery Method 01/02/24 12:15 01/02/24 12:15 01/02/24 12:30 Temperature Pulse Rate 106 H Respiratory Rate 25 H Blood Pressure 152/101 H 163/101 H Pulse Oximetry 92 Oxygen Delivery Method 01/02/24 12:30 01/02/24 13:00 01/02/24 13:30 Temperature 98.9 F Pulse Rate 109 H 102 H 105 H Respiratory Rate 18 25 H 21 Blood Pressure Pulse Oximetry 93 95 94 Oxygen Delivery Method Room Air 01/02/24 14:00 01/02/24 14:30 01/02/24 14:49 Temperature Pulse Rate 104 H 103 H 102 H Respiratory Rate 22 24 24 Blood Pressure Pulse Oximetry 94 98 Oxygen Delivery Method 01/02/24 14:49 01/02/24 15:00 01/02/24 15:30 Temperature Pulse Rate 100 H 96 H Respiratory Rate 21 17 Blood Pressure 144/93 H Pulse Oximetry 96 98 Oxygen Delivery Method 01/02/24 16:00 01/02/24 16:08 01/02/24 16:08 Temperature Pulse Rate 101 H 103 H Respiratory Rate 17 19 Blood Pressure 142/97 H Pulse Oximetry 96 95 Oxygen Delivery Method Oxygen Delivery Method Room Air Narrative Exam Narrative: Obese Abdomen is tender to palpation in the right lower quadrant with localized peritoneal findings Digital rectal exam was performed and there was no blood or mucus noted Objective Labs 01/02/24 11:45 01/02/24 11:45 Labs: Laboratory Results - last 24 hr 01/02/24 11:45 WBC 11.0 RBC 5.87 H Hgb 17.8 H Hct 52.6 H MCV 89.6 MCH 30.3 MCHC 33.8 RDW 13.9 Plt Count 289 Neut % (Auto) 64.0 Lymph % (Auto) 25.6 [place] % (Auto) 8.6 Eos % (Auto) 1.0 L Baso % (Auto) 0.8 Neut # (Auto) 7000 Lymph # (Auto) 2800 [place] # (Auto) 900 Eos # (Auto) 100 Baso # (Auto) 100 Sodium 132 L Potassium 4.2 Chloride 103 Carbon Dioxide 22 BUN 16 Creatinine 0.60 Estimated GFR > 60 BUN/Creatinine Ratio 26.7 H Glucose 398 H Lactate 1.1 Calcium 9.0 Total Bilirubin 0.7 AST 16 ALT 22 Alkaline Phosphatase 138 H Total Protein 7.6 Albumin 3.6 Globulin 4.0 Albumin/Globulin Ratio 0.9 L Lipase 214 PFSH Medical History Paralysis Stroke (~2019) Tobacco dependence Hypertension (~2018) Surgical History History of section No history of previous surgery Family History Mother Stroke Cancer Diabetes mellitus Hyperlipidemia Hypertension Father Heart disease Epileptic seizure Brother Hyperlipidemia Brother Leukemia Sister Hypertension Grandfather Stroke Grandmother Cancer Social History household members: spouse and children Tobacco & Substance Use Smoking Status: Current every day smoker Assessment & Plan Assessment and plan (1) Acute proctitis: Status: Acute Plan 33-year-old woman with proctitis of uncertain etiology. Possible sources include a low diverticulitis, a high perirectal abscess, ulcerative colitis, rectal cancer or some other form of proctitis. I recommend admission for IV antibiotics. If she does not improve after a few days we should repeat the CT to see if it was more clear where the source of the inflammation is coming from. If she improves on IV antibiotics we can arrange for an outpatient colonoscopy. Time-Based Coding :: [TOTAL MINUTES] spent with patient and on the chart (including review of chart, obtaining history, exam, reviewing outside data, placing orders, documenting exam and treatment plan, and counseling patient) on [DATE].
[2024-01-02 17:10] LABS: Bilirubin Urine UA NEGATIVE (NEGATIVE); Color Urine UA YELLOW; Glucose Urine UA 3+ g/dL (Negative); Ketones Urine UA NEGATIVE (NEGATIVE); Leukocyte Esterase Urine UA NEGATIVE (NEGATIVE); Nitrite Urine UA POSITIVE (Negative); Occult Blood Urine UA 1+ (Negative); Protein Urine UA TRACE (Negative)
[2024-01-02 17:12] LABS: Appearance Urine UA CLOUDY
[2024-01-02 17:32] LABS: Urine Volume 10mL (spun)
[2024-01-02 17:35] LABS: Bacteria Urine Many (>30); Culture Indicated Urine Specimen Cultured; RBC Urine 0-1/HPF (0-5/HPF); Squamous Epithelial Cell Urine 1-5 /HPF (0-5/HPF); WBC Urine 0-1/HPF (0-5/HPF)
[2024-01-02] MEDS: LACTATED RINGERS 1,000 ML 75 ML IV (18:59)
--- NOTE | 2024-01-02 19:13 | PM.CALLCOV.1 ---
Call Coverage Note Note Date of Patient Contact: 01/02/24 Time of Patient Contact: 19:13 Narrative of Care Provided: Appreciate surgical admission, medicine service to consult for diabetes and medical management. Blood glucose is 398, Will start with medium sliding scale and lantus 20 U nightly. Hold home dapagliflozin and metformin during admission. Will hold home BP medications for now as well given presentation with possible infection, and current normotension. Formal consultation to follow tomorrow morning.
[2024-01-02] MEDS: CIPROFLOXACIN 400 MG/200 ML PIGGYBACK 200 MG IV (21:02)
[2024-01-02] MEDS: INSULIN GLARGINE 100 UNIT/ML 3ML PEN 20 UNIT SUBCUT (21:30)
[2024-01-02] MEDS: INSULIN LISPRO 100 UNIT/ML 3ML VIAL SUBCUT (21:30)
[2024-01-03] MEDS: metroNIDAZOLE 500 MG/100 ML PIGGYBACK 100 MG IV ×3 (00:55→16:22)
[2024-01-03 01:02] VITALS: BP 137/91; PULSE 108; RESP 18; TEMP 37; O2SAT 94
[2024-01-03] MEDS: HYDROMORPHONE 0.5 MG INJ IV ×4 (02:01→09:59)
[2024-01-03 06:31] LABS: Add Manual Diff / Slide Review NO; Basophils Absolute Auto 100 /uL (0-100); Basophils Percent Auto 0.7 % (0-2); Eosinophils Absolute Auto 100 /uL (0-450); Eosinophils Percent Auto 1.3 % (2-4); Hematocrit 50.8 % (36-46); Hemoglobin 16.7 g/dL (12.0-16.0); Lymphocytes Absolute Auto 3100 /uL (1100-4500); Lymphocytes Percent Auto 29.3 % (25-40); Mean Corpuscular HGB Conc 32.9 % (30-36); Mean Corpuscular Hemoglobin 29.9 PG (26-34); Monocytes Absolute Auto 1000 /uL (0-900); Monocytes Percent Auto 9.7 % (3-14); Neutrophils Absolute Auto 6300 /uL (1500-7000); Platelet Count 275 X10^3/uL (150-400); Red Blood Cell Count 5.58 X10^6/uL (4.0-5.2); Red Cell Distribution Width 13.9 % (11.6-14.8); White Blood Cell Count 10.7 X10^3/uL (4.5-11.0)
[2024-01-03 06:46] LABS: BUN Creatinine Ratio 22.6 (6-22); Blood Urea Nitrogen 14 mg/dL (7-17); Calcium 8.5 mg/dL (8.4-10.2); Carbon Dioxide 25 mmol/L (22-32); Chloride 106 mmol/L (98-107); Estimated Glomerular Filt Rate > 60 mL/min (>60); Glucose 180 mg/dL (70-100); HEMOLYSIS < 15 (0-50); Potassium 3.9 mmol/L (3.4-5.1); Sodium 135 mmol/L (137-145)
[2024-01-03] MEDS: CIPROFLOXACIN 400 MG/200 ML PIGGYBACK 200 MG IV ×2 (08:49→20:45)
[2024-01-03] MEDS: LACTATED RINGERS 1,000 ML 75 ML IV (11:17)
[2024-01-03 11:20] VITALS: BP 139/85; PULSE 96; RESP 22; TEMP 36.5; O2SAT 94
[2024-01-03] MEDS: HYDROMORPHONE 1 MG INJ IV ×4 (12:21→20:44)
[2024-01-03] MEDS: ONDANSETRON 4 MG/2 ML INJ IV ×3 (12:26→20:45)
--- NOTE | 2024-01-03 13:53 | PM.PN.1 ---
Subjective Subjective Date Patient Seen: 01/03/24 Time Patient Seen: 13:53 Interval history: Feels about the same as yesterday. When asked, she would like to try to eat something. Exam Vital Signs (past 8 hours): - 01/03/24 09:00 01/03/24 11:20 Temperature 97.7 F Pulse Rate 96 H Respiratory Rate 22 Blood Pressure 139/85 Pulse Oximetry 94 Oxygen Delivery Method Room Air Oxygen Flow Rate 0 Oxygen Delivery Method Room Air Oxygen Flow Rate 0 Narrative Exam Narrative: Abdomen is soft, tender to palpation in the right lower quadrant Objective Labs 01/03/24 06:15 01/03/24 06:15 Labs: Laboratory Results - last 24 hr 01/02/24 01/03/24 17:00 06:15 WBC 10.7 RBC 5.58 H Hgb 16.7 H Hct 50.8 H MCV 91.0 MCH 29.9 MCHC 32.9 RDW 13.9 Plt Count 275 Neut % (Auto) 59.0 Lymph % (Auto) 29.3 [place] % (Auto) 9.7 Eos % (Auto) 1.3 L Baso % (Auto) 0.7 Neut # (Auto) 6300 Lymph # (Auto) 3100 [place] # (Auto) 1000 H Eos # (Auto) 100 Baso # (Auto) 100 Sodium 135 L Potassium 3.9 Chloride 106 Carbon Dioxide 25 BUN 14 Creatinine 0.62 Estimated GFR > 60 BUN/Creatinine Ratio 22.6 H Glucose 180 H D Calcium 8.5 Urine Color Yellow Urine Appearance Cloudy Urine pH 5.0 Ur Specific [place] 1.020 Urine Protein Trace H Urine Glucose (UA) 3+ H Urine Ketones Negative Urine Occult Blood 1+ H Urine Nitrate Positive H Urine Bilirubin Negative Urine Urobilinogen 1.0 Ur Leukocyte Esterase Negative Urine RBC 0-1/hpf Urine WBC 0-1/hpf Ur Squamous Epith Cells 1-5 /hpf Urine Bacteria Many (>30) H Ur Culture Indicated? Specimen cultured Vol Urine Centrifuged 10ml (spun) [facility] Medical History Paralysis Stroke (~2019) Tobacco dependence Hypertension (~2018) Surgical History History of section No history of previous surgery Family History Mother Stroke Cancer Diabetes mellitus Hyperlipidemia Hypertension Father Heart disease Epileptic seizure Brother Hyperlipidemia Brother Leukemia Sister Hypertension Grandfather Stroke Grandmother Cancer Social History household members: spouse and children Smoking Status: Current every day smoker alcohol intake: never Assessment & Plan Assessment and plan (1) Acute proctitis: Status: Acute Plan Trial of full liquid diet with NPO midnight Time-Based Coding :: [TOTAL MINUTES] spent with patient and on the chart (including review of chart, obtaining history, exam, reviewing outside data, placing orders, documenting exam and treatment plan, and counseling patient) on [DATE].
--- NOTE | 2024-01-03 14:27 | PM.CN ---
History of Present Illness Consult details Date Patient Seen: 01/03/24 Time Patient Seen: 14:27 Chief complaint: constipation t-3 Reason for consult: blood sugar and medical management. Requesting provider: Errol Isaac Narrative: 33 year old female with PMH of prior CVA, HTN, DM2 admitted with proctitis. Patient states recently her blood sugars have been in the 200s at home. Usually has normal blood pressures. She denies recent chest pain, shortness of breath, abdominal pain. She has had chronic neuropathy she states since her stroke. CT imaging yesterday showed a 4 cm soft tissue denisty near her rectum, unclear etiology. Patient is on cipro and flagyl, reports hives with penicillins. Today pain medications were increased, which has helped with her rectal pain today. Blood sugar was 398 on admit BMP, ordered 20 U lantus last evening and she has improved blood glucose this morning and afternoon. Meds Home Medications and Allergies Home Medications Medication Instructions Recorded Confirmed Type aspirin 81 mg tablet,delayed 81 mg PO DAILY #90 tabs 07/09/22 01/02/24 Rx release (Adult Aspirin Regimen) dapagliflozin propanediol 10 mg 10 mg PO DAILY #90 tabs 09/03/22 01/02/24 Rx tablet (Farxiga) lancets 30 gauge (TRUEplus Lancets) #100 ea 09/03/22 01/02/24 History losartan 50 mg tablet 50 mg PO DAILY #90 tabs 09/29/22 01/02/24 Rx amlodipine 5 mg tablet 5 mg PO DAILY #90 tabs 05/31/23 01/02/24 Rx atorvastatin 40 mg tablet 40 mg PO DAILY #90 tabs 05/31/23 01/02/24 Rx metformin 1,000 mg tablet,extended 1,000 mg PO BID #180 tabs 05/31/23 01/02/24 Rx release 24hr (osmotic) blood sugar diagnostic (Blood #300 ea 09/08/23 01/02/24 Rx Glucose Test strips) blood-glucose meter (Blood Glucose #1 ea 09/08/23 01/02/24 Rx Monitoring kit) lancets (Lancets, Super Thin) #300 ea 09/08/23 01/02/24 Rx Allergies Allergy/AdvReac Type Severity Reaction Status Date / Time Penicillins Allergy Unknown Rash Verified 05/10/23 09:45 hydrocodone AdvReac Unknown Nausea Verified 05/10/23 09:45 COCONUT OIL Allergy Unknown SKIN HIVES Uncoded 05/10/23 09:45 lisinopril AdvReac Intermediate Cough Uncoded 05/10/23 09:45 losartan AdvReac Intermediate cough, Uncoded 05/10/23 09:45 dizziness Review of Systems Review of Systems Narrative: All other systems reviewed with the patient and are negative unless otherwise stated. Exam Vital Signs (past 8 hours): - 01/03/24 09:00 01/03/24 11:20 Temperature 97.7 F Pulse Rate 96 H Respiratory Rate 22 Blood Pressure 139/85 Pulse Oximetry 94 Oxygen Delivery Method Room Air Oxygen Flow Rate 0 Oxygen Delivery Method Room Air Oxygen Flow Rate 0 Narrative Exam Narrative: Gen: no acute distress, though mildly ill appearing laying in bed on her left side. CV: RRR no m/r/g Pulm: diminished bilateral lower lung breath sounds, but no wheezing rhonchi or rales. Abd: S NT ND anteriorly Ext: No edema. Objective Labs 01/03/24 06:15 01/03/24 06:15 Labs: Laboratory Results - last 24 hr 01/02/24 01/03/24 17:00 06:15 WBC 10.7 RBC 5.58 H Hgb 16.7 H Hct 50.8 H MCV 91.0 MCH 29.9 MCHC 32.9 RDW 13.9 Plt Count 275 Neut % (Auto) 59.0 Lymph % (Auto) 29.3 [place] % (Auto) 9.7 Eos % (Auto) 1.3 L Baso % (Auto) 0.7 Neut # (Auto) 6300 Lymph # (Auto) 3100 [place] # (Auto) 1000 H Eos # (Auto) 100 Baso # (Auto) 100 Sodium 135 L Potassium 3.9 Chloride 106 Carbon Dioxide 25 BUN 14 Creatinine 0.62 Estimated GFR > 60 BUN/Creatinine Ratio 22.6 H Glucose 180 H D Calcium 8.5 Urine Color Yellow Urine Appearance Cloudy Urine pH 5.0 Ur Specific [place] 1.020 Urine Protein Trace H Urine Glucose (UA) 3+ H Urine Ketones Negative Urine Occult Blood 1+ H Urine Nitrate Positive H Urine Bilirubin Negative Urine Urobilinogen 1.0 Ur Leukocyte Esterase Negative Urine RBC 0-1/hpf Urine WBC 0-1/hpf Ur Squamous Epith Cells 1-5 /hpf Urine Bacteria Many (>30) H Ur Culture Indicated? Specimen cultured Vol Urine Centrifuged 10ml (spun) [facility] Medical History Paralysis Stroke (~2019) Tobacco dependence Hypertension (~2018) Surgical History History of section No history of previous surgery Family History Mother Stroke Cancer Diabetes mellitus Hyperlipidemia Hypertension Father Heart disease Epileptic seizure Brother Hyperlipidemia Brother Leukemia Sister Hypertension Grandfather Stroke Grandmother Cancer Social History household members: spouse and children Tobacco & Substance Use Smoking Status: Current every day smoker alcohol intake: never Assessment & Plan Assessment & Plan narrative: 1. Proctitis, present on admission - management per surgery at this time, continue cipro/flagyl. Patient is NPO at midnight, trial full liquids tonight. - okay to continue IV fluids. - increased pain medications today, with improvement in pain control this afternoon. 2. DM2 - hold home dapagliflozin, and metformin - A1c ordered for tomorrow AM last in our system was 12.8% - Continue lantus 20 U nightly for now, with medium sliding scale. No adjustments today. 3. Asymptomatic bacteuria - no urinary symptoms, UA positive. Any infection will likely be covered by antibiotics for problem 1 above. 4. HTN - continue to hold home losartan and amlodipine today. BP controlled today. Restart amlodipine if hypertensive. 5. prior CVA - continue home statin, okay to hold asa for now pending above surgical evaluation. Code: Full, surrogate is patient's mother DVT: Lovenox daily I have utilized all available immediate resources to obtain, update, or review the patient's current medications. Dispo: patient admitted under inpatient status. Likely discharge home, timing unclear currently. Additional history obtained via discussions with the ER provider and surgeon yesterday and today. These discussions contributed to the creation of the above assessment and plan. I have reviewed patient's presenting documentation, labs, and imaging personally. Time-Based Coding :: [TOTAL MINUTES] spent with patient and on the chart (including review of chart, obtaining history, exam, reviewing outside data, placing orders, documenting exam and treatment plan, and counseling patient) on [DATE].
--- NOTE | 2024-01-03 14:50 | CM.DANOTE ---
Patient is a 33 yo female who was admitted INPT Status on 01/02/24 for Constipation. Pt has [employer] and [employer] for insurance and her PCP is Nilda Lacy on [facility]. EMR was reviewed. Per Surgeon, pt with hx of DM and hypertension and admitted after multiple days of no bowel movement and pain and admitted for conservative tx of IV-Abx to r/o abscess, colitis, diverticultis. Surgeon plans to have pt advance to clear liquids this afternoon and evening to see how pt tolerates and then NPO after midnight in case scope needed. Per RN, pt also having difficulty with voiding urine and really not feeling well today. SW attempted to meet bedside with pt and explained role but pt confirms she is grumpy and not feeling well and confirms that she lives on [place] still with Sig Other and family and is independent at baseline and preference is to d/c home when stable but requests SW to come back again tomorrow when hopefully she is feeling better. JOSSELIN Joseph Discharge Planning/Care Management CM Discharge Assessment Start: 01/03/24 14:47 Freq: Status: Active Protocol: Document 01/03/24 14:48 BF (Rec: 01/03/24 14:49 BF [id number]) Discharge Planning Assessment Assigned Bi Architect JOSSELIN Winkler DPOA/Assigned Designee Name none Advance Directives? No Advance Directives on File No History Provided By Patient,Medical Record Has Patient been admitted in last 30 No days? Prior Living Arrangements House Household Members spouse,children Type of transporation used prior to Drives own vehicle admit Independent with ADL's Yes Is patient alert and oriented? Yes Caregiver for Another Yes: kids at home Barriers to Discharge No Discharge Plan Home Transportation Arrangement to be determined based on d/c needs. Spouse lives on [place] and sister lives in [place] Referrals Initiated None needed Whiteboard Updated in Patient Room with Yes name and ext. # of Bi Architect Review Status In Process Please Provide Date Initial DC 01/03/24 Assessment Was Performed Next Review Type Continued Stay Review
[2024-01-03 17:00] VITALS: BP 145/101; PULSE 95; RESP 20; TEMP 36.2; O2SAT 98
[2024-01-03] MEDS: INSULIN LISPRO 100 UNIT/ML 3ML VIAL SUBCUT ×2 (17:12→21:51)
[2024-01-03 20:00] VITALS: BP 140/80; PULSE 100; RESP 16; TEMP 36.4; O2SAT 96
[2024-01-03] MEDS: INSULIN GLARGINE 100 UNIT/ML 3ML PEN 20 UNIT SUBCUT (21:50)
[2024-01-04] MEDS: metroNIDAZOLE 500 MG/100 ML PIGGYBACK 100 MG IV ×3 (00:16→17:36)
[2024-01-04] MEDS: LACTATED RINGERS 1,000 ML 75 ML IV (03:22)
[2024-01-04] MEDS: ONDANSETRON 4 MG/2 ML INJ IV (03:35)
[2024-01-04 06:17] LABS: Add Manual Diff / Slide Review NO; Basophils Absolute Auto 100 /uL (0-100); Basophils Percent Auto 0.6 % (0-2); Eosinophils Absolute Auto 100 /uL (0-450); Eosinophils Percent Auto 1.5 % (2-4); Hematocrit 46.5 % (36-46); Hemoglobin 15.6 g/dL (12.0-16.0); Lymphocytes Absolute Auto 3400 /uL (1100-4500); Lymphocytes Percent Auto 34.1 % (25-40); Mean Corpuscular HGB Conc 33.5 % (30-36); Mean Corpuscular Hemoglobin 30.2 PG (26-34); Mean Corpuscular Volume 90.1 fL (80-100); Monocytes Absolute Auto 1100 /uL (0-900); Monocytes Percent Auto 10.6 % (3-14); Neutrophils Absolute Auto 5300 /uL (1500-7000); Neutrophils Percent Auto 53.2 % (50-75); Platelet Count 269 X10^3/uL (150-400); Red Blood Cell Count 5.16 X10^6/uL (4.0-5.2); Red Cell Distribution Width 13.9 % (11.6-14.8)
[2024-01-04 06:18] LABS: BUN Creatinine Ratio 15.9 (6-22); Blood Urea Nitrogen 11 mg/dL (7-17); Calcium 8.5 mg/dL (8.4-10.2); Carbon Dioxide 26 mmol/L (22-32); Chloride 102 mmol/L (98-107); Estimated Glomerular Filt Rate > 60 mL/min (>60); Glucose 141 mg/dL (70-100); HEMOLYSIS < 15 (0-50); Potassium 3.8 mmol/L (3.4-5.1); Sodium 134 mmol/L (137-145)
[2024-01-04 06:39] LABS: Hemoglobin A1C% w Est Avg Glu 13.1 % (4.0-6.0)
[2024-01-04] MEDS: HYDROMORPHONE 1 MG INJ IV (08:30)
[2024-01-04] MEDS: INSULIN LISPRO 100 UNIT/ML 3ML VIAL SUBCUT ×2 (08:30→12:30)
[2024-01-04] MEDS: CIPROFLOXACIN 400 MG/200 ML PIGGYBACK 200 MG IV (08:30)
--- NOTE | 2024-01-04 09:24 | PC.NURSE ---
Patient given 1mg of iv dilaudid as she was crying in pain this morning. She states that this has been effective for pain control. BT positive only in r.lower quadrant. She is able to get up to use the bathroom. She has ivf infusing and is tolerating this and her iv antibiotics well. Will suggest ambulation today, and see if patient is agreeable to walk. She is NPO at this time.
--- NOTE | 2024-01-04 11:39 | CM.DPC ---
DCP Cont. Reviewed EMR and team rounds for status updates. Pt's blood sugars have improved, pain medications have been increased due to acute pain. Pending plan for surgery, pt remains NPO. Will monitor closely for final d/c assistance/resource needs.
[2024-01-04 12:00] VITALS: BP 142/104; PULSE 81; RESP 18; TEMP 36.1; O2SAT 98
--- NOTE | 2024-01-04 14:24 | P.PN_ITS ---
Subjective Subjective Interval history: Still with pain, no bowel movements. Sugars were a bit elevated with full liquid meal yesterday, she is NPO today with glucose stable at 140 at breakfast and lunch. Exam Vital Signs (past 8 hours): - 01/04/24 12:00 Temperature 97 F L Pulse Rate 81 Respiratory Rate 18 Blood Pressure 142/104 H Pulse Oximetry 98 Oxygen Delivery Method Room Air Oxygen Flow Rate 0 Narrative Exam Narrative: Gen: no acute distress, though mildly ill appearing laying in bed on her left side. CV: RRR no m/r/g Pulm: diminished bilateral lower lung breath sounds, but no wheezing rhonchi or rales. Abd: S NT ND anteriorly Ext: No edema. Objective Labs 01/04/24 05:51 01/04/24 05:51 Labs: Laboratory Results - last 24 hr 01/04/24 05:51 WBC 10.0 RBC 5.16 Hgb 15.6 Hct 46.5 H MCV 90.1 MCH 30.2 MCHC 33.5 RDW 13.9 Plt Count 269 Neut % (Auto) 53.2 Lymph % (Auto) 34.1 [place] % (Auto) 10.6 Eos % (Auto) 1.5 L Baso % (Auto) 0.6 Neut # (Auto) 5300 Lymph # (Auto) 3400 [place] # (Auto) 1100 H Eos # (Auto) 100 Baso # (Auto) 100 Sodium 134 L Potassium 3.8 Chloride 102 Carbon Dioxide 26 BUN 11 Creatinine 0.69 Estimated GFR > 60 BUN/Creatinine Ratio 15.9 Glucose 141 H Hemoglobin A1c 13.1 H Calcium 8.5 PFSH Medical History Paralysis Stroke (~2019) Tobacco dependence Hypertension (~2018) Surgical History History of section No history of previous surgery Family History Mother Stroke Cancer Diabetes mellitus Hyperlipidemia Hypertension Father Heart disease Epileptic seizure Brother Hyperlipidemia Brother Leukemia Sister Hypertension Grandfather Stroke Grandmother Cancer Social History household members: spouse and children Smoking Status: Current every day smoker alcohol intake: never Assessment & Plan Assessment & Plan narrative: 1. Proctitis, present on admission - management per surgery at this time, continue cipro/flagyl. Patient is NPO currently. - okay to continue IV fluids. - pain control okay. 2. DM2 - hold home dapagliflozin, and metformin - A1c was 13.1%. last in our system was 12.8% - Continue lantus 20 U nightly for now, with medium sliding scale. No adjustments today. May need meal time coverage when diet resumed as fasting sugar is well controlled today. 3. Asymptomatic bacteuria - no urinary symptoms, UA positive. Any infection will likely be covered by antibiotics for problem 1 above. 4. HTN - continue to hold home losartan. Restarted amlodipine with slight hypertension today. 5. prior CVA - continue home statin, okay to hold asa for now pending above surgical evaluation. Code: Full, surrogate is patient's mother DVT: Lovenox daily I have utilized all available immediate resources to obtain, update, or review the patient's current medications. Dispo: patient admitted under inpatient status. Likely discharge home, timing unclear currently. Medicine will continue to follow. Time-Based Coding :: [TOTAL MINUTES] spent with patient and on the chart (including review of chart, obtaining history, exam, reviewing outside data, placing orders, documenting exam and treatment plan, and counseling patient) on [DATE].
--- NOTE | 2024-01-04 14:24 | PM.PN.1 ---
Subjective Subjective Date Patient Seen: 01/04/24 Time Patient Seen: 14:25 Interval history: Mehreen did well with her diet last night. Still no bowel movements. Exam Vital Signs (past 8 hours): - 01/04/24 12:00 Temperature 97 F L Pulse Rate 81 Respiratory Rate 18 Blood Pressure 142/104 H Pulse Oximetry 98 Oxygen Delivery Method Room Air Oxygen Flow Rate 0 Narrative Exam Narrative: Sleepy Objective Labs 01/04/24 05:51 01/04/24 05:51 Labs: Laboratory Results - last 24 hr 01/04/24 05:51 WBC 10.0 RBC 5.16 Hgb 15.6 Hct 46.5 H MCV 90.1 MCH 30.2 MCHC 33.5 RDW 13.9 Plt Count 269 Neut % (Auto) 53.2 Lymph % (Auto) 34.1 [place] % (Auto) 10.6 Eos % (Auto) 1.5 L Baso % (Auto) 0.6 Neut # (Auto) 5300 Lymph # (Auto) 3400 [place] # (Auto) 1100 H Eos # (Auto) 100 Baso # (Auto) 100 Sodium 134 L Potassium 3.8 Chloride 102 Carbon Dioxide 26 BUN 11 Creatinine 0.69 Estimated GFR > 60 BUN/Creatinine Ratio 15.9 Glucose 141 H Hemoglobin A1c 13.1 H Calcium 8.5 PFSH Medical History Paralysis Stroke (~2018) Tobacco dependence Hypertension (~2018) Surgical History History of section No history of previous surgery Family History Mother Stroke Cancer Diabetes mellitus Hyperlipidemia Hypertension Father Heart disease Epileptic seizure Brother Hyperlipidemia Brother Leukemia Sister Hypertension Grandfather Stroke Grandmother Cancer Social History household members: spouse and children Smoking Status: Current every day smoker alcohol intake: never Assessment & Plan Assessment and plan (1) Acute proctitis: Status: Acute Plan Regular diet Time-Based Coding :: [TOTAL MINUTES] spent with patient and on the chart (including review of chart, obtaining history, exam, reviewing outside data, placing orders, documenting exam and treatment plan, and counseling patient) on [DATE].
[2024-01-04 16:00] VITALS: BP 139/95; PULSE 87; RESP 18; TEMP 35.9; O2SAT 97
--- NOTE | 2024-01-04 18:30 | PC.NURSE ---
Addendum entered by [place] Danielson R.N. 01/04/24 19:14: Patient was given dilaudid earlier this morning and slept all shift, she ate all of her dinner. Original Note: Patient has decided to leave [facility]. is aware. She wants to go to another hospital.
--- NOTE | 2024-02-14 14:00 | P.DS_ITS ---
History of Present Illness History of Present Illness Chief complaint: constipation t-3 Discharge Providers Provider Date of admission: 01/02/24 17:55 Discharge Date: 01/04/24 Primary care physician: Nilda Lacy PA-C Discharge provider: Errol Isaac MD Summary Hospital Course Discharge Diagnosis: Proctitis Hospital Course: Patient was admitted ER with a diagnosis of proctitis following a CT scan that showed inflammation of the rectum and possible perirectal abscess. She was treated with IV antibiotics. After 2 days in the hospital she had decided to leave against medical advice. Exam Vital Signs (past 8 hours): Oxygen Delivery Method Room Air Oxygen Flow Rate 0 Objective Labs 01/04/24 05:51 01/04/24 05:51 [facility] Medical History Paralysis Stroke (~2018) Tobacco dependence Hypertension (~2018) Surgical History History of section No history of previous surgery Family History Mother Stroke Cancer Diabetes mellitus Hyperlipidemia Hypertension Father Heart disease Epileptic seizure Brother Hyperlipidemia Brother Leukemia Sister Hypertension Grandfather Stroke Grandmother Cancer Social History household members: spouse and children Smoking Status: Current every day smoker alcohol intake: never Discharge Plan Discharge Plan Patient Disposition: Left Against Medical Advice Discharge orders & Medications Prescriptions: Continued losartan 50 mg tablet 50 mg PO DAILY Qty: 90 1RF atorvastatin 40 mg tablet 40 mg PO DAILY Qty: 90 0RF amlodipine 5 mg tablet 5 mg PO DAILY Qty: 90 0RF metformin 1,000 mg tablet extended release 24 hr 1,000 mg PO BID Qty: 180 0RF (DME) blood-glucose meter [Blood Glucose Monitoring] Kit See Rx Instructions .Route Qty: 1 0RF Rx Instructions: to check blood sugars up to three times daily (DME) Blood Glucose Test Strip See Rx Instructions .Route Qty: 300 0RF Rx Instructions: test blood sugars up to three times a day (DME) lancets [Lancets, Super Thin] Misc See Rx Instructions .Route Qty: 300 0RF Rx Instructions: test blood sugars up to three times a day aspirin [Adult Aspirin Regimen] 81 mg tablet,delayed release (DR/EC) 81 mg PO DAILY Qty: 90 3RF Farxiga 10 mg tablet 10 mg PO DAILY Qty: 90 3RF hydrochlorothiazide 25 mg tablet 25 mg PO DAILY Qty: 30 0RF Follow up/Referrals: Nilda Lacy PA-C [Primary Care Provider] - Visit Report/Discharge Packet Stand Alone Forms: Patient Portal/API, Stroke Signs & Symptoms Discharge Data Primary Care Provider: Nilda Lacy
== END 2024-01-04 19:15 | disposition left against medical advice (07) | DRG 254 ==
LOC: ED 16:29 → AC 01-03 07:04
PROVIDERS: Internal Medicine; Admitting Provider Surgery; Emergency Provider Emergency Medicine; PCP Physician Assistant; Referring Provider Emergency Medicine; Visit Provider Surgery
DX: K62.89 Other specified diseases of anus and rectum (principal); E11.9 Type 2 diabetes mellitus without complications; I10 Essential (primary) hypertension; R82.71 Bacteriuria; F17.200 Nicotine dependence, unspecified, uncomplicated; Z79.84 Long term (current) use of oral hypoglycemic drugs; Z53.29 Procedure and treatment not carried out because of patient's decision for other reasons; Z86.73 Personal history of transient ischemic attack (TIA), and cerebral infarction without residual deficits
CPT/HCPCS: 36415; 51798; 74177; 80048; 80053; 81001; 81003; 81025; 82962; 83036; 83605; 83690; 85025; 87040; 87086; 96361; 96365; 96366; 96367; 96368; 96372; 96375; 96376; 99231; 99232; 99284; 99285; G0378; J0696; J0744; J1171; J1815; J2405; Q9967

== ENCOUNTER → 2024-03-23 13:35 | Outpatient (CLI) | payer OTHER, SELFPAY ==
[2024-01-02 18:19] VITALS: BMI 41.8
[2024-03-23 20:38] LABS: Appearance Urine UA CLEAR; Bilirubin Urine UA NEGATIVE (NEGATIVE); Color Urine UA YELLOW; Glucose Urine UA 3+ g/dL (Negative); Ketones Urine UA NEGATIVE (NEGATIVE); Leukocyte Esterase Urine UA NEGATIVE (NEGATIVE); Nitrite Urine UA NEGATIVE (Negative); Occult Blood Urine UA NEGATIVE (Negative); Protein Urine UA NEGATIVE (Negative); Specific Gravity Urine UA <=1.005 (1.000-1.035); Urobilinogen Urine UA 0.2 E.U./dL (0.2)
[2024-03-23 20:41] LABS: pH Urine UA 5.5 (4.5-8.0)
[2024-03-23 20:48] LABS: Alanine Aminotransferase 35 IU/L (<35); Albumin 3.8 g/dL (3.5-5.0); Albumin Globulin Ratio 1.1 (1.0-2.8); Alkaline Phosphatase 125 U/L (38-126); Aspartate Aminotransferase 30 IU/L (14-36); BUN Creatinine Ratio 23.7 (6-22); Bilirubin Total 0.8 mg/dL (0.2-1.3); Blood Urea Nitrogen 18 mg/dL (7-17); C-Reactive Protein Quant < 0.5 mg/dL (<1.0); Calcium 9.2 mg/dL (8.4-10.2); Carbon Dioxide 22 mmol/L (22-32); Chloride 102 mmol/L (98-107); Cholesterol 166 mg/dL (140-199); Estimated Glomerular Filt Rate > 60 mL/min (>60); Globulin 3.4 g/dL (1.7-4.1); Glucose 432 mg/dL (70-100); HDL Cholesterol 35 mg/dL (40-60); LDL Cholesterol Calculated 81 mg/dL (<100); Potassium 4.3 mmol/L (3.4-5.1); Sodium 132 mmol/L (137-145); Total Protein 7.2 g/dL (6.3-8.2); Triglycerides 249 mg/dL (35-150)
[2024-03-23 20:51] LABS: Add Manual Diff / Slide Review NO; Basophils Absolute Auto 0 /uL (0-100); Basophils Percent Auto 0.4 % (0-2); Eosinophils Absolute Auto 100 /uL (0-450); Eosinophils Percent Auto 0.8 % (2-4); Hematocrit 55.5 % (36-46); Hemoglobin 18.7 g/dL (12.0-16.0); Lymphocytes Absolute Auto 3100 /uL (1100-4500); Lymphocytes Percent Auto 39.6 % (25-40); Mean Corpuscular HGB Conc 33.6 % (30-36); Mean Corpuscular Hemoglobin 30.6 PG (26-34); Monocytes Absolute Auto 600 /uL (0-900); Monocytes Percent Auto 8.1 % (3-14); Neutrophils Absolute Auto 4000 /uL (1500-7000); Neutrophils Percent Auto 51.1 % (50-75); Platelet Count 208 X10^3/uL (150-400); White Blood Cell Count 7.9 X10^3/uL (4.5-11.0)
[2024-03-23 20:52] LABS: HEMOLYSIS 51 (0-50)
[2024-03-23 21:04] LABS: Bacteria Urine Occasional (0-1); Culture Indicated Urine Cult Not Indicated; RBC Urine 0-1/HPF (0-5/HPF); Squamous Epithelial Cell Urine 0-1 /HPF (0-5/HPF); Urine Volume 10mL (spun); WBC Urine 0-1/HPF (0-5/HPF)
[2024-03-23 21:23] LABS: TSH w/ Reflex to FT4 0.75 uIU/mL (0.47-4.68)
[2024-03-23 21:27] LABS: Creatinine Urine Random 15.82 mg/dL
[2024-03-23 21:32] LABS: Erythrocyte Sedimentation Rate 10 MM/HR (0-20)
[2024-03-23 21:32] LABS: Microalbumin Urine Random 3.9 mg/dL (0-1.6)
== END ==
PROVIDERS: PCP Family Medicine; Referring Provider Family Medicine; Visit Provider Family Medicine
DX: F17.200 Nicotine dependence, unspecified, uncomplicated (principal); E66.01 Morbid (severe) obesity due to excess calories; R21 Rash and other nonspecific skin eruption; Z68.43 Body mass index [BMI] 50.0-59.9, adult; G81.94 Hemiplegia, unspecified affecting left nondominant side; I10 Essential (primary) hypertension; E78.2 Mixed hyperlipidemia; I69.30 Unspecified sequelae of cerebral infarction; D75.1 Secondary polycythemia; R79.89 Other specified abnormal findings of blood chemistry
CPT/HCPCS: 80053; 80061; 80074; 81001; 82043; 82570; 82668; 84443; 85025; 85598; 85613; 85651; 86038; 86140; 86200; 86225

== ENCOUNTER → 2024-08-30 13:33 | Outpatient (CLI) | payer OTHER, SELFPAY ==
[2024-05-08 09:38] VITALS: BMI 41.8
[2024-08-30 19:59] LABS: Add Manual Diff / Slide Review NO; Basophils Absolute Auto 0 /uL (0-100); Basophils Percent Auto 0.3 % (0-2); Eosinophils Absolute Auto 100 /uL (0-450); Eosinophils Percent Auto 0.7 % (2-4); Hematocrit 56.1 % (36-46); Hemoglobin 19.4 g/dL (12.0-16.0); Lymphocytes Absolute Auto 4200 /uL (1100-4500); Lymphocytes Percent Auto 51.3 % (25-40); Mean Corpuscular HGB Conc 34.5 % (30-36); Mean Corpuscular Hemoglobin 31.3 PG (26-34); Mean Corpuscular Volume 90.8 fL (80-100); Monocytes Absolute Auto 600 /uL (0-900); Monocytes Percent Auto 7.5 % (3-14); Neutrophils Absolute Auto 3300 /uL (1500-7000); Neutrophils Percent Auto 40.2 % (50-75); Platelet Count 200 X10^3/uL (150-400); Red Blood Cell Count 6.18 X10^6/uL (4.0-5.2); White Blood Cell Count 8.3 X10^3/uL (4.5-11.0)
[2024-08-30 20:05] LABS: HEMOLYSIS 40 (0-50); Iron 104 ug/dL (37-170)
[2024-08-30 20:08] LABS: Alanine Aminotransferase 25 IU/L (<35); Albumin 3.9 g/dL (3.5-5.0); Albumin Globulin Ratio 1.2 (1.0-2.8); Alkaline Phosphatase 89 U/L (38-126); Aspartate Aminotransferase 23 IU/L (14-36); Bilirubin Total 0.6 mg/dL (0.2-1.3); Blood Urea Nitrogen 21 mg/dL (7-17); Calcium 9.6 mg/dL (8.4-10.2); Carbon Dioxide 20 mmol/L (22-32); Chloride 105 mmol/L (98-107); Estimated Glomerular Filt Rate > 60 mL/min (>60); Globulin 3.2 g/dL (1.7-4.1); Glucose 210 mg/dL (70-99); HEMOLYSIS 29 (0-50); Potassium 4.5 mmol/L (3.4-5.1); Sodium 136 mmol/L (137-145); Total Protein 7.1 g/dL (6.3-8.2)
[2024-08-30 20:15] LABS: Hemoglobin A1C% w Est Avg Glu 10.1 % (4.0-6.0)
[2024-08-30 20:19] LABS: Percent Iron Saturation 30 % (15-50); Total Iron Binding Capacity 351 ug/dL (265-497); Transferrin 292 mg/dL (206-381)
[2024-08-30 20:39] LABS: Ferritin 23 ng/mL (6-137)
[2024-09-01 16:11] LABS: Erythropoietin 12.9 mIU/mL (2.6-18.5)
== END ==
PROVIDERS: PCP Family Medicine; Visit Provider Family Medicine
DX: R79.89 Other specified abnormal findings of blood chemistry (principal); I10 Essential (primary) hypertension; D75.1 Secondary polycythemia; E11.59 Type 2 diabetes mellitus with other circulatory complications; R25.2 Cramp and spasm; N12 Tubulo-interstitial nephritis, not specified as acute or chronic
CPT/HCPCS: 80053; 82668; 82728; 83036; 83540; 83550; 85025; 87077; 87086; 87186

== ENCOUNTER → 2024-09-14 11:34 | Outpatient (CLI) | payer OTHER, SELFPAY ==
[2024-05-08 09:38] VITALS: BMI 41.8
[2024-09-14 20:11] LABS: Protein (Total) Urine Random 97 mg/dL (0-12); Protein Creatinine Ratio Urine 0.67 GRAM/24H
[2024-09-14 20:39] LABS: Microalbumi Creatinin Ratio Ur 319.0 ug/mg CR (<30)
== END ==
PROVIDERS: PCP Family Medicine; Visit Provider Family Medicine
DX: E11.59 Type 2 diabetes mellitus with other circulatory complications (principal); E11.29 Type 2 diabetes mellitus with other diabetic kidney complication; R80.9 Proteinuria, unspecified
CPT/HCPCS: 82043; 82570; 84156

== ENCOUNTER → 2024-10-05 11:25 | Outpatient (CLI) | payer OTHER, SELFPAY ==
[2024-05-08 09:38] VITALS: BMI 41.8
--- NOTE | 2024-10-05 11:44 | DI.RAD.S_ITS ---
PROCEDURE: XR LUMBAR SPINE 2-3V INDICATIONS: DISABILITY EVAL TECHNIQUE: 3 views of the lumbar spine were acquired. COMPARISON: None. FINDINGS: Bones: 5 [id number] vertebrae are present. There is normal bony alignment. No vertebral body compression fractures. No suspicious bony lesions. Soft tissues: Overlying bowel gas pattern is normal. No suspicious soft tissue calcifications. IMPRESSION: No acute bony abnormality. Dictated by: Matt Gonzalez M.D. on 10/07/2024 at 23:03 Approved by: Matt Gonzalez M.D. on 10/07/2024 at 23:04
--- NOTE | 2024-10-05 11:44 | DI.RAD.S_ITS ---
PROCEDURE: XR HIP W PEL IF DONE RT 2V INDICATIONS: DISABILITY EVAL TECHNIQUE: AP pelvis with lateral view(s) of the right hip(s). COMPARISON: None. FINDINGS: Bones: No fractures or dislocations. Pelvic ring appears intact. No suspicious bony lesions. Soft tissues: The visualized bowel gas pattern is normal. No suspicious soft tissue calcifications. Intrauterine device. IMPRESSION: No acute bony abnormality. Dictated by: Matt Gonzalez M.D. on 10/07/2024 at 23:01 Approved by: Matt Gonzalez M.D. on 10/07/2024 at 23:02
== END ==
LOC: RAD 11:40
PROVIDERS: PCP Family Medicine; Referring Provider Internal Medicine Cardiovascular Disease; Visit Provider Internal Medicine Cardiovascular Disease
DX: M54.50 Low back pain, unspecified (principal); M25.559 Pain in unspecified hip; Z97.5 Presence of (intrauterine) contraceptive device
CPT/HCPCS: 72100; 73502

== ENCOUNTER → 2024-11-15 13:42 | Outpatient (CLI) | payer OTHER, SELFPAY ==
[2024-05-08 09:38] VITALS: BMI 41.8
[2024-11-15 20:26] LABS: Hematocrit 56.2 % (36-46); Hemoglobin 19.2 g/dL (12.0-16.0); Mean Corpuscular HGB Conc 34.2 % (30-36); Mean Corpuscular Hemoglobin 31.7 PG (26-34); Mean Corpuscular Volume 92.7 fL (80-100); Platelet Count 201 X10^3/uL (150-400)
[2024-11-15 20:27] LABS: Alanine Aminotransferase 25 IU/L (<35); Albumin 3.8 g/dL (3.5-5.0); Albumin Globulin Ratio 1.1 (1.0-2.8); Alkaline Phosphatase 79 U/L (38-126); Blood Urea Nitrogen 21 mg/dL (7-17); Calcium 9.5 mg/dL (8.4-10.2); Carbon Dioxide 24 mmol/L (22-32); Chloride 103 mmol/L (98-107); Cholesterol 149 mg/dL (140-199); Estimated Glomerular Filt Rate > 60 mL/min (>60); Globulin 3.4 g/dL (1.7-4.1); Glucose 171 mg/dL (70-99); HDL Cholesterol 31 mg/dL (40-60); Potassium 4.4 mmol/L (3.4-5.1); Sodium 135 mmol/L (137-145); Total Protein 7.2 g/dL (6.3-8.2); Triglycerides 237 mg/dL (35-150)
[2024-11-15 20:28] LABS: HEMOLYSIS 85 (0-50)
[2024-11-15 20:56] LABS: Thyroid Stimulating Hormone 0.252 uIU/mL (0.47-4.68)
[2024-11-15 21:03] LABS: Ferritin 52 ng/mL (6-137)
== END ==
PROVIDERS: PCP Family Medicine; Visit Provider Family Medicine
DX: E11.65 Type 2 diabetes mellitus with hyperglycemia (principal); I69.351 Hemiplegia and hemiparesis following cerebral infarction affecting right dominant side; R79.89 Other specified abnormal findings of blood chemistry; I69.30 Unspecified sequelae of cerebral infarction; I10 Essential (primary) hypertension; M79.89 Other specified soft tissue disorders; I1A.0 Resistant hypertension; E11.59 Type 2 diabetes mellitus with other circulatory complications; E78.2 Mixed hyperlipidemia; E66.01 Morbid (severe) obesity due to excess calories; Z68.43 Body mass index [BMI] 50.0-59.9, adult; Z82.49 Family history of ischemic heart disease and other diseases of the circulatory system
CPT/HCPCS: 80053; 80061; 82310; 82728; 83970; 84443; 85027

== ENCOUNTER → 2025-01-24 11:06 | Outpatient (CLI) | payer OTHER, SELFPAY ==
[2024-05-08 09:38] VITALS: BMI 41.8
[2025-01-24 19:18] LABS: Hematocrit 56.6 % (36-46); Hemoglobin 19.5 g/dL (12.0-16.0); Mean Corpuscular HGB Conc 34.4 % (30-36); Mean Corpuscular Hemoglobin 31.8 PG (26-34); Mean Corpuscular Volume 92.3 fL (80-100); Platelet Count 228 X10^3/uL (150-400)
[2025-01-24 19:22] LABS: Magnesium 1.8 mg/dL (1.6-2.3)
[2025-01-24 19:39] LABS: Vitamin D 25 Hydroxy (D3) 25.3 ng/mL (30.0-100.0)
[2025-01-24 19:46] LABS: Free T4, Direct Thyroxine 1.35 ng/dL (0.78-2.19)
[2025-01-24 19:49] LABS: Lymphocytes Percent Manual 49.0 % (25-45); Neutrophils Absolute Manual 4794 /uL (3000-5900); RBC Morphology Normal Morphology; Segmented Neutrophils Percent 51.0 % (38-70); Total Cells Counted 100
[2025-01-24 19:57] LABS: Ferritin 73 ng/mL (6-137)
[2025-01-24 20:00] LABS: Thyroid Stimulating Hormone 0.581 uIU/mL (0.47-4.68)
[2025-01-25 17:36] LABS: Vitamin B12 764 pg/mL (239-931)
== END ==
PROVIDERS: PCP Family Medicine; Visit Provider Family Medicine
DX: I1A.0 Resistant hypertension (principal); E87.1 Hypo-osmolality and hyponatremia; R42 Dizziness and giddiness; R63.4 Abnormal weight loss
CPT/HCPCS: 82306; 82607; 82728; 83735; 84439; 84443; 84480; 85025